=== PATIENT | female | born 1950 | race Caucasian/White ===

== ENCOUNTER 2023-01-03 10:05 | Emergency (ER) | payer OTHER ==
--- OUTSIDE RECORDS SUMMARY | 2023-01-03 10:10 | XMS REPORT | Continuity of Care Document ---
:1950 Author Organization [facility] t Address [address] [place] [address] Care Team Providers Name Role Phone SAHARA Attending Clinician Unavailable KAE Attending Clinician Unavailable Shane Dumont Attending Clinician [phone] Thompson Dozier Attending Clinician Yoan Gilliam Attending Clinician Davian Boyer Attending Clinician Jermaine Go Attending Clinician Venkata Lizarraga Attending Clinician SAHARA Admitting Clinician Unavailable KAE Admitting Clinician Unavailable Thompson Dozier Admitting Clinician Yoan Gilliam Admitting Clinician Venkata Lizarraga Admitting Clinician Payers Payer Name Policy Type Policy Number Effective Date Expiration Date S rodger [place]ICARE [place]: [id number] 2014 [employer] 00:00:00 [employer] [id number] 2018 [employer] 00:00:00 (MEDICARE SUPPLEMENT) CGS (MEDICARE DME [id number] 2014 [facility]) 00:00:00 [id number] 2018-07-24 INSURANCE COMPANY 00:00:00 (MEDICARE SUPPLEMENT) Problems Condition Condition Condition Status Onset Resolution Last Treating Co mments Source Name Details Category Date Date Treatment Clinician Date Chronic Chronic Problem Active Janny pain 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 00:00: dic 00 Sports Medicin e Lumbar Lumbar Problem Active Janny radiculopa Radiculopa 5-06 Or thope thy thy 00:00: dic 00 Sports Medicin e Pain of Pain of Problem Active Janny right knee Right Knee 5-06 Or thope joint Joint 00:00: dic 00 Sports Medicin e History of History of Problem Active A zalea revision Revision 03-28 Orthop e of right of Right 00:00: dic total knee Total Knee 00 Sp orts arthroplas Arthroplas Me dicin ty ty e Insertiona Insertiona Problem Active A zalea l Achilles l Achilles 08-16 Or thope tendinopat Tendinopat 00:00: di c hy hy 00 Sports Medicin e Contractur Contractur Problem Active A zalea e of right e of Right 08-16 Or thope Achilles Achilles 00:00: dic tendon Tendon 00 Sports Medicin e Pain in Pain in Problem Active Janny right knee Right Knee 05-24 Or thope 00:00: dic 00 Sports Medicin e NEW PT/ NEW PT/ Diagnosis Active 2016-112017-11-03 Memoria ABNORMAL ABNORMAL 2-11 15:20:00 l IMAGING OF IMAGING OF 00:00: He kareem HEART AND HEART AND 00 CO CO Active 11/02/2017 [facility] Z12.31 - Z12.31 - Diagnosis Active 2017-08-14 Memfanny ENCNTR ENCNTR 9-05 14:12:00 l SCREEN SCREEN 00:01: [place] MAMMOGRAM MAMMOGRAM 00 FOR MA FOR MA Active 07/28/2017 NIKHIL Vergara CP CP Active Diagnosis Active 2015-03-09 Memoria 03/07/2015-15 14:29:00 l NIKHIL Vergara 00:00: [facility] 00 Encounter Encounter Problem 2017-08-10 Memfanny for for 00:58:37 l screening screening Herm srinivasan mammogram mammogram for for malignant malignant neoplasm neoplasm of breast of breast 08/10/2017 NIKHIL Vergara Essential Essential Problem 2018-03-09 Memoria (primary) (primary) 19:31:08 l hypertensi hypertensi Galileo serna on on 03/09/2018 [facility] Hyperlipid Hyperlipi Problem 2018-03-09 Memoria artie poon, 19:31:08 l unspecifie unspecifie He rmann d d 03/09/2018 [facility] Mass of Mass of Problem Resolve 2018-03-09 M sarah beth colon colon d 19:31:08 l (finding) (finding) Herm srinivasan Resolved Problem 03/09/2018 [facility] Hypertensi Hypertens Problem Active 2018-03-09 Memoria ve nedra 19:31:08 l disorder, disorder, Herm srinivasan systemic systemic arterial arterial (disorder) (disorder) Active Problem 03/09/2018 [facility] Hyperchole Hyperchol Problem Active 2018-03-09 Memoria sterolemia esterolemi 19:31:08 l (disorder) a Josiah n (disorder) Active Problem 03/09/2018 [facility] ENCNTR FOR ENCNTR Diagnosis Active 2017-11-03 [place] GENERAL FOR 15:20:00 l ADULT GENERAL [facility] MEDICAL ADULT EXAM W/ MEDICAL EXAM W/ Active [facility] History of Past Illness Condition Condition Condition Status Onset Resolution Last Treating Co mments Source Name Details Category Date Date Treatment Clinician Date Other Other Problem 2017-2018-03-09 2018-03-09 Memoria chest pain chest pain 1-13 19:31:08 19:31:08 l 12/05/2017 05:19: Josiah n 03/09/2018 13 [facility] Allergies, Adverse Reactions, Alerts Allergy Allergy Status Severity Reaction(s) Onset Inactive Treating Comm ents Source Name Type Date Date Clinician Codeine Allergy Active Janny to Orthope substanc dic e Sports Medicin e Social History Social Habit Start Date Stop Date Quantity Comments Source Social History 2015-03-08 2015-03-08 [facility] 07:43:26 07:43:26 Medications Ordered Filled Start Stop Current Ordering Indication Dosage Frequency Signature Comments Components Source Medication Medication Date Date Medication? Clinician (SIG) Name Name Protonix 2018- No 20 mg, Memoria 1-10 Route: PO, l 22:30: Drug form: ECTAB, Before Dinner, Dosing Weight 86.364, kg, Start date: 12/02/17 16:30:00 [employer], Duration: 30 day, Stop date: 12/31/17 16:30:00 [employer] Miralax No Notes: Memoria 1-10 Dissolve l 15:00: in 8 oz of water or juice. (Same as: Miralax) Losartan No Notes: Memoria 1-10 (Same as: l 15:00: Cozaar) Hydrochloro No Notes: Mohsen kalin thiazide 25 1-10 (Same as: l MG Oral 15:00: Hydrodiuri Herm srinivasan Tablet 00 l) With food. rosuvastati No Notes: Mohsen kalin n 1-10 (Same As: l 03:00: Crestor) pantoprazol Yes 20 mg = 1 M emoria e 20 MG 1-10 tab, PO, l Enteric 00:12: Before Blair 00 Dinner, # Tablet 30 tab, 0 [Protonix] Refill(s) oxybutynin No Notes: Memor ia 12-01 Same as: l 23:00: Ditropan) Aspirin 325 Yes 325 mg = 1 Memoria MG Oral 09 tab, PO, l Tablet 21:52: Bedtime, # Madelyn nn 00 30 tab, 0 Refill(s) Vitamin E Yes 400 Memoria 09 IntlUnit, l 21:52: PO, BID, 0 Refill(s) rosuvastati No 20 mg = 1 M emoria n 20 mg -09 tab, PO, l oral tablet 21:52: Bedtime, 0 Refill(s) Nitroglycer No Notes: Mohsen kalin in 0.4 MG 12-01 (Same l Sublingual 20:05: as:Nitroqu H ermann Tablet 00 ick, Nitrostat) "Do Not Crush" Sublingual tablet Miralax Yes 17 gm, PO, Mohsen kalin - Daily l 17:36: oxybutynin Yes 5 mg = 1 Mem oria 5 mg oral 12-01 tab, PO, l tablet 17:35: BID BD Normal No Notes: Memori a Saline 12-01 (Same as: l Flush 13:00: BD Blair 00 Posiflush) Nitroglycer No Notes: (20 Memoria in 0.02 1-09 mg NTG per l MG/MG 12:42: gram) Blair Topical 00 (Same Ointment as:Nitro-B id) Saline No Notes: Memoria Flush 0.9% 12-01 (Same as: l 12:42: BD [place] 00 Posiflush) rosuvastati 2016-11 Yes 20 mg = 1 M emoria n 20 mg 2-12 tab, PO, l oral tablet 20:49: Bedtime, # Blair 00 90 tab, 3 Refill(s), Pharmacy: [facility] [id number] Vitamin E 2016-11 Yes PO, Daily, Me moria 2-12 0 l 17:31: Refill(s) [place] 00 Vitamin D3 2016-11 Yes 0 Memoria 2-12 Refill(s) l 17:31: Blair 00 oxybutynin 2016-11 Yes 10 mg = 1 Me moria 10 mg oral 2-12 tab, PO, l tablet, 17:31: Daily, 0 Josiah n extended 00 Refill(s) release Enoxaparin No Notes: Memor ia 4-16 (Same as: l 15:00: Lovenox) Blair 00 Potassium No Notes: Memori a Chloride 20 4-16 (Same as: l MEQ 14:18: K-Dur 20) Harrison Extended 00 "Do Not Release Crush" Tablet With food and full glass of water Saline No Notes: Memoria Flush 0.9% -16 (Same as: l 14:00: BD [place] Posiflush) Famotidine Yes 1 tab, PO, M emoria 26.6 MG / 4-16 TID, 0 l Ibuprofen 07:23: Refill(s) Her hopson 800 MG Oral 00 Tablet [Duexis] losartan Yes 100 mg = 1 Mem oria 100 mg oral 4-16 tab, PO, l tablet 07:23: Daily, 0 Blair 00 Refill(s) pravastatin Yes 40 mg = 1 M emoria 40 mg oral 4-16 tab, PO, l tablet 07:23: Bedtime, 0 Madelyn nn 00 Refill(s) Hydrochloro Yes 25 mg = 1 M emoria thiazide 25 03-08 tab, PO, l MG Oral 07:23: Daily, 0 Josiah n Tablet 00 Refill(s) Saline No Notes: Memoria Flush 0.9% 03-08 (Same as: l 07:02: BD [place] Posiflush) Acetaminoph No Notes: Do M emoria en 03-08 not exceed l 07:02: 4 gm/day. Blair (Same as: Tylenol) Morphine No Notes: Memoria 03-08 (Same l 07:02: as:MORPhin e Sulfate) Nitroglycer No Notes: Mohsen kalin in 03-08 (Same l 07:02: as:Nitroqu ick, Nitrostat) "Do Not Crush" Sublingual tablet Ondansetron No Notes: Mohsen kalin 03-08 (Same as: l 07:02: Zofran) Tramadol No 50 kg, Memori a 03-08 Priority: l 05:18: STAT, Blair 00 Start date: 03/08/15 0:18:00, Stop date: 03/08/15 0:18:00 Sodium No IV, 0 Memoria Chloride 4-16 ml/hr, l 0.9% IV 03:55: PRN, PRN Josiah n 00 Line Flush, Start date: 03/07/15 22:55:00, Duration: 30, 25 ml Saline No Notes: Memoria Flush 0.9% 03-08 (Same as: l 03:53: BD [place] Posiflush) Aspirin No Notes: Memoria -16 Take with l 03:53: food. Blair 00 influenza 2006- No Anais L 0.5 ml, M emoria virus -14 [place] Route: IM, l vaccine, 15:00: Drug Form: Her hopson inactivated 00 INJ, ONCE, Start date: 11/05/07 9:00:00, Stop date: 11/05/07 9:00:00LOT #: ___ Mfg: (Same as: Fluzone) acetaminoph acetaminoph No acetaminop Janny en 300 en 300 hen 300 Orthope mg-codeine mg-codeine mg-codeine dic 30 mg 30 mg 30 mg Sports tablet TK tablet TK tablet TK Medicin 1-2 TS PO Q 1-2 TS PO Q 1-2 TS PO e 6 HOURS PRN 6 HOURS PRN Q 6 HOURS PRN allopurinol allopurinol No allopurino Janny 100 mg 100 mg l 100 mg Orthope tablet tablet tablet dic Sports Medicin e atorvastati atorvastati No atorvastat Janny n 10 mg n 10 mg in 10 mg Ortho pe tablet tablet tablet dic Sports Medicin e atorvastati atorvastati No atorvastat Janny n 80 mg n 80 mg in 80 mg Ortho pe tablet tablet tablet dic Sports Medicin e cefuroxime cefuroxime No cefuroxime Janny axetil 250 axetil 250 axetil 250 Orthope mg tablet mg tablet mg tablet dic TAKE 1 TAKE 1 TAKE 1 Sports TABLET BY TABLET BY TABLET BY Medicin MOUTH TWICE MOUTH TWICE MOUTH e DAILY FOR 5 DAILY FOR 5 TWICE DAYS DAYS DAILY FOR 5 DAYS [facility] Janny Orthope dic Sports Medicin e doxycycline doxycycline No doxycyclin Janny monohydrate monohydrate e O rthope 100 mg 100 mg monohydrat dic capsule capsule e 100 mg Sport s TAKE 1 TAKE 1 capsule Medicin CAPSULE BY CAPSULE BY TAKE 1 e MOUTH TWICE MOUTH TWICE CAPSULE BY DAILY FOR 5 DAILY FOR 5 MOUTH DAYS DAYS TWICE DAILY FOR 5 DAYS duloxetine duloxetine No duloxetine Janny 30 mg 30 mg 30 mg Orthope capsule,del capsule,del capsule,de dic ayed ayed layed Sports release release release Medici n TAKE 1 TAKE 1 TAKE 1 e CAPSULE BY CAPSULE BY CAPSULE BY MOUTH EVERY MOUTH EVERY MOUTH DAY DAY EVERY DAY fluconazole fluconazole No fluconazol Janny 100 mg 100 mg e 100 mg Orthope tablet tablet tablet dic Sports Medicin e glucosamine glucosamine No glucosamin Janny 116 116 e 116 Orthope mg-chondroi mg-chondroi mg-chondro dic tin 100 tin 100 itin 100 Sport s mg-dietary mg-dietary mg-dietary Medicin supplement supplement supplement e #25 capsule #25 capsule #25 Take by Take by capsule oral route. oral route. Take by oral route. hydrochloro hydrochloro No hydrochlor Janny thiazide 25 thiazide 25 othiazide Orthope mg tabs mg tabs 25 mg tabs dic Sports Medicin e hydrochloro hydrochloro No hydrochlor Janny thiazide thiazide othiazide Or thope 12.5 mg 12.5 mg 12.5 mg dic tablet tablet tablet Sports Medicin e hydrochloro hydrochloro No hydrochlor Janny thiazide 25 thiazide 25 othiazide Orthope mg tablet mg tablet 25 mg dic tablet Sports Medicin e hydrocodone hydrocodone No hydrocodon Janny 5 5 e 5 Orthope mg-acetamin mg-acetamin mg-acetami dic ophen 325 ophen 325 nophen 325 Sports mg tablet mg tablet mg tablet Medicin TAKE 1 TO 2 TAKE 1 TO 2 TAKE 1 TO e TABLETS BY TABLETS BY 2 TABLETS MOUTH EVERY MOUTH EVERY BY MOUTH 4 TO 6 4 TO 6 EVERY 4 TO HOURS HOURS 6 HOURS NEEDED FOR NEEDED FOR NEEDED FOR PAIN PAIN PAIN losartan losartan No losartan Aza edwige 100 mg 100 mg 100 mg Orthope tablet tablet tablet dic Sports Medicin e losartan losartan No losartan Aza edwige potassium potassium potassium Orthope 100 mg tabs 100 mg tabs 100 mg dic tabs Sports Medicin e meloxicam meloxicam No meloxicam Janny 15 mg 15 mg 15 mg Orthope tablet TAKE tablet TAKE tablet dic 1 TABLET BY 1 TABLET BY TAKE 1 Sports MOUTH EVERY MOUTH EVERY TABLET BY Medicin DAY DAY MOUTH e EVERY DAY meloxicam meloxicam No meloxicam Janny 7.5 mg 7.5 mg 7.5 mg Orthope tablet tablet tablet dic Sports Medicin e methylpredn methylpredn No methylpred Janny isolone 4 isolone 4 nisolone 4 Orthope mg tablets mg tablets mg tablets dic in a dose in a dose in a dose Sports pack FOLLOW pack FOLLOW pack M edicin PACKAGE PACKAGE FOLLOW e DIRECTIONS DIRECTIONS PACKAGE DIRECTIONS metoprolol metoprolol No metoprolol Janny succinate succinate succinate Orthope ER 25 mg ER 25 mg ER 25 mg dic tablet,exte tablet,exte tablet,ext Sports nded nded ended Medicin release 24 release 24 release 24 e hr hr hr mupirocin 2 mupirocin 2 No mupirocin Janny % topical % topical 2 % Ortho pe ointment ointment topical dic APPLY SMALL APPLY SMALL ointment Sports AMOUNT AMOUNT APPLY Medicin TOPICALLY TOPICALLY SMALL e IN EACH IN EACH AMOUNT NOSTRIL NOSTRIL TOPICALLY TWICE DAILY TWICE DAILY IN EACH BEFORE BEFORE NOSTRIL SURGERY FOR SURGERY FOR TWICE 7 DAYS 7 DAYS DAILY BEFORE SURGERY FOR 7 DAYS nitroglycer nitroglycer No nitroglyce Janny in 0.4 mg in 0.4 mg rin 0.4 mg Orthope sublingual sublingual sublingual dic tablet tablet tablet Sports PLACE [address] 1 Medici n TABLET TABLET TABLET e UNDER THE UNDER THE UNDER THE TONGUE AT TONGUE AT TONGUE AT FIRST SIGN FIRST SIGN FIRST SIGN OF ATTACK OF ATTACK OF ATTACK MAY REPEAT MAY REPEAT MAY REPEAT DOSE EVERY DOSE EVERY DOSE EVERY 5 MINUTES 5 MINUTES 5 MINUTES UP TO 3 UP TO 3 UP TO 3 TABLETS IF TABLETS IF TABLETS IF NO RELIEF NO RELIEF NO RELIEF CALL 911 CALL 911 CALL 911 oxybutynin oxybutynin No oxybutynin Janny chloride 5 chloride 5 chloride 5 Orthope mg tablet mg tablet mg tablet dic Sports Medicin e oxybutynin oxybutynin No oxybutynin Janny chloride ER chloride ER chloride Orthope 10 mg 10 mg ER 10 mg dic tablet,exte tablet,exte tablet,ext Sports nded nded ended Medicin release 24 release 24 release 24 e hr hr hr oxybutynin oxybutynin No oxybutynin Janny chloride ER chloride ER chloride Orthope 5 mg 5 mg ER 5 mg dic tablet,exte tablet,exte tablet,ext Sports nded nded ended Medicin release 24 release 24 release 24 e hr hr hr oxycodone-a oxycodone-a No oxycodone- Janny cetaminophe cetaminophe acetaminop Orthope n 5 mg-325 n 5 mg-325 hen 5 di c mg tablet mg tablet mg-325 mg Sports TAKE 1 TO 2 TAKE 1 TO 2 tablet Medicin TABLETS BY TABLETS BY TAKE 1 TO e MOUTH THREE MOUTH THREE 2 TABLETS TIMES DAILY TIMES DAILY BY MOUTH NEEDED NEEDED THREE TIMES DAILY NEEDED pravastatin pravastatin No pravastati Janny sodium 40 sodium 40 n sodium O rthope mg tabs mg tabs 40 mg tabs dic Sports Medicin e resveratrol resveratrol No resveratro Janny l Orthope dic Sports Medicin e sulfamethox sulfamethox No sulfametho Janny azole 800 azole 800 xazole 800 Orthope mg-trimetho mg-trimetho mg-trimeth dic prim 160 mg prim 160 mg oprim 160 Sports tablet TAKE tablet TAKE mg tablet Medicin 1 TABLET BY 1 TABLET BY TAKE 1 e MOUTH EVERY MOUTH EVERY TABLET BY 12 HOURS 12 HOURS MOUTH EVERY 12 HOURS vitamin vitamin No vitamin Janny C-vitamin C-vitamin C-vitamin Orthope [id number] [id number] [id number] dic Sports Medicin e Vitamin D3 Vitamin D3 No Vitamin D3 Janny Orthope dic Sports Medicin e vitamin E vitamin E No vitamin E Janny Orthope dic Sports Medicin e Immunizations Ordered Immunization Filled Immunization Date Status Commen ts Source Name Name influenza virus 2007-11-06 Completed [facility] vaccine, inactivated 00:15:00 Herm srinivasan influenza virus 2007-11-06 Completed [facility] vaccine, inactivated 00:15:00 Herm srinivasan Vital Signs Vital Name Observation Time Observation Value Comments Source Systolic (mm Hg) 2017-12-02 02:27:00 Mohsen rial [place] Diastolic (mm Hg) 2017-12-02 02:27:00 Mem orial [place] Respitory Rate 2017-12-02 02:27:00 Memori al [facility] Heart Rate 2017-12-02 02:27:00 [facility] Temperature Oral (F) 2017-12-02 02:27:00 97.9 F [facility] Systolic (mm Hg) 2017-12-01 21:19:00 Mohsen rial [place] Diastolic (mm Hg) 2017-12-01 21:19:00 Mem orial [place] Respitory Rate 2017-12-01 21:19:00 Memori al [place] Temperature Oral (F) 2017-12-01 21:19:00 98.1 F [facility] [place] Heart Rate 2017-12-01 21:19:00 [facility] [place] Systolic (mm Hg) 2017-12-01 20:22:00 Mohsen rial [place] Diastolic (mm Hg) 2017-12-01 20:22:00 Mem orial [place] Temperature Oral (F) 2017-12-01 20:22:00 98.0 F [facility] [place] Respitory Rate 2017-12-01 20:22:00 Memori al [facility] Heart Rate 2017-12-01 16:19:00 [facility] Weight 2017-12-01 11:21:00 [facility] BMI Calculated 2017-12-01 11:21:00 Memori al [place] Height 2017-12-01 11:21:00 182.88 cm [facility] Height 2017-11-03 20:33:00 182.88 cm [facility] Weight 2017-11-03 20:33:00 [facility] BMI Calculated 2017-11-03 20:33:00 Memori al [place] Temperature Oral (F) 2017-11-03 20:33:00 98.6 F [facility] Respitory Rate 2017-11-03 20:33:00 Memori al [place] Systolic (mm Hg) 2017-11-03 20:33:00 Mohsen rial [place] Diastolic (mm Hg) 2017-11-03 20:33:00 Mem orial [place] Heart Rate 2017-11-03 20:33:00 [facility] Respitory Rate 2015-03-08 17:00:00 Memori al [place] Heart Rate 2015-03-08 17:00:00 [facility] [place] Diastolic (mm Hg) 2015-03-08 17:00:00 Mem orial [place] Systolic (mm Hg) 2015-03-08 17:00:00 Mohsen rial [place] Diastolic (mm Hg) 2015-03-08 13:11:00 Mem orial [place] Systolic (mm Hg) 2015-03-08 13:11:00 Mohsen rial [place] Respitory Rate 2015-03-08 13:11:00 Memori al [place] Heart Rate 2015-03-08 13:11:00 [facility] [place] Heart Rate 2015-03-08 09:37:00 [facility] Temperature Oral (F) 2015-03-08 09:37:00 97.4 F [facility] Systolic (mm Hg) 2015-03-08 09:37:00 Mohsen rial [place] Diastolic (mm Hg) 2015-03-08 09:37:00 Mem orial [place] Respitory Rate 2015-03-08 09:37:00 Memori al [place] Weight 2015-03-08 07:29:00 [facility] BMI Calculated 2015-03-08 07:29:00 Memori al [place] Height 2015-03-08 07:29:00 180.34 cm [facility] Temperature Oral (F) 2015-03-08 07:18:00 97.3 F [facility] Temperature Oral (F) 2015-03-08 06:15:00 98.3 F [facility] Weight 2015-03-08 03:34:00 [facility] BMI Calculated 2015-03-08 03:34:00 Esther Loving Height 2015-03-08 03:34:00 182.88 cm [facility] Procedures Procedure Date / Time Performing Clinician Source Performed Revision of Total Knee 2021-12-02 00:00:00 Saeid gan Orthopedic Arthroplasty, All Sports Medicin e Components Total Replacement of 2020-06-18 00:00:00 Janny Orthopedic Right Knee Joint Sports Medicine Repair of Meniscus 2019-04-21 00:00:00 Janny Or thopedic Sports Medicine Endoscopy 2018-03-24 00:00:00 Janny Ortho pedic Sports Medicine Biopsy of Tongue 2018-02-23 00:00:00 Janny Orth opedic Sports Medicine Foot repair 2014-12-01 06:00:00 Haydee emiliana Removal of Bone 2013-11-23 00:00:00 Janny Ortho pedic Fragments Sports Medicine Colostomy 1997-12-01 06:00:00 Haydee emiliana Revision of Colostomy 1997-11-23 00:00:00 Janny Orthopedic Sports Medicine Sigmoid Colectomy 1997-11-23 00:00:00 Janny Howard hopedic Sports Medicine Hysterectomy 1984-12-01 06:00:00 [facility] Her hopson Hysterectomy 1984-11-23 00:00:00 Janny Ortho pedic Sports Medicine Excision of Janny Orthopedi c Intra-abdominal Mass Sports Medi cine Encounters Start End Encounter Admission Attending Care Care Encounter Source Date/Time Date/Time Type Type Clinicians Facility Department ID 2022-06-03 2022-06-03 Outpatient ZAZ_GOODFRI AOSM AOSM [id number] Janny 10:25:00 10:25:00 ED_MILVIA [id number] Orth ope dic Sports Medicin e 2022-06-03 2022-06-03 Outpatient ZAZ_GOODFRI AOSM AOSM [id number] Janny 00:00:00 00:00:00 EDSUDHA [id number] Orth ope dic Sports Medicin e 2022-06-02 2022-06-02 Outpatient OLS_GOODFRI AOSM AOSM [id number] Janny 12:19:00 12:19:00 EDNGUYENJr [id number] Orthop e dic Sports Medicin e 2022-05-15 2022-05-15 Outpatient ZAZ_GOODFRI AOSM AOSM [id number] Ajnny 02:43:00 02:43:00 ED_MILVIA [id number] Orth ope dic Sports Medicin e 2022-05-15 2022-05-15 Outpatient OLS_GOODFRI AOSM AOSM [id number] Janny 02:43:00 02:43:00 ED_DENISSE [id number] Orthop e dic Sports Medicin e 2022-05-15 2022-05-15 Outpatient ZAZ_GOODFRI AOSM AOSM [id number] Janny 02:43:00 02:43:00 ED_MILVIA [id number] Orth ope dic Sports Medicin e 2022-05-09 2022-05-09 Outpatient OLS_GOODFRI AOSM AOSM [id number] Janny 09:31:00 09:31:00 ED_DENISSE [id number] Orthop e dic Sports Medicin e 2022-05-09 2022-05-09 Outpatient AMINAH Dumont AOSM [id number] 00:00:00 00:00:00 Shane Lugo [id number] 2022-05-09 2022-05-09 Shane Lugo AOSM [place] - Ortho [id number] Janny 00:00:00 00:00:00 Radha Dumont MD: 708 E OLS [place] [place] [facility] Sports , Clinic_[facility] e [id number] , Ph. 2022-04-04 2022-04-04 Outpatient ZAZ_GOODFRI AOSM AOSM [id number] Janny 11:26:00 11:26:00 ED_MILVIA [id number] Orth ope dic Sports Medicin e 2022-04-04 2022-04-04 Outpatient ZAZ_GOODFRI AOSM AOSM [id number] Janny 11:26:00 11:26:00 EDSUDHA [id number] Orth ope dic Sports Medicin e 2017-12-01 2017-12-02 Observatio nullFlavo [facility] [id number] Memoria 11:09:00 03:15:00 n r [place] 05 l [facility] 2017-12-01 2017-12-01 Outpatient Jacoby, NIKHIL9 [facility] [id number] 05:09:00 21:15:00 Fakhri H 05 2017-12-01 2017-12-01 Outpatient Jacoby, 9 [facility] [id number] 05:09:00 21:15:00 Fakhri H 05 2017-11-11 2017-11-12 Outpatient nullFlavo [facility] [id number] Memoria 12:58:00 05:59:00 r [place] 04 [facility] 2017-11-11 2017-11-11 Outpatient Yoan Gilliam9 9 [id number] 06:58:00 23:59:00 [facility] 2017-11-03 2017-11-04 Outpatient [facility] [id number] Memoria 20:17:00 05:59:00 r [facility] 01 l Cardiology [facility] 2017-11-03 2017-11-03 Outpatient Yoan Gilliam [facility] [id number] 14:17:00 23:59:00 Ahmed 2017-09-30 2017-10-01 Outpt Diag nullFlavo [facility] [id number] Memoria 15:46:00 05:59:00 Services r Outpatient 04 l [facility] 2017-09-30 2017-09-30 Outpatient JESÚS Boyer MH28 [id number] 09:46:00 23:59:00 Davian Hyman 2017-08-07 2017-08-08 Outpt Diag nullFlavo [facility] [id number] Memoria 20:10:00 04:59:00 Services r Outpatient 03 l Imaging [facility] [place] 2017-08-07 2017-08-07 Outpatient NIKHIL Go28 [id number] 15:10:00 23:59:00 Jermaine Erin 03 2015-03-08 2015-03-08 OBS nullFlavo [facility] [id number] Memoria 03:28:00 22:30:00 Observatio r [place] 00 l n Patient [facility] 2015-03-07 2015-03-08 Outpatient Venkata Lizarraga [id number] 22:28:00 17:30:00 Ali [id number] 2013-12-09 Outpatient [id number] [facility] 14:10:00 23:59:00 [id number] Outpati [id number] ent 01 Imaging Ursula Results Test Description Test Time Test Comments Results Result Comments Source CARDIAC ENZYMES 2017-12-02 02:04:00 Test Item Value Reference Range Interpretation Comme nts Troponin-I (test code = no gt See_Comment [Au tomated message] The system Troponin-I) which generated this result transmitted ref erence range: <=0.40. The ref erence range was not used to interpr et this result as normal/abnormal . [facility] [id number] 20:17:00 Test Item Value Reference Range Interpretation Comments Troponin-I (test code no gt See_Comment [Auto mated message] The = Troponin-I) system which g enerated this result transmit lolita reference range : <=0.40. The reference r sudhir was not used to interpr et this result as lauro l/abnormal. [id number] 14:09:00 Test Item Value Reference Range Interpretation Comments Lymphocytes (test code = Lymphocytes) 23.7 20.0-40.0 [id number] 14:09:00 Test Item Value Reference Range Interpretation Comments Monocytes (test code = Monocytes) 9.5 2.0-12.0 [facility]VfsflykSIMFTFQVWX5795-26-37 14:09:00 Test Item Value Reference Range Interpretation Comments Monocytes # (test code 0.5 See_Comment [Aut omated message] The = Monocytes #) system which generated this result tra nsmitted reference range : <=0.8. The reference r sudhir was not used to int erpret this result as normal/abnormal . [facility] HospitalIbpdfesIMGBIZZLHP5534-28-40 14:09:00 Test Item Value Reference Range Interpretation Comments Basophils # (test code 0.1 See_Comment [Aut omated message] The = Basophils #) system which generated this result tra nsmitted reference range : <=0.2. The reference r sudhir was not used to int erpret this result as normal/abnormal . [facility]icsYdccwwuEZBJPTYFSE8869-88-94 14:09:00 Test Item Value Reference Range Interpretation Comments Eosinophils # (test code 0.2 See_Comment [A utomated message] The = Eosinophils #) system whic h generated this result tra nsmitted reference range : <=0.5. The reference r sudhir was not used to int erpret this result as normal/abnormal . [facility]icsYuqiedjLOMKRMJTXJ4681-15-42 14:09:00 Test Item Value Reference Range Interpretation Comments Segs (test code = Segs) 62.1 45.0-75.0 [facility] 14:09:00 Test Item Value Reference Range Interpretation Comments Total CK (test code = Total CK) 141 12-191 [facility]Zen[facility] [id number] 14:09:00 Test Item Value Reference Range Interpretation Comments CK MB (test code = CK MB) 3.9 0.5-3.6 [facility] [id number] 14:09:00 Test Item Value Reference Range Interpretation Comments Troponin-I (test code no gt See_Comment [Auto mated message] The = Troponin-I) system which g enerated this result transmit lolita reference range : <=0.40. The reference r sudhir was not used to interpr et this result as lauro l/abnormal. [facility] 14:09:00 Test Item Value Reference Range Interpretation Comments CK MB Index (test 2.8 1 See_Comment [Automate d message] The code = CK MB Index) system w [facility] generated this result transmit lolita reference range : <=2.5. The reference range was not used to interpr et this result as lauro l/abnormal. [facility] [employer] [id number] 14:09:00 Test Item Value Reference Range Interpretation Comments eGFR (test code = eGFR) 88 [facility] [employer] [id number] 14:09:00 Test Item Value Reference Range Interpretation Comments A/G Ratio (test code = A/G Ratio) 1.2 1 0.7-1.6 [facility]2018-01-09 14:09:00 Test Item Value Reference Range Interpretation Comments Albumin Lvl (test code = Albumin Lvl) 3.9 3.5-5.0 [place] 599908-01-09 14:09:00 Test Item Value Reference Range Interpretation Comments CO2 (test code = CO2) 31 24-32 [facility]2018-01-09 14:09:00 Test Item Value Reference Range Interpretation Comments Calcium Lvl (test code = Calcium Lvl) 9.0 8.5-10.5 [facility]2018-01-09 14:09:00 Test Item Value Reference Range Interpretation Comments Potassium Lvl (test code = Potassium 3.5 3.5-5.1 Lvl) [facility]2018-01-09 14:09:00 Test Item Value Reference Range Interpretation Comments Chloride Lvl (test code = Chloride Lvl) 105 95-109 [place] 599908-01-09 14:09:00 Test Item Value Reference Range Interpretation Comments Sodium Lvl (test code = Sodium Lvl) 143 135-145 [facility]2018-01-09 14:09:00 Test Item Value Reference Range Interpretation Comments Creatinine Lvl (test code = Creatinine 0.71 0.50-1.40 Lvl) [facility]2018-01-09 14:09:00 Test Item Value Reference Range Interpretation Comments Total Protein (test code = Total 7.2 6.4-8.4 Protein) [facility]2018-01-09 14:09:00 Test Item Value Reference Range Interpretation Comments B/C Ratio (test code = B/C Ratio) 23 1 6-25 [place] 599908-01-09 14:09:00 Test Item Value Reference Range Interpretation Comments Globulin (test code = Globulin) 3.3 2.7-4.2 [place] 599908-01-09 14:09:00 Test Item Value Reference Range Interpretation Comments ALT (test code = ALT) 31 See_Comment [Auto mated message] The system which ge nerated this result transmit lolita reference range : <=65. The reference range was not used to interpr et this result as lauro l/abnormal. [facility]2018-01-09 14:09:00 Test Item Value Reference Range Interpretation Comments Bili Total (test code = Bili Total) 0.5 0.2-1.3 [place] 599908-01-09 14:09:00 Test Item Value Reference Range Interpretation Comments AGAP (test code = AGAP) 10.5 10.0-20.0 [facility]2018-01-09 14:09:00 Test Item Value Reference Range Interpretation Comments AST (test code = AST) 20 See_Comment [Auto mated message] The system which ge nerated this result transmit lolita reference range : <=37. The reference range was not used to interpr et this result as lauro l/abnormal. [facility]2018-01-09 14:09:00 Test Item Value Reference Range Interpretation Comments Alk Phos (test code = Alk Phos) 49 39-136 [facility]2018-01-09 14:09:00 Test Item Value Reference Range Interpretation Comments Glucose Lvl (test code = Glucose Lvl) 91 70-99 [facility]2018-01-09 14:09:00 Test Item Value Reference Range Interpretation Comments BUN (test code = BUN) 16 7-22 [facility]YejghkgULDBYDQKAE9463-70-31 14:09:00 Test Item Value Reference Range Interpretation Comments MCHC (test code = MCHC) 35.0 32.0-36.0 [facility] AustinZvlrsydLWAAQPIIBA0964-94-09 14:09:00 Test Item Value Reference Range Interpretation Comments RDW (test code = RDW) 13.0 11.5-14.5 [facility] AustinDxqtvkqMNGEQTUENI7328-52-30 14:09:00 Test Item Value Reference Range Interpretation Comments Platelet (test code = Platelet) 205 133-450 [facility] AustinOruxyexJDRFPOHZHY8513-22-28 14:09:00 Test Item Value Reference Range Interpretation Comments MPV (test code = MPV) 7.4 7.4-10.4 [facility] AustinKmnzsqrFXQOGXKBNK6423-89-67 14:09:00 Test Item Value Reference Range Interpretation Comments MCH (test code = MCH) 31.2 pg 27.0-31.0 [facility] AustinSnhgxsrMBNEFHXUSZ1450-40-46 14:09:00 Test Item Value Reference Range Interpretation Comments MCV (test code = MCV) 89.3 80.0-98.0 [facility] AustinKfarwgnJHYQMQBDGC8491-80-28 14:09:00 Test Item Value Reference Range Interpretation Comments WBC (test code = WBC) 5.3 3.7-10.4 [facility] AustinDwftwcoHQDCFAWZTW1242-92-87 14:09:00 Test Item Value Reference Range Interpretation Comments RBC (test code = RBC) 4.39 4.20-5.40 [facility] AustinRbkrrgeSLLLAXMVEA8598-35-83 14:09:00 Test Item Value Reference Range Interpretation Comments Hgb (test code = Hgb) 13.7 12.0-16.0 [facility] AustinNpsxoyxXOHSICQTHG2198-52-14 14:09:00 Test Item Value Reference Range Interpretation Comments Hct (test code = Hct) 39.2 36.0-48.0 [facility] AustinBfznaogPGJDPISCWX6273-70-36 14:09:00 Test Item Value Reference Range Interpretation Comments Eosinophils (test code = 3.5 See_Comment [A utomated message] The Eosinophils) system which ge nerated this result tra nsmitted reference range : <=4.0. The reference r sudhir was not used to int erpret this result as normal/abnormal . [facility] AustinDiohchwNVIQQKKVDH1543-56-14 14:09:00 Test Item Value Reference Range Interpretation Comments Segs-Bands # (test code = Segs-Bands #) 3.3 1.5-8.1 [facility] AustinAbqeuycTNUDHHWGBU8772-66-35 14:09:00 Test Item Value Reference Range Interpretation Comments Lymphocytes # (test code = Lymphocytes 1.3 1.0-5.5 #) [facility] AustinHyimhblNBWRUFDQLD6674-49-46 14:09:00 Test Item Value Reference Range Interpretation Comments Basophils (test code = 1.2 See_Comment [Aut omated message] The Basophils) system which ge nerated this result tra nsmitted reference range : <=1.0. The reference r sudhir was not used to int erpret this result as normal/abnormal . [facility]icsFind[facility] [id number] 12:58:00 Test Item Value Reference Range Interpretation Comments CK MB (test code = CK MB) 2.7 0.5-3.6 [facility] [id number] 12:58:00 Test Item Value Reference Range Interpretation Comments CK MB Index (test 1.6 See_Comment [Automate d message] The code = CK MB Index) system w [employer] generated this result transmit lolita reference range : <=2.5. The reference range was not used to interpr et this result as lauro l/abnormal. [facility] [employer]2015-04-16 12:58:00 Test Item Value Reference Range Interpretation Comments Total CK (test code = Total CK) 171 12-191 [facility] [employer]2015-04-16 12:58:00 Test Item Value Reference Range Interpretation Comments Troponin-I (test code no gt See_Comment [Auto mated message] The = Troponin-I) system which g enerated this result transmit lolita reference range : <=0.40. The reference r sudhir was not used to interpr et this result as lauro l/abnormal. [facility] [employer]2015-04-16 08:05:00 Test Item Value Reference Range Interpretation Comments Total CK (test code = Total CK) 195 12-191 [facility] [employer]2015-04-16 08:05:00 Test Item Value Reference Range Interpretation Comments Troponin-I (test code no gt See_Comment [Auto mated message] The = Troponin-I) system which g enerated this result transmit lolita reference range : <=0.40. The reference r sudhir was not used to interpr et this result as lauro l/abnormal. [facility] [employer]2015-04-16 08:05:00 Test Item Value Reference Range Interpretation Comments CK MB Index (test 1.5 See_Comment [Automate d message] The code = CK MB Index) system w [employer] generated this result transmit lolita reference range : <=2.5. The reference range was not used to interpr et this result as lauro l/abnormal. [employer]2015-04-16 08:05:00 Test Item Value Reference Range Interpretation Comments CK MB (test code = CK MB) 3.0 0.5-3.6 [facility] [employer] [id number] 08:05:00 Test Item Value Reference Range Interpretation Comments eGFR (test code = eGFR) 67 [facility] [employer] [id number] 08:05:00 Test Item Value Reference Range Interpretation Comments BUN (test code = BUN) 13 7-22 [facility]2015-04-16 08:05:00 Test Item Value Reference Range Interpretation Comments Glucose Lvl (test code = Glucose Lvl) 102 70-99 [facility]2015-04-16 08:05:00 Test Item Value Reference Range Interpretation Comments Sodium Lvl (test code = Sodium Lvl) 142 135-145 [facility]2015-04-16 08:05:00 Test Item Value Reference Range Interpretation Comments Creatinine Lvl (test code = Creatinine 0.9 0.5-1.4 Lvl) [facility]2015-04-16 08:05:00 Test Item Value Reference Range Interpretation Comments Calcium Lvl (test code = Calcium Lvl) 8.9 8.5-10.5 [facility]2015-04-16 08:05:00 Test Item Value Reference Range Interpretation Comments CO2 (test code = CO2) 31 24-32 [facility]2015-04-16 08:05:00 Test Item Value Reference Range Interpretation Comments Potassium Lvl (test code = Potassium 3.2 3.5-5.1 Lvl) [facility]2015-04-16 08:05:00 Test Item Value Reference Range Interpretation Comments Chloride Lvl (test code = Chloride Lvl) 103 95-109 [facility]2015-04-16 08:05:00 Test Item Value Reference Range Interpretation Comments AGAP (test code = AGAP) 11.2 10.0-20.0 [facility] AustinSibamviHFYKEAOZKX0628-60-06 08:05:00 Test Item Value Reference Range Interpretation Comments Lymphocytes # (test code = Lymphocytes 1.7 1.0-5.5 #) [facility] AustinVrplthiDHQZWLOJXX3181-46-43 08:05:00 Test Item Value Reference Range Interpretation Comments Monocytes # (test code 0.5 See_Comment [Aut omated message] The = Monocytes #) system which generated this result tra nsmitted reference range : <=0.8. The reference r sudhir was not used to int erpret this result as normal/abnormal . [facility] AustinPhdxddtVTJKCSLSAW6917-37-54 08:05:00 Test Item Value Reference Range Interpretation Comments Basophils (test code = 0.6 See_Comment [Aut omated message] The Basophils) system which ge nerated this result tra nsmitted reference range : <=1.0. The reference r sudhir was not used to int erpret this result as normal/abnormal . [facility] AustinOdilqjpJNMXFYNEVA9701-40-16 08:05:00 Test Item Value Reference Range Interpretation Comments Segs-Bands # (test code = Segs-Bands #) 3.0 1.5-8.1 [facility] AustinLrkwpjuZWKXBOSMRU9396-22-44 08:05:00 Test Item Value Reference Range Interpretation Comments Eosinophils (test code = 4.1 See_Comment [A utomated message] The Eosinophils) system which ge nerated this result tra nsmitted reference range : <=4.0. The reference r sudhir was not used to int erpret this result as normal/abnormal . [facility] AustinZysnxbiUAEOBULCVC9672-94-06 08:05:00 Test Item Value Reference Range Interpretation Comments Lymphocytes (test code = Lymphocytes) 31.7 20.0-40.0 [facility] AustinVynnahyZUAGOHKEYM1288-68-68 08:05:00 Test Item Value Reference Range Interpretation Comments Monocytes (test code = Monocytes) 9.8 2.0-12.0 [facility] AustinRvbcisoWMRHRWSUAV4903-20-48 08:05:00 Test Item Value Reference Range Interpretation Comments Segs (test code = Segs) 53.8 45.0-75.0 [facility] AustinNfkaxlwAPKMTPZKFD7092-02-35 08:05:00 Test Item Value Reference Range Interpretation Comments Eosinophils # (test code 0.2 See_Comment [A utomated message] The = Eosinophils #) system [facility] h generated this result tra nsmitted reference range : <=0.5. The reference r sudhir was not used to int erpret this result as normal/abnormal . [facility] AustinPmtbjfpMGJIUDWBQD2461-18-66 08:05:00 Test Item Value Reference Range Interpretation Comments Basophils # (test code 0.0 See_Comment [Aut omated message] The = Basophils #) system which generated this result tra nsmitted reference range : <=0.2. The reference r sudhir was not used to int erpret this result as normal/abnormal . [facility] AustinMmsldyeKKOBATQLTL6121-57-70 08:05:00 Test Item Value Reference Range Interpretation Comments PT (test code = PT) 12.5 s 12.0-14.7 [facility] HospitalTxiluxmSKBIWIMUQR2426-90-20 08:05:00 Test Item Value Reference Range Interpretation Comments PTT (test code = PTT) 28.7 s 22.9-35.8 [facility] AustinLgkkxywPODMVUGYWE2984-44-26 08:05:00 Test Item Value Reference Range Interpretation Comments INR (test code = INR) 0.94 0.85-1.17 [facility] AustinQkqnfubLIIUMUUFBJ9727-11-74 08:05:00 Test Item Value Reference Range Interpretation Comments Platelet (test code = Platelet) 233 133-450 [facility] AustinStqjjwnGRZGKKIOSN3045-41-54 08:05:00 Test Item Value Reference Range Interpretation Comments MPV (test code = MPV) 7.9 7.4-10.4 [facility] AustinCfyvordKQKXJCHLEL5209-33-07 08:05:00 Test Item Value Reference Range Interpretation Comments RDW (test code = RDW) 13.6 11.5-14.5 [facility] AustinXevkkgnMOTYUQNPNZ5979-28-31 08:05:00 Test Item Value Reference Range Interpretation Comments Hct (test code = Hct) 38.8 36.0-48.0 [facility] HospitalBrfwiruIMNQMLMZUC2257-50-85 08:05:00 Test Item Value Reference Range Interpretation Comments MCV (test code = MCV) 93.7 80.0-98.0 [facility] HospitalSogqhuhECSPQRFJXB3872-36-02 08:05:00 Test Item Value Reference Range Interpretation Comments MCH (test code = MCH) 32.4 pg 27.0-31.0 [facility] HospitalXcppbntEPQLOUELKO9309-10-36 08:05:00 Test Item Value Reference Range Interpretation Comments MCHC (test code = MCHC) 34.6 32.0-36.0 [facility] AustinYqtwepeEPMUCQIVUE6951-03-97 08:05:00 Test Item Value Reference Range Interpretation Comments Hgb (test code = Hgb) 13.4 12.0-16.0 [facility] HospitalGuncrksHYQTMJHGWA4449-80-39 08:05:00 Test Item Value Reference Range Interpretation Comments WBC (test code = WBC) 5.5 3.7-10.4 [facility] HospitalCknrcdqBLHYFRBJUX2723-95-42 08:05:00 Test Item Value Reference Range Interpretation Comments RBC (test code = RBC) 4.14 4.20-5.40 [facility] CampusMleibidVHHXIN4254-52-94 08:05:00 Test Item Value Reference Range Interpretation Comments VLDL (test code = VLDL) 36 [facility]icsCkucsxyIWGBMC4714-22-83 08:05:00 Test Item Value Reference Range Interpretation Comments LDL (Calculated) (test code = LDL 85 (Calculated)) [facility] CenterLaarxthJYRXTL7876-88-77 08:05:00 Test Item Value Reference Range Interpretation Comments Chol (test code = Chol) 174 [facility] ClinicsNpvzangKUYCYQ3407-32-04 08:05:00 Test Item Value Reference Range Interpretation Comments Trig (test code = Trig) 182 [facility] CenterZdyszezSLLRXK0747-68-39 08:05:00 Test Item Value Reference Range Interpretation Comments HDL (test code = HDL) 53 [facility] CenterNpalzutUNUKRQ0024-79-47 08:05:00 Test Item Value Reference Range Interpretation Comments CHD Risk (test code = CHD Risk) 3.28 3.90-5.80 [facility] AND [id number] 06:25:00 Test Item Value Reference Range Interpretation Comments UA Bacteria (test code = None Seen (03/08/15 UA Bacteria) 1:25 AM) [facility] AND [id number] 06:25:00 Test Item Value Reference Range Interpretation Comments UA RBC (test code = 0-2 /HPF See_Comment [Automa lolita message] The UA RBC) system which ge nerated this result tra nsmitted reference range : <=2. The reference range was not used to interpr et this result as lauro l/abnormal. [facility] AND [id number] 06:25:00 Test Item Value Reference Range Interpretation Comments UA WBC (test code = UA None Seen (03/08/15 1:25 WBC) AM) [facility] AND [id number] 06:25:00 Test Item Value Reference Range Interpretation Comments UA Leuk Est (test Negative (03/08/15 1:25 code = UA Leuk Est) AM) [facility] AND [id number] 06:25:00 Test Item Value Reference Range Interpretation Comments UA Sq Epi (test code = UA Sq Epi) Rare /LPF [facility] AND [id number] 06:25:00 Test Item Value Reference Range Interpretation Comments UA Protein (test code Negative (03/08/15 1:25 = [facility]A Protein) AM) [facility] [id number] 06:25:00 Test Item Value Reference Range Interpretation Comments UA Ketones (test code Negative *NA*(03/08/15 = UA Ketones) 1:25 AM) [facility] [id number] 06:25:00 Test Item Value Reference Range Interpretation Comments UA Spec Grav (test code *NA*(03/08/15 1:25 AM) = UA Spec Grav) [facility] [id number] 06:25:00 Test Item Value Reference Range Interpretation Comments UA pH (test code = UA pH) 7.0 1 5.0-8.0 [facility] [id number] 06:25:00 Test Item Value Reference Range Interpretation Comments UA Glucose (test code Negative (03/08/15 1:25 = UA Glucose) AM) [facility] [id number] 06:25:00 Test Item Value Reference Range Interpretation Comments UA Urobilinogen (test code = UA 0.2 0.1-1.0 Urobilinogen) [facility] [id number] 06:25:00 Test Item Value Reference Range Interpretation Comments UA Blood (test code = Small *ABN*(03/08/15 UA Blood) 1:25 AM) [facility] [id number] 06:25:00 Test Item Value Reference Range Interpretation Comments UA Nitrite (test code Negative (03/08/15 1:25 = UA Nitrite) AM) [facility] [id number] 06:25:00 Test Item Value Reference Range Interpretation Comments UA Bili (test code = Negative *NA*(03/08/15 UA Bili) 1:25 AM) [facility] [id number] 06:25:00 Test Item Value Reference Range Interpretation Comments UA Turbidity (test code = Clear (03/08/15 1:25 UA Turbidity) AM) [facility] [id number] 06:25:00 Test Item Value Reference Range Interpretation Comments UA Color (test code = Yellow *NA*(03/08/15 UA Color) 1:25 AM) [facility] [id number] 04:03:00 Test Item Value Reference Range Interpretation Comments Troponin-I (test code no gt See_Comment [Auto mated message] The = Troponin-I) system which g enerated this result transmit lolita reference range : <=0.40. The reference r sudhir was not used to interpr et this result as lauro l/abnormal. [facility] [employer] [id number] 04:03:00 Test Item Value Reference Range Interpretation Comments CK MB (test code = CK MB) 3.4 0.5-3.6 [facility] [employer] [id number] 04:03:00 Test Item Value Reference Range Interpretation Comments Total CK (test code = Total CK) 212 12-191 [facility] [employer] [id number] 04:03:00 Test Item Value Reference Range Interpretation Comments BNP (test code = BNP) 8 [facility] [employer] [id number] 04:03:00 Test Item Value Reference Range Interpretation Comments CK MB Index (test 1.6 See_Comment [Automate d message] The code = CK MB Index) system w [facility] generated this result transmit lolita reference range : <=2.5. The reference range was not used to interpr et this result as lauro l/abnormal. [employer] [id number] 04:03:00 Test Item Value Reference Range Interpretation Comments eGFR (test code = eGFR) 67 [facility] [employer] [id number] 04:03:00 Test Item Value Reference Range Interpretation Comments AGAP (test code = AGAP) 14.1 10.0-20.0 [employer]2015-04-16 04:03:00 Test Item Value Reference Range Interpretation Comments Albumin Lvl (test code = Albumin Lvl) 4.2 3.5-5.0 [facility] [employer] [id number] 04:03:00 Test Item Value Reference Range Interpretation Comments Calcium Lvl (test code = Calcium Lvl) 9.7 8.5-10.5 [facility] [employer] [id number] 04:03:00 Test Item Value Reference Range Interpretation Comments Creatinine Lvl (test code = Creatinine 0.9 0.5-1.4 Lvl) [facility] [employer] [id number] 04:03:00 Test Item Value Reference Range Interpretation Comments CO2 (test code = CO2) 29 24-32 [facility]2015-04-16 04:03:00 Test Item Value Reference Range Interpretation Comments Chloride Lvl (test code = Chloride Lvl) 103 95-109 [facility]2015-04-16 04:03:00 Test Item Value Reference Range Interpretation Comments Potassium Lvl (test code = Potassium 3.1 3.5-5.1 Lvl) [facility]2015-04-16 04:03:00 Test Item Value Reference Range Interpretation Comments Sodium Lvl (test code = Sodium Lvl) 143 135-145 [facility]2015-04-16 04:03:00 Test Item Value Reference Range Interpretation Comments B/C Ratio (test code = B/C Ratio) 16 6-25 [facility]2015-04-16 04:03:00 Test Item Value Reference Range Interpretation Comments BUN (test code = BUN) 14 7-22 [facility]2015-04-16 04:03:00 Test Item Value Reference Range Interpretation Comments Glucose Lvl (test code = Glucose Lvl) 125 70-99 [facility]2015-04-16 04:03:00 Test Item Value Reference Range Interpretation Comments Total Protein (test code = Total 7.7 6.4-8.4 Protein) [facility]2015-04-16 04:03:00 Test Item Value Reference Range Interpretation Comments ALT (test code = ALT) 30 See_Comment [Auto mated message] The system which ge nerated this result transmit lolita reference range : <=65. The reference range was not used to interpr et this result as lauro l/abnormal. [facility]2015-04-16 04:03:00 Test Item Value Reference Range Interpretation Comments A/G Ratio (test code = A/G Ratio) 1.2 0.7-1.6 [facility]2015-04-16 04:03:00 Test Item Value Reference Range Interpretation Comments Globulin (test code = Globulin) 3.5 2.0-4.0 [facility]2015-04-16 04:03:00 Test Item Value Reference Range Interpretation Comments Bili Total (test code = Bili Total) 0.3 0.2-1.3 [facility]2015-04-16 04:03:00 Test Item Value Reference Range Interpretation Comments Alk Phos (test code = Alk Phos) 65 39-136 [facility] [id number] 04:03:00 Test Item Value Reference Range Interpretation Comments AST (test code = AST) 23 See_Comment [Auto mated message] The system which ge nerated this result transmit lolita reference range : <=37. The reference range was not used to interpr et this result as lauro l/abnormal. [facility] [id number] 04:03:00 Test Item Value Reference Range Interpretation Comments Lipase Lvl (test code = Lipase Lvl) 313 73-393 [facility]xcFEUIKZJVYR8992-03-20 04:03:00 Test Item Value Reference Range Interpretation Comments RDW (test code = RDW) 13.5 11.5-14.5 [facility]TkilteqXKRWEXEVJU2487-67-92 04:03:00 Test Item Value Reference Range Interpretation Comments MPV (test code = MPV) 8.3 7.4-10.4 [facility] AustinXnrzameIVFZDUJREU3929-26-06 04:03:00 Test Item Value Reference Range Interpretation Comments MCHC (test code = MCHC) 34.2 32.0-36.0 [facility] AustinKgaoxqxUCWFVEFQYL3362-62-02 04:03:00 Test Item Value Reference Range Interpretation Comments Platelet (test code = Platelet) 242 133-450 [facility] AustinCrkpbfbCSXXSGNZLY8631-18-35 04:03:00 Test Item Value Reference Range Interpretation Comments MCH (test code = MCH) 32.1 pg 27.0-31.0 [facility] AustinBufpzzdVQBDTYHJAH5393-18-11 04:03:00 Test Item Value Reference Range Interpretation Comments WBC (test code = WBC) 6.4 3.7-10.4 [facility] AustinTfyvyjqJVJRQSKFQA6986-05-47 04:03:00 Test Item Value Reference Range Interpretation Comments Hgb (test code = Hgb) 13.6 12.0-16.0 [facility] AustinYurfeqdSRVGYFVKCI2936-63-01 04:03:00 Test Item Value Reference Range Interpretation Comments Hct (test code = Hct) 40.0 36.0-48.0 [facility] AustinGwjmgugXRKABYRGCF6183-74-28 04:03:00 Test Item Value Reference Range Interpretation Comments RBC (test code = RBC) 4.26 4.20-5.40 [facility] AustinBiurvxhPEFQXKHERQ0645-65-71 04:03:00 Test Item Value Reference Range Interpretation Comments MCV (test code = MCV) 93.9 80.0-98.0 [facility] AustinNpjcnmaDKOKKTHESY2869-83-80 04:03:00 Test Item Value Reference Range Interpretation Comments PTT (test code = PTT) 28.5 s 22.9-35.8 [facility] AustinFsgwglzCRNGSGRQRS3245-80-91 04:03:00 Test Item Value Reference Range Interpretation Comments PT (test code = PT) 12.0 s 12.0-14.7 [facility] AustinTcejzumWEGEGTBVDK1958-46-98 04:03:00 Test Item Value Reference Range Interpretation Comments INR (test code = INR) 0.89 0.85-1.17 [facility] AustinPatujkdOATJKDZIEV8837-34-69 04:03:00 Test Item Value Reference Range Interpretation Comments Eosinophils # (test code 0.3 See_Comment [A utomated message] The = Eosinophils #) system whic h generated this result tra nsmitted reference range : <=0.5. The reference r sudhir was not used to int erpret this result as normal/abnormal . [facility] AustinFujnievOXSGOQMUQS4092-83-42 04:03:00 Test Item Value Reference Range Interpretation Comments Lymphocytes # (test code = Lymphocytes 2.0 1.0-5.5 #) [facility] AustinSvfoyyfLRQHODTVFU8789-30-21 04:03:00 Test Item Value Reference Range Interpretation Comments Monocytes # (test code 0.5 See_Comment [Aut omated message] The = Monocytes #) system which generated this result tra nsmitted reference range : <=0.8. The reference r sudhir was not used to int erpret this result as normal/abnormal . [facility] AustinLagmkhzTHULPHKXLK2318-67-05 04:03:00 Test Item Value Reference Range Interpretation Comments Basophils # (test code 0.0 See_Comment [Aut omated message] The = Basophils #) system which generated this result tra nsmitted reference range : <=0.2. The reference r sudhir was not used to int erpret this result as normal/abnormal . [facility] AustinIovgxehEZYLOPEYPW0776-40-43 04:03:00 Test Item Value Reference Range Interpretation Comments Basophils (test code = 0.7 See_Comment [Aut omated message] The Basophils) system which ge nerated this result tra nsmitted reference range : <=1.0. The reference r sudhir was not used to int erpret this result as normal/abnormal . [facility] AustinOoucqsqBYFSHIBTLD2683-58-60 04:03:00 Test Item Value Reference Range Interpretation Comments Eosinophils (test code = 4.2 See_Comment [A utomated message] The Eosinophils) system which ge nerated this result tra nsmitted reference range : <=4.0. The reference r sudhir was not used to int erpret this result as normal/abnormal . [facility] AustinSaynwhxFJJOPAGJMY6150-80-06 04:03:00 Test Item Value Reference Range Interpretation Comments Segs-Bands # (test code = Segs-Bands #) 3.6 1.5-8.1 [facility] AustinZpjvmkfHRANUKKNAB7464-20-54 04:03:00 Test Item Value Reference Range Interpretation Comments Monocytes (test code = Monocytes) 7.6 2.0-12.0 [facility] AustinAioxtroVMMVYAZEPU0694-36-54 04:03:00 Test Item Value Reference Range Interpretation Comments Lymphocytes (test code = Lymphocytes) 30.8 20.0-40.0 [facility] AustinBmhsbcvKRLMCIWRNO5665-42-60 04:03:00 Test Item Value Reference Range Interpretation Comments Segs (test code = Segs) 56.7 45.0-75.0 [facility]
[2023-01-03] MEDS ORDERED: ONDANSETRON 4 MG/2 ML VIAL ONE (11:00)
[2023-01-03] MEDS ORDERED: Ringers Lactate 1,000 ML IV ONE (11:00)
[2023-01-03 11:12] LABS: Absolute Lymphocytes (CBC) 0.9 K/uL (0.7-4.9); Hematocrit 41.5 % (36.0-45.0); Lymphocytes % 9.4 % (15.3-44.8); MCV 90.1 fL (80-100); MPV 8.3 fL (7.6-11.3); RBC Red Blood Cell Count 4.61 M/uL (3.86-4.86)
[2023-01-03 11:14] LABS: Protime INR 1.2
[2023-01-03 11:34] LABS: Albumin 3.3 g/dL (3.4-5.0); Potassium 3.1 mmol/L (3.5-5.1); Protein, Total 8.2 g/dL (6.4-8.2)
--- NOTE | 2023-01-03 12:08 | RAD REPORT ---
EXAM DESCRIPTION: CTAbdomen Pelvis W Contrast - 01/03/2023 11:57 am CLINICAL HISTORY: abdominal pain, diarrhea COMPARISON: No comparisons TECHNIQUE: CT of the abdomen and pelvis was performed. All CT scans are performed using dose optimization technique as appropriate and may include automated exposure control or mA/KV adjustment according to patient size. FINDINGS: Lower chest: Mild circumferential thickened distal esophagus may reflect esophagitis. Liver: No acute abnormality or suspicious lesions. Biliary: No biliary ductal dilatation. Stomach: No significant focal abnormality. Duodenum: No significant focal abnormality. Pancreas: No significant abnormality. Spleen: No significant abnormality. Adrenal: No suspicious lesions. Kidney/ureter: Patchy enhancement the right kidney. Right ureteral enhancement. Stripe left nephrogra m though to a lesser extent. Retroperitoneum: No retroperitoneal adenopathy. Vascular: No aneurysm. Atherosclerosis . Bowel: No significant focal abnormality. Peritoneum: No ascites or free air. Bladder: CT head bladder . Reproductive: No adnexal masses. Bones: No acute fracture. Disc height loss L5-S1 . Other: n/a IMPRESSION: Bilateral pyelonephritis. No abscess at this time. No hydronephrosis.
[2023-01-03 12:47] LABS: Urine Blood 2+ (Negative); Urine Glucose Negative (Negative); Urine Protein 3+ (Negative)
[2023-01-03] MEDS ORDERED: CEFTRIAXONE 2000 MG/VIAL ONE (12:51)
[2023-01-03] MEDS ORDERED: NA CHLORIDE 0.9% 100 ML ONE (12:56)
[2023-01-03 12:57] LABS: Urine Bacteria >50 /HPF (<20); Urine Mucus Slight /HPF (None Seen); Urine WBC Clump Moderate /HPF (None Seen)
--- NOTE | 2023-01-03 13:09 | ER ---
Nurse's Notes [facility] Name: Carol Tilley Age: 72 yrs Sex: Female : 1950 Arrival Date: 01/03/2023 Time: 10:08 Bed 5 Private MD: Diagnosis: Pyelonephritis acute Presentation: 01/03 10:19 Chief complaint: Patient states: Fever and headache that began 4 days ago. C/o back ss pain after falling from standing this morning. Coronavirus screen: Client presents with at least one sign or symptom that may indicate coronavirus-19. Ebola Screen: Patient denies exposure to infectious person. Patient denies travel to an Ebola-affected area in the 21 days before illness onset. Initial Sepsis Screen: Does the patient meet any 2 criteria? No. Patient's initial sepsis screen is negative. Does the patient have a suspected source of infection? No. Patient's initial sepsis screen is negative. Risk Assessment: Do you want to hurt yourself or someone else? Patient reports no desire to harm self or others. Onset of symptoms was December 30, 2022. 10:19 Method Of Arrival: Wheelchair ss 10:19 Acuity: GAURANG 3 ss Historical: - Allergies: 10:22 Codeine; nausea; ss - PMHx: 10:22 Hypertensive disorder; ss - Immunization history:: Client reports having NOT received the Covid vaccine. - Social history:: Smoking status: Patient denies any tobacco usage or history of. Screenin:00 [facility] ED Fall Risk Assessment (Adult) History of falling in the last 3 months, ko1 including since admission Yes- single mechanical fall (1 pt) Confusion or Disorientation No (0 pts) Intoxicated or Sedated No (0 pts) Impaired Gait Yes (1 pt) Mobility Assist Device Used No (0 pt) Altered Elimination No (0 pt) Score/Fall Risk Level 0 - 2 = Low Risk Oriented to surroundings, Maintained a safe environment, Educated pt \T\ family on fall prevention, incl call for assistance when getting out of bed, Assessed \T\ reinforced patient's understanding of fall precautions, Provided non-skid footwear, Hourly rounding (assess needs \T\ fall precautionary measures) done, Used ambulatory aids as needed (educated on \T\ assisted with), Used gait belt as appropriate. Abuse screen: Denies threats or abuse. Denies injuries from another. Nutritional screening: No deficits noted. Tuberculosis screening: No symptoms or risk factors identified. Assessment: 11:00 General: Appears in no apparent distress. uncomfortable, Behavior is calm, cooperative, ko1 appropriate for age. Pain: Denies pain. Neuro: No deficits noted. Cardiovascular: No deficits noted. Respiratory: No deficits noted. GI: Abdomen is non-distended. : No deficits noted. EENT: No deficits noted. Derm: No deficits noted. Musculoskeletal: No deficits noted. Vital Signs: 10:19 BP 111 / 65; Pulse 83; Resp 16; Temp 99.0(O); Pulse Ox 96% ; Weight 103.87 kg; Height 6 ss ft. 0 in. (182.88 cm); Pain 0/10; 10:25 BP 120 / 59; Pulse 71; Resp 18; Pulse Ox 99% ; ko1 10:45 BP 108 / 74; Pulse 73; Pulse Ox 99% ; ko1 11:00 BP 126 / 58; Pulse 70; Pulse Ox 98% ; ko1 11:15 BP 121 / 72; Pulse 74; Pulse Ox 98% ; ko1 11:33 BP 121 / 72; Pulse 80; Resp 16; Pulse Ox 99% on R/A; hb 12:30 BP 128 / 64; Pulse 67; Resp 16; Pulse Ox 99% ; ko1 10:19 Body Mass Index 31.06 (103.87 kg, 182.88 cm) ED Course: 10:08 Patient arrived in ED. rg4 10:11 Rnoak Allen PA is PHCP. [facility] 10:11 Asim Webster MD is Attending Physician. [facility] 10:22 Triage completed. ss 10:22 Arm band placed on right wrist. ss 10:31 Patient has correct armband on for positive identification. Bed in low position. Call mm9 light in reach. Side rails up X 1. Adult w/ patient. Warm blanket given. Pulse ox on. NIBP on. 10:33 Ángela Momin, JO ANN is Primary Nurse. ko1 11:00 Initial lab(s) drawn, by me, sent to lab. First set of blood cultures drawn by me. bc6 Inserted saline lock: 20 gauge in right antecubital area, using aseptic technique. 11:14 Lactate w/ 2H reflex if indic. Sent. bc6 11:14 PT-INR Sent. bc6 11:14 CMP Sent. bc6 11:14 Lipase Sent. bc6 11:58 CT Abd/Pelvis - IV Contrast Only In Process Unspecified. EDMS 12:45 Blood Culture Adult (2) Sent. ko1 12:46 Urine Culture Sent. ko1 12:46 Urine Microscopic Only Sent. ko1 13:12 No provider procedures requiring assistance completed. ko1 14:11 IV discontinued, intact, bleeding controlled, No redness/swelling at site. Pressure ko1 dressing applied. Administered Medications: 11:03 Drug: Zofran (Ondansetron) 4 mg Route: IVP; Site: right antecubital; ko1 11:03 Drug: Lactated Ringers Solution 1000 ml Route: IV; Rate: 1000 bolus; Site: left ko1 antecubital; 12:49 Drug: Rocephin (cefTRIAXone) 2 grams Route: IV; Rate: calculated rate; Site: right ko1 antecubital; Medication: 11:00 VIS not applicable for this client. ko1 Outcome: 13:09 Discharge ordered by . precious 14:11 Discharged to home via wheelchair, with family. ko1 14:11 Condition: stable 14:11 Discharge instructions given to patient, Instructed on discharge instructions, follow up and referral plans. medication usage, Demonstrated understanding of instructions, follow-up care, medications, Prescriptions given X 2. 14:12 Patient left the ED. ko1 Signatures: Dispatcher [employer] EDMS Ronak Allen PA PA jmm Smirch, Shelby, RN RN ss Baxter, Heather, RN RN hb Garcia, Rubi 4 Ángela Momin RN RN ko1 Martinez, Maria mm9 Orly Wakefield bc6
--- NOTE | 2023-01-03 13:09 | EDPHYS ---
Physician Documentation [facility] Name: Carol Tilley Age: 72 yrs Sex: Female : 1950 Arrival Date: 01/03/2023 Time: 10:08 Bed 5 Private MD: BLAYNE Physician Asim Webster HPI: 01/03 10:37 This 72 yrs old Female presents to ER via Wheelchair with complaints of Fever, Vomiting.jmm 10:37 Onset: The symptoms/episode began/occurred gradually, 5 day(s) ago. Modifying factors: jmm there are no obvious modifying factors. Associated signs and symptoms: Pertinent positives: diarrhea, nausea. The patient has not experienced similar symptoms in the past. Is a 72-year-old female with history of hypertension the presents emerged part with complaints of body aches, headache, diarrhea beginning approximately 4 days ago. Denies any vomiting but states having some nausea. Denies abdominal pain.. Historical: - Allergies: 10:22 Codeine; nausea; ss - PMHx: 10:22 Hypertensive disorder; ss - Immunization history:: Client reports having NOT received the Covid vaccine. - Social history:: Smoking status: Patient denies any tobacco usage or history of. ROS: 10:37 Constitutional: Positive for body aches, fever. jmm 10:37 Respiratory: Negative for cough, shortness of breath. 10:37 Abdomen/GI: Positive for nausea, diarrhea. 10:37 Neuro: Positive for headache. 10:37 All other systems are negative. Exam: 10:37 Constitutional: This is a well developed, well nourished patient who is awake, alert, jmm and in no acute distress. Head/Face: atraumatic. Eyes: EOMI, no conjunctival erythema appreciated ENT: Moist Mucus Membranes Neck: Trachea midline, Supple Chest/axilla: Normal chest wall appearance and motion. Cardiovascular: Regular rate and rhythm. No edema appreciated Respiratory: Normal respirations, no respiratory distress appreciated Abdomen/GI: Non distended Back: Normal ROM Skin: General appearance color normal MS/ Extremity: Moves all extremities, no obvious deformities appreciated, no edema noted to the lower extremities Neuro: Awake and alert Psych: Behavior is normal, Mood is normal, Patient is cooperative and pleasant Vital Signs: 10:19 BP 111 / 65; Pulse 83; Resp 16; Temp 99.0(O); Pulse Ox 96% ; Weight 103.87 kg; Height 6 ss ft. 0 in. (182.88 cm); Pain 0/10; 10:25 BP 120 / 59; Pulse 71; Resp 18; Pulse Ox 99% ; ko1 10:45 BP 108 / 74; Pulse 73; Pulse Ox 99% ; ko1 11:00 BP 126 / 58; Pulse 70; Pulse Ox 98% ; ko1 11:15 BP 121 / 72; Pulse 74; Pulse Ox 98% ; ko1 11:33 BP 121 / 72; Pulse 80; Resp 16; Pulse Ox 99% on R/A; hb 12:30 BP 128 / 64; Pulse 67; Resp 16; Pulse Ox 99% ; ko1 10:19 Body Mass Index 31.06 (103.87 kg, 182.88 cm) ss MDM: 10:37 Patient medically screened. [facility] 13:08 Data reviewed: vital signs, nurses notes. Consideration of Admission/Observation. I precious considered the following discharge prescriptions or medication management in the emergency department Medications were administered in the Emergency Department. See MAR. Counseling: I had a detailed discussion with the patient and/or guardian regarding: the historical points, exam findings, and any diagnostic results supporting the discharge/admit diagnosis, lab results, radiology results, the need for outpatient follow up, to return to the emergency department if symptoms worsen or persist or if there are any questions or concerns that arise at home. ED course: Patient is alert nontoxic in appearance in the ED. Lactate normal. I do not currently suspect sepsis. Patient is able to tolerate p.o. Patient will be trialed on outpatient oral antibiotics. Patient otherwise given strict return precautions. Patient understood agrees plan of care.. 01/03 10:41 Order name: CBC with Diff; Complete Time: 11:13 [facility] 01/03 10:41 Order name: CMP; Complete Time: 11:38 [facility] 01/03 10:41 Order name: Lipase; Complete Time: 11:38 [facility] 01/03 10:42 Order name: Lactate w/ 2H reflex if indic.; Complete Time: 11:38 [facility] 01/03 10:42 Order name: Blood Culture Adult (2) [facility] 01/03 10:42 Order name: PT-INR; Complete Time: 11:17 [facility] 01/03 10:41 Order name: CT Abd/Pelvis - IV Contrast Only; Complete Time: 12:08 [facility] 01/03 10:41 Order name: IV Saline Lock; Complete Time: 11:02 [facility] 01/03 12:09 Order name: Urine Microscopic Only; Complete Time: 13:05 [facility] 01/03 12:09 Order name: Urine Culture [facility] 01/03 12:48 Order name: Urine Dipstick-Ancillary; Complete Time: 12:50 [facility] 01/03 10:41 Order name: Labs collected and sent; Complete Time: 11:03 [facility] 01/03 10:41 Order name: Urine Dipstick-Ancillary (obtain specimen); Complete Time: 12:46 [facility] Administered Medications: 11:03 Drug: Zofran (Ondansetron) 4 mg Route: IVP; Site: right antecubital; ko1 11:03 Drug: Lactated Ringers Solution 1000 ml Route: IV; Rate: 1000 bolus; Site: left ko1 antecubital; 12:49 Drug: Rocephin (cefTRIAXone) 2 grams Route: IV; Rate: calculated rate; Site: right ko1 antecubital; Disposition Summary: 01/03/23 13:09 Discharge Ordered Location: Home [facility] Condition: Stable [facility] Diagnosis - Pyelonephritis acute [facility] Followup: [facility] - With: Private Physician - When: 2 - 3 days - Reason: Recheck today's complaints, Continuance of care, Re-evaluation by your physician Discharge Instructions: - Discharge Summary Sheet [facility] - Pyelonephritis, Adult [facility] Forms: - Medication Reconciliation Form [facility] - Thank You Letter [facility] - Antibiotic Education [facility] - Prescription Opioid Use [facility] Prescriptions: - cefpodoxime 200 mg Oral Tablet - take 2 tablets by ORAL route every 12 hours for 10 days with food; 20 tablet; [facility] Refills: 0, Product Selection Permitted - ondansetron 4 mg Oral tablet,disintegrating - place 1 tablet by TRANSLINGUAL route every 4 hours As needed; 20 tablet; [facility] Refills: 0, Product Selection Permitted Signatures: Dispatcher [employer] EDRonak Diego PA PA jmm Smirch, Shelby, RN RN ss Ángela Momin RN RN ko1
[2023-01-03 14:19] VITALS: TEMP 99
[2023-01-03 14:24] VITALS: O2SAT 99
[2023-01-03 14:26] VITALS: BP 128/64
== END 2023-01-03 14:12 | disposition home or self-care (01) ==
LOC: ER 10:05
DX: N10 Acute pyelonephritis (principal); I10 Essential (primary) hypertension; Z88.5 Allergy status to narcotic agent
CPT/HCPCS: 87040 ×2; 87088; 85025; 87086; 36415; 87205 ×4; 85610; 83605; 87077; 87186; 83690; 80053; 74177; 96375; 96374; 99284; Q9967; J7120; J2405; J0696; 81003; 81015

== ENCOUNTER 2023-01-08 16:59 | Inpatient (IN) | payer OTHER ==
[2023-01-08 17:22] LABS: SARS-CoV-2 Antigen Rapid Res Negative (Negative)
--- OUTSIDE RECORDS SUMMARY | 2023-01-08 18:14 | XMS REPORT | Continuity of Care Document ---
:1950 Author Organization [facility] t Address [address] Wynn [address] [place] [id number] Care Team Providers Name Role Phone SAHARA Attending Clinician Unavailable KAE Attending Clinician Unavailable Shane Dumont Attending Clinician [phone] Thompson Dozier Attending Clinician Yoan Gilliam Attending Clinician Davian Boyer Attending Clinician Jermaine Go Attending Clinician Venkata Lizarraga Attending Clinician SAHARA Admitting Clinician Unavailable KAE Admitting Clinician Unavailable Thompson Dozier Admitting Clinician Yoan Gilliam Admitting Clinician Venkata Lizarraga Admitting Clinician Payers Payer Name Policy Type Policy Number Effective Date Expiration Date S ourmeg MEDICARE [place]: [id number] 2014 [employer] 00:00:00 [place] [id number] 2018 [employer] 00:00:00 (MEDICARE SUPPLEMENT) CGS (MEDICARE DME [id number] 2014 [place] C) 00:00:00 Tremor Video [id number] 2018 INSURANCE COMPANY 00:00:00 (MEDICARE SUPPLEMENT) Problems Condition [...] Problem Active Janny right knee Right Knee 5- Or thope joint Joint 00:00: dic 00 [...] NEW PT/ NEW PT/ Diagnosis Active 2016-112017-11-03 Memfanny ABNORMAL ABNORMAL 2- 15:20:00 l IMAGING OF IMAGING OF 00:00: He kareem HEART AND HEART AND 00 CO CO Active 11/02/2017 [facility] Z12.31 - Z12.31 - Diagnosis Active 2017-08-14 Memfanny ENCNTR ENCNTR 905 14:12:00 l SCREEN SCREEN 00:01: [place] MAMMOGRAM MAMMOGRAM 00 FOR MA FOR MA Active 07/28/2017 NIKHIL Vergara CP CP Active Diagnosis Active 2015-03-09 Memoria 03/07/2015 4-15 14:29:00 l NIKHIL Vergara 00:00: [facility] 00 Essential Problem 2018-03-09 Me moria (primary) Essential 19:31:08 l hypertensi (primary) Her hopson on hypertensi on 03/09/2018 [facility] Hyperlipid Hyperlipi Problem 2018-03-09 Memoria emtolbertia, 19:31:08 l unspecifie unspecifie He kareem d d 03/09/2018 [facility] Mass of Mass of Problem Resolve 2018-03-09 M emoria colon colon d 19:31:08 l (finding) (finding) Herm srinivasan Resolved Problem 03/09/2018 [facility], MK Vergara,[facility] Hypertensi Hypertens Problem Active 2018-03-09 Memoria ve nedra 19:31:08 l disorder, disorder, Herm srinivasan systemic systemic arterial arterial (disorder) (disorder) Active Problem 03/09/2018 [facility] Hyperchole Hyperchol Problem Active 2018-03-09 Memoria sterolemia esterolemi 19:31:08 l (disorder) a Josiah n (disorder) Active Problem 03/09/2018 [facility] ENCNTR FOR ENCNTR Diagnosis Active 2017-11-03 Memoria GENERAL FOR 15:20:00 l ADULT GENERAL [place] MEDICAL ADULT EXAM W/ MEDICAL EXAM W/ Active [facility] Encounter Encounter Problem 2017-08-10 Memoria for for 00:58:37 l screening screening [facility] mammogram mammogram for for malignant malignant neoplasm neoplasm of breast of breast 08/10/2017 MK Vergara History of Past Illness Condition Condition Condition Status Onset Resolution Last Treating Co mments Source Name Details Category Date Date Treatment Clinician Date Other Other Problem 2017-2018-03-09 2018-03-09 M emoria chest pain chest pain 1-13 19:31:08 19:31:08 l 12/05/2017 05:19: Josiah n 13 8 [facility] Allergies, Adverse Reactions, Alerts Allergy Allergy Status Severity Reaction(s) Onset Inactive Treating Comm ents Source Name Type Date Date Clinician Codeine Allergy Active Janny to Orthope substanc dic e Sports Medicin e Social History Social Habit Start Date Stop Date Quantity Comments Source Social History 2015-03-08 2015-03-08 [facility] neftali 07:43:26 07:43:26 Medications Ordered Filled Start Stop Current Ordering Indication Dosage Frequency Signature Comments Components Source Medication Medication Date Date Medication? Clinician (SIG) Name Name Protonix No 20 mg, Memoria 1-10 Route: PO, l 22:30: Drug form: [place] ECTAB, Before Dinner, Dosing Weight 86.364, kg, Start date: 12/02/17 16:30:00 HVAC SERVICE MANAGER, Duration: 30 day, Stop date: 12/31/17 16:30:00 HVAC SERVICE MANAGER Protonix 2017- No 20 mg, Memoria 1-10 Route: PO, l 22:30: Drug form: [place] 00 ECTAB, Before Dinner, Dosing Weight 86.364, kg, Start date: 12/02/17 16:30:00 HVAC SERVICE MANAGER, Duration: 30 day, Stop date: 12/31/17 16:30:00 HVAC SERVICE MANAGER Miralax 2017- No Notes: Memoria 1-10 Dissolve l 15:00: in 8 oz of [place] 00 water or juice. (Same as: Miralax) Losartan No Notes: Memoria 1-10 (Same as: l 15:00: Cozaar) Hydrochloro No Notes: Mohsen kalin thiazide 25 1-10 (Same as: l MG Oral 15:00: Hydrodiuri Herm srinivasan Tablet 00 l) With food. Miralax No Notes: Memoria 1-10 Dissolve l 15:00: in 8 oz of [place] 00 water or juice. (Same as: Miralax) Losartan No Notes: Memoria 1-10 (Same as: l 15:00: Cozaar) Hydrochloro No Notes: Mohsen kalin thiazide 25 1-10 (Same as: l MG Oral 15:00: Hydrodiuri Herm srinivasan Tablet 00 l) With food. rosuvastati No Notes: Mohsen kalin n 1-10 (Same As: l 03:00: Crestor) rosuvastati No Notes: Mohsen kalin n 1-10 (Same As: l 03:00: Crestor) pantoprazol Yes 20 mg = 1 M emoria e 20 MG 1-10 tab, PO, l Enteric 00:12: Before [place] Coated 00 Dinner, # Tablet 30 tab, 0 [Protonix] Refill(s) pantoprazol Yes 20 mg = 1 M emoria e 20 MG 1-10 tab, PO, l Enteric 00:12: Before [place] Coated 00 Dinner, # Tablet 30 tab, 0 [Protonix] Refill(s) oxybutynin No Notes: Memor ia 12-01 Same as: l 23:00: Ditropan) oxybutynin No Notes: Memor ia 12-01 Same as: l 23:00: Ditropan) Aspirin 325 Yes 325 mg = 1 Memoria MG Oral 12-01 tab, PO, l Tablet 21:52: Bedtime, # Madelyn nn 00 30 tab, 0 Refill(s) Vitamin E Yes 400 Memoria 12-01 IntlUnit, l 21:52: PO, BID, 0 [place] 00 Refill(s) rosuvastati No 20 mg = 1 M emoria n 20 mg 12-01 tab, PO, l oral tablet 21:52: Bedtime, 0 [place] 00 Refill(s) Aspirin 325 Yes 325 mg = 1 Memoria MG Oral 12-01 tab, PO, l Tablet 21:52: Bedtime, # Madelyn nn 00 30 tab, 0 Refill(s) Vitamin E Yes 400 Memoria 12-01 IntlUnit, l 21:52: PO, BID, 0 [place] 00 Refill(s) rosuvastati No 20 mg = 1 M emoria n 20 mg 12-01 tab, PO, l oral tablet 21:52: Bedtime, 0 [place] 00 Refill(s) Nitroglycer No Notes: Mohsen kalin in 0.4 MG 12-01 (Same l Sublingual 20:05: as:Nitroqu H ermann Tablet 00 ick, Nitrostat) "Do Not Crush" Sublingual tablet Nitroglycer No Notes: Mohsen kalin in 0.4 MG 12-01 (Same l Sublingual 20:05: as:Nitroqu H ermann Tablet 00 ick, Nitrostat) "Do Not Crush" Sublingual tablet Miralax Yes 17 gm, PO, Mohsen kalin 12-01 Daily l 17:36: Miralax Yes 17 gm, PO, Mohsen kalin 12-01 Daily l 17:36: oxybutynin Yes 5 mg = 1 Mem oria 5 mg oral 12-01 tab, PO, l tablet 17:35: BID oxybutynin Yes 5 mg = 1 Mem oria 5 mg oral 09 tab, PO, l tablet 17:35: BID [place] 00 BD Normal No Notes: Memori a Saline 12-01 (Same as: l Flush 13:00: BD [place] 00 Posiflush) BD Normal No Notes: Memori a Saline 12-01 (Same as: l Flush 13:00: BD [place] 00 Posiflush) Nitroglycer No Notes: (20 Memoria in 0.02 1-09 mg NTG per l MG/MG 12:42: gram) [place] Topical (Same Ointment as:Nitro-B id) Saline No Notes: Memoria Flush 0.9% 12-01 (Same as: l 12:42: BD [place] Posiflush) Nitroglycer No Notes: (20 Memoria in 0.02 1-09 mg NTG per l MG/MG 12:42: gram) [place] Topical (Same Ointment as:Nitro-B id) Saline No Notes: Memoria Flush 0.9% 12-01 (Same as: l 12:42: BD [place] Posiflush) rosuvastati 2016-11 Yes 20 mg = 1 M emoria n 20 mg 2-12 tab, PO, l oral tablet 20:49: Bedtime, # [place] 00 90 tab, 3 Refill(s), Pharmacy: [facility] [id number] rosuvastati 2016-11 Yes 20 mg = 1 M emoria n 20 mg 2-12 tab, PO, l oral tablet 20:49: Bedtime, # [place] 00 90 tab, 3 Refill(s), Pharmacy: [facility] [id number] Vitamin E 2016-11 Yes PO, Daily, Me moria 2-12 0 l 17:31: Refill(s) [place] 00 Vitamin D3 2016-11 Yes 0 Memoria 2-12 Refill(s) l 17:31: [place] 00 oxybutynin 2016-11 Yes 10 mg = 1 Me moria 10 mg oral 2-12 tab, PO, l tablet, 17:31: Daily, 0 Josiah n extended 00 Refill(s) release Vitamin E 2016-11 Yes PO, Daily, Me moria 2-12 0 l 17:31: Refill(s) [place] Vitamin D3 2016-11 Yes 0 Memoria 2-12 Refill(s) l 17:31: [place] 00 oxybutynin 2016-11 Yes 10 mg = 1 Me moria 10 mg oral 2-12 tab, PO, l tablet, 17:31: Daily, 0 Josiah n extended 00 Refill(s) release Enoxaparin No Notes: Memor ia 4-16 (Same as: l 15:00: Lovenox) Enoxaparin No Notes: Memor ia 4-16 (Same as: l 15:00: Lovenox) Potassium No Notes: Memori a Chloride 20 4-16 (Same as: l MEQ 14:18: K-Dur 20) [place] Extended "Do Not Release Crush" Tablet With food and full glass of water Potassium No Notes: Memori a Chloride 20 4-16 (Same as: l MEQ 14:18: K-Dur 20) [place] Extended "Do Not Release Crush" Tablet With food and full glass of water Saline No Notes: Memoria Flush 0.9% 4-16 (Same as: l 14:00: BD Posiflush) Saline No Notes: Memoria Flush 0.9% 4-16 (Same as: l 14:00: BD [place] 00 Posiflush) Famotidine Yes 1 tab, PO, M emoria 26.6 MG / 4-16 TID, 0 l Ibuprofen 07:23: Refill(s) Her hopson 800 MG Oral 00 Tablet [Duexis] losartan Yes 100 mg = 1 Mem oria 100 mg oral 4-16 tab, PO, l tablet 07:23: Daily, 0 [place] 00 Refill(s) pravastatin Yes 40 mg = 1 M emoria 40 mg oral 4-16 tab, PO, l tablet 07:23: Bedtime, 0 Madelyn nn 00 Refill(s) Hydrochloro Yes 25 mg = 1 M emoria thiazide 25 4-16 tab, PO, l MG Oral 07:23: Daily, 0 Josiah n Tablet 00 Refill(s) Famotidine Yes 1 tab, PO, M emoria [...] mg = 1 M emoria thiazide 25 4-16 tab, PO, l MG Oral 07:23: Daily, 0 Josiah n Tablet 00 Refill(s) Saline No Notes: Memoria Flush 0.9% 03-08 (Same as: l 07:02: BD [place] 00 Posiflush) Acetaminoph No Notes: Do M emoria en 03-08 not exceed l 07:02: 4 gm/day. [place] 00 (Same as: Tylenol) Morphine No Notes: Memoria -16 (Same l 07:02: as:MORPhin [place] 00 e Sulfate) Nitroglycer No Notes: Mohsen kalin in 03-08 (Same l 07:02: as:Nitroqu [place] 00 ick, Nitrostat) "Do Not Crush" Sublingual tablet Ondansetron No Notes: Mohsen kalin 16 (Same as: l 07:02: Zofran) [place] 00 Saline No Notes: Memoria Flush 0.9% 03-08 (Same as: l 07:02: BD [place] 00 Posiflush) Acetaminoph No Notes: Do M emoria en 16 not exceed l 07:02: 4 gm/day. [place] 00 (Same as: Tylenol) Morphine No Notes: Memoria 4-16 (Same l 07:02: as:MORPhin [place] 00 e Sulfate) Nitroglycer No Notes: Mohsen kalin in 16 (Same l 07:02: as:Nitroqu [place] 00 ick, Nitrostat) "Do Not Crush" Sublingual tablet Ondansetron No Notes: Mohsen kalin 4-16 (Same as: l 07:02: Zofran) Tramadol No 50 kg, Memori a 4-16 Priority: l 05:18: STAT, Start date: 03/08/15 0:18:00, Stop date: 03/08/15 0:18:00 Tramadol No 50 kg, Memori a 4-16 Priority: l 05:18: STAT, Start date: 03/08/15 0:18:00, Stop date: 03/08/15 0:18:00 Sodium No IV, 0 Memoria Chloride 4-16 ml/hr, l 0.9% IV 03:55: PRN, PRN Josiah n 00 Line Flush, Start date: 03/07/15 22:55:00, Duration: 30, 25 ml Sodium No IV, 0 Memoria Chloride 4-16 ml/hr, l 0.9% IV 03:55: PRN, PRN Josiah n 00 Line Flush, Start date: 03/07/15 22:55:00, Duration: 30, 25 ml Saline No Notes: Memoria Flush 0.9% 4-16 (Same as: l 03:53: BD [place] 00 Posiflush) Aspirin No Notes: Memoria 4-16 Take with l 03:53: food. Saline No Notes: Memoria Flush 0.9% 4-16 (Same as: l 03:53: BD Posiflush) Aspirin No Notes: Memoria 4-16 Take with l 03:53: food. influenza 2006-11 No Anais L 0.5 ml, M emoria virus 2-14 [place] Route: IM, l vaccine, 15:00: Drug Form: Her hopson inactivated 00 INJ, ONCE, Start date: 11/05/07 9:00:00, Stop date: 11/05/07 9:00:00LOT #: ___ Mfg: (Same as: Fluzone) influenza 2006-11 No Anais L 0.5 ml, M emoria virus 2-14 [place] Route: IM, l vaccine, 15:00: Drug Form: Her hopson inactivated 00 INJ, ONCE, Start date: 11/05/07 9:00:00, Stop date: 11/05/07 9:00:00LOT #: ___ Mfg: (Same as: Fluzone) vitamin vitamin No vitamin Janny C-vitamin C-vitamin C-vitamin Orthope T95-lypk N90-edtc I65-wtze dic Sports Medicin e Vitamin D3 Vitamin D3 No Vitamin D3 Janny Orthope dic Sports Medicin e vitamin E vitamin E No vitamin E Janny Orthope dic Sports Medicin e acetaminoph acetaminoph No acetaminop Janny en 300 [...] HOURS 12 HOURS MOUTH EVERY 12 HOURS Immunizations Ordered Immunization Filled Immunization Date Status [...] Systolic (mm Hg) 2017-12-02 02:27:00 Mohsen rial [place] Diastolic (mm Hg) 2017-12-02 02:27:00 Mem orial [place] Respitory Rate 2017-12-02 02:27:00 Memori al [place] Heart Rate 2017-12-02 02:27:00 [facility] [place] Temperature Oral (F) 2017-12-02 02:27:00 97.9 F [facility] [place] Systolic (mm Hg) 2017-12-01 21:19:00 Mohsen rial [place] Diastolic (mm Hg) 2017-12-01 21:19:00 Mem orial [place] Respitory Rate 2017-12-01 21:19:00 Memori al [place] Temperature Oral (F) 2017-12-01 21:19:00 98.1 F [facility] [place] Heart Rate 2017-12-01 21:19:00 [facility] [place] Systolic (mm Hg) 2017-12-01 20:22:00 Mohsen rial [place] Diastolic (mm Hg) 2017-12-01 20:22:00 Mem orial [place] Temperature Oral (F) 2017-12-01 20:22:00 98.0 F [facility] [place] Respitory Rate 2017-12-01 20:22:00 Memori al [place] Heart Rate 2017-12-01 16:19:00 [facility] [place] Weight 2017-12-01 11:21:00 [facility] [place] BMI Calculated 2017-12-01 11:21:00 Memori al [place] Height 2017-12-01 11:21:00 182.88 cm [facility] [place] Height 2017-11-03 20:33:00 182.88 cm [facility] [place] Weight 2017-11-03 20:33:00 [facility] [place] BMI Calculated 2017-11-03 20:33:00 Memori al [place] Temperature Oral (F) 2017-11-03 20:33:00 98.6 F [facility] [place] Respitory Rate 2017-11-03 20:33:00 Memori al [place] Systolic (mm Hg) 2017-11-03 20:33:00 Mohsen rial [place] Diastolic (mm Hg) 2017-11-03 20:33:00 Mem orial [place] Heart Rate 2017-11-03 20:33:00 [facility] [place] Respitory Rate 2015-03-08 17:00:00 Memori al [place] Heart Rate 2015-03-08 17:00:00 [facility] [place] Diastolic (mm Hg) 2015-03-08 17:00:00 Mem orial [place] Systolic (mm Hg) 2015-03-08 17:00:00 Mohsen rial [place] Diastolic (mm Hg) 2015-03-08 13:11:00 Mem orial [place] Systolic (mm Hg) 2015-03-08 13:11:00 Mohsen rial [place] Respitory Rate 2015-03-08 13:11:00 Memori al [place] Heart Rate 2015-03-08 13:11:00 [facility] [place] Heart Rate 2015-03-08 09:37:00 [facility] [place] Temperature Oral (F) 2015-03-08 09:37:00 97.4 F [facility] [place] Systolic (mm Hg) 2015-03-08 09:37:00 Mohsen de jesus [place] Diastolic (mm Hg) 2015-03-08 09:37:00 Mem orial [place] Respitory Rate 2015-03-08 09:37:00 Esther bermudez [place] Weight 2015-03-08 07:29:00 [facility] [place] BMI Calculated 2015-03-08 07:29:00 Esther al [place] Height 2015-03-08 07:29:00 180.34 cm [facility] [place] Temperature Oral (F) 2015-03-08 07:18:00 97.3 F [facility] [place] Temperature Oral (F) 2015-03-08 06:15:00 98.3 F [facility] [place] Weight 2015-03-08 03:34:00 [facility] [place] BMI Calculated 2015-03-08 03:34:00 Esther al [place] Height 2015-03-08 03:34:00 182.88 cm [facility] Procedures Procedure Date / Time Performing Clinician [...] opedic Sports Medicine Foot repair 2014-12-01 06:00:[address] [facility] hopson Removal of Bone 2013-11-23 00:00:00 Janny Ortho pedic Fragments Sports Medicine Colostomy 1997-12-01 06:00:[address] [facility] hopson Revision of Colostomy 1997-11-23 00:00:00 Janny Orthopedic Sports Medicine Sigmoid Colectomy 1997-11-23 00:00:00 Janny Howard hopedic Sports Medicine Hysterectomy 1984-12-01 06:00:00 [facility] Hysterectomy 1984-11-23 00:00:00 Janny Ortho pedic Sports Medicine Excision of Janny Orthopedi c Intra-abdominal Mass Sports Medi cine Encounters Start End Encounter Admission Attending Care Care Encounter Source Date/Time Date/Time Type Type Clinicians Facility Department ID 2022-06-03 2022-06-03 Outpatient ZAZ_GOODFRI AOSM AOSM [id number] Janny 10:25:00 10:25:00 ED_MILVIA [id number] Orth ope dic Sports Medicin e 2022-06-03 2022-06-03 Outpatient ZAZ_GOODFRI AOSM AOSM [id number] Janny 00:00:00 00:00:00 ED_MILVIA [id number] Orth ope dic Sports Medicin e 2022-06-02 2022-06-02 Outpatient OLS_GOODFRI AOSM AOSM [id number] Janny 12:19:00 12:19:00 ED_DENISSE [id number] Orthop e dic Sports Medicin e 2022-05-15 2022-05-15 Outpatient ZAZ_GOODFRI AOSM AOSM [id number] Janny 02:43:00 02:43:00 ED_MILVIA [id number] Orth ope dic Sports Medicin e 2022-05-15 2022-05-15 Outpatient OLS_GOODFRI AOSM AOSM [id number] Janny 02:43:00 02:43:00 ED_DENISSE [id number] Orthop e dic Sports Medicin e 2022-05-15 2022-05-15 Outpatient ZAZ_GOODFRI AOSM AOSM [id number] Janny 02:43:00 02:43:00 EDSUDHA [id number] Orth ope dic Sports Medicin e 2022-05-09 2022-05-09 Outpatient OLS_GOODFRI AOSM AOSM [id number] Janny 09:31:00 09:31:00 EDMARKO [id number] Orthop e dic Sports Medicin e 2022-05-09 2022-05-09 Outpatient AMINAH Dumont AOSM [id number] 00:00:00 00:00:00 Shane Lugo [id number] 2022-05-09 2022-05-09 Shane Lugo AOSM [place] - Ortho [id number] Janny 00:00:00 00:00:00 Radha Dumont MD: 708 E OLS [place]_Of[facility] dic [place] [facility] e [id number] , Ph. 2022-04-04 2022-04-04 Outpatient ZAZ_SCARLETI AOSM AOSM [id number] Janny 11:26:00 11:26:00 ED_MILVIA [id number] Orth ope dic Sports Medicin e 2022-04-04 2022-04-04 Outpatient ZAZ_GOODFRI AOSM AOSM [id number] Janny 11:26:00 11:26:00 ED_MILVIA [id number] Orth ope dic Sports Medicin e 2017-12-01 2017-12-02 Observatio nullFlavo [facility] [id number] Memoria 11:09:00 03:15:00 n samuel Pinto 05 [facility] 2017-12-01 2017-12-02 Observatio nullFlavo [facility] [id number] Memoria 11:09:00 03:15:00 kelly Pinto 05 [facility] 2017-12-01 2017-12-01 Outpatient Jacoby, 9 MH9 [id number] 05:09:00 21:15:00 Fakhri H 05 2017-12-01 2017-12-01 Outpatient Jacoby, 9 9 [id number] 05:09:00 21:15:00 Fakhri H 05 2017-11-11 2017-11-12 Outpatient nullFlavo [facility] [id number] Memoria 12:58:00 05:59:00 samuel Pinto [address] [place] [address] 2017-11-11 2017-11-12 Outpatient nullFlavo [facility] [id number] Memoria 12:58:00 05:59:00 samuel Pinto [address] [place] [address] 2017-11-11 2017-11-11 Outpatient Yoan Gilliam 9 MH9 [id number] 06:58:00 23:59:00 Amrita 2017-11-03 2017-11-04 Outpatient nullFlavo [id number] Memoria 20:17:00 05:59:[address] 2017-11-03 2017-11-04 Outpatient nullFlavo [id number] Memoria 20:17:00 05:59:00 r Community 01 l Cardiology Madelyn Vergara 2017-11-03 2017-11-03 Outpatient Yoan Gilliam [facility] [id number] 14:17:00 23:59:00 Ahmed 01 2017-09-30 2017-10-01 Outpt Diag nullFlavo [facility] [id number] Memoria 15:46:00 05:59:00 Services r Outpatient 04 l Imaging [place] Vergara 2017-09-30 2017-10-01 Outpt Diag nullFlavo [facility] [id number] Memoria 15:46:00 05:59:00 Services r Outpatient 04 l Imaging [place] Vergara 2017-09-30 2017-09-30 Outpatient Merlin [id number] 09:46:00 23:59:00 Daviannedra Hyman 04 2017-08-07 2017-08-08 Outpt Diag nullFlavo [facility] [id number] Memoria 20:10:00 04:59:00 Services r Outpatient 03 l Imaging [place] Vergara 2017-08-07 2017-08-08 Outpt Diag nullFlavo [facility] [id number] Memoria 20:10:00 04:59:00 Services r Outpatient 03 l Imaging [place] Vergara 2017-08-07 2017-08-07 Outpatient Donavan [id number] 15:10:00 23:59:00 Jermaine H 03 2015-03-08 2015-03-08 OBS nullFlavo [facility] [id number] Memoria 03:28:00 22:30:00 Observatio r [place] 00 l n Patient Ursula Rahman [facility] 2015-03-08 2015-03-08 OBS nullFlavo [facility] [id number] Memoria 03:28:00 22:30:00 Observatio r [place] 00 l n Patient Ursula Rahman [facility] 2015-03-07 2015-03-08 Outpatient Elham Venkata [id number]. [id number] 22:28:00 17:30:00 Ali [id number] [id number] 2013-12-09 Outpatient [id number]. [id number] [facility] 14:10:00 23:59:00 [id number] Outpati [id number] 5.0.101 ent 01 Imaging [...] interpr et this result as normal/abnormal . [facility] [id number] 02:04:00 Test Item Value Reference Range Interpretation Comments Troponin-I (test code no gt See_Comment [Auto mated message] The = Troponin-I) system which g enerated this result transmit lolita reference range : <=0.40. The reference r sudhir was not used to interpr et this result as lauro l/abnormal. [facility] [id number] 20:17:00 Test Item Value Reference Range Interpretation Comments Troponin-I (test code no gt See_Comment [Auto mated message] The = Troponin-I) system which g enerated this result transmit lolita reference range : <=0.40. The reference r sudhir was not used to interpr et this result as lauro l/abnormal. [facility] [id number] 20:17:00 Test Item Value Reference Range Interpretation Comments Troponin-I (test code no gt See_Comment [Auto mated message] The = Troponin-I) system which g enerated this result transmit lolita reference range : <=0.40. The reference r sudhir was not used to interpr et this result as lauro l/abnormal. [id number] 14:09:00 Test Item Value Reference Range Interpretation Comments MPV (test code = MPV) 7.4 7.4-10.4 [id number] 14:09:00 Test Item Value Reference Range Interpretation Comments MCH (test code = MCH) 31.2 pg 27.0-31.0 [facility] [id number] 14:09:00 Test Item Value Reference Range Interpretation Comments MCV (test code = MCV) 89.3 80.0-98.0 [facility] [id number] 14:09:00 Test Item Value Reference Range Interpretation Comments WBC (test code = WBC) 5.3 3.7-10.4 [facility] [id number] 14:09:00 Test Item Value Reference Range Interpretation Comments RBC (test code = RBC) 4.39 4.20-5.40 [facility] [id number] 14:09:00 Test Item Value Reference Range Interpretation Comments Hgb (test code = Hgb) 13.7 12.0-16.0 [facility] [id number] 14:09:00 Test Item Value Reference Range Interpretation Comments Hct (test code = Hct) 39.2 36.0-48.0 [facility] [id number] 14:09:00 Test Item Value Reference Range Interpretation Comments Eosinophils (test code = 3.5 See_Comment [A utomated message] The Eosinophils) system which ge nerated this result tra nsmitted reference range : <=4.0. The reference r sudhir was not used to int erpret this result as normal/abnormal . [facility] [id number] 14:09:00 Test Item Value Reference Range Interpretation Comments Segs-Bands # (test code = Segs-Bands #) 3.3 1.5-8.1 [facility] [id number] 14:09:00 Test Item Value Reference Range Interpretation Comments Lymphocytes # (test code = Lymphocytes 1.3 1.0-5.5 #) [facility] [id number] 14:09:00 Test Item Value Reference Range Interpretation Comments Basophils (test code = 1.2 See_Comment [Aut omated message] The Basophils) system which ge nerated this result tra nsmitted reference range : <=1.0. The reference r sudhir was not used to int erpret this result as normal/abnormal . [facility] [id number] 14:09:00 Test Item Value Reference Range Interpretation Comments Lymphocytes (test code = Lymphocytes) 23.7 20.0-40.0 [place] [id number] 14:09:00 Test Item Value Reference Range Interpretation Comments Monocytes (test code = Monocytes) 9.5 2.0-12.0 [facility] [place]HekjrktSQLTKJASPS8118-56-97 14:09:00 Test Item Value Reference Range Interpretation Comments Monocytes # (test code 0.5 See_Comment [Aut omated message] The = Monocytes #) system which generated this result tra nsmitted reference range : <=0.8. The reference r sudhir was not used to int erpret this result as normal/abnormal . [facility] HoustonJslsupaHDKGRZLERH5837-47-53 14:09:00 Test Item Value Reference Range Interpretation Comments Lymphocytes (test code = Lymphocytes) 23.7 20.0-40.0 [facility] HoustonSnjviflKBXBJUANSP0619-99-49 14:09:00 Test Item Value Reference Range Interpretation Comments Monocytes (test code = Monocytes) 9.5 2.0-12.0 [facility] HoustonMtriqtjKBBNMZTKBE0734-54-75 14:09:00 Test Item Value Reference Range Interpretation Comments Monocytes # (test code 0.5 See_Comment [Aut omated message] The = Monocytes #) system which generated this result tra nsmitted reference range : <=0.8. The reference r sudhir was not used to int erpret this result as normal/abnormal . [facility] HoustonLiglwtvDGSQDMJKDY6000-38-53 14:09:00 Test Item Value Reference Range Interpretation Comments Basophils # (test code 0.1 See_Comment [Aut omated message] The = Basophils #) system which generated this result tra nsmitted reference range : <=0.2. The reference r sudhir was not used to int erpret this result as normal/abnormal . [facility] HoustonMzwcqndLDRPJGGWQU0262-40-11 14:09:00 Test Item Value Reference Range Interpretation Comments Eosinophils # (test code 0.2 See_Comment [A utomated message] The = Eosinophils #) system whic h generated this result tra nsmitted reference range : <=0.5. The reference r sudhir was not used to int erpret this result as normal/abnormal . [facility] HoustonDfchqnvFYLFBPDNXU3111-83-59 14:09:00 Test Item Value Reference Range Interpretation Comments Segs (test code = Segs) 62.1 45.0-75.0 [facility]2018-01-09 14:09:00 Test Item Value Reference Range Interpretation Comments Total CK (test code = Total CK) 141 12-191 [facility] [id number] 14:09:00 Test Item Value Reference Range Interpretation Comments CK MB (test code = CK MB) 3.9 0.5-3.6 [facility]CAR[facility]phasonicsAC [id number] 14:09:00 Test Item Value Reference Range Interpretation Comments Troponin-I (test code no gt See_Comment [Auto mated message] The = Troponin-I) system which g enerated this result transmit lolita reference range : <=0.40. The reference r sudhir was not used to interpr et this result as lauro l/abnormal. [facility] [id number] 14:09:00 Test Item Value Reference Range Interpretation Comments CK MB Index (test 2.8 1 See_Comment [Automate d message] The code = CK MB Index) system w [facility] generated this result transmit lolita reference range : <=2.5. The reference range was not used to interpr et this result as lauro l/abnormal. [facility] [id number] 14:09:00 Test Item Value Reference Range Interpretation Comments eGFR (test code = eGFR) 88 [facility] [employer]2018-01-09 14:09:00 Test Item Value Reference Range Interpretation Comments A/G Ratio (test code = A/G Ratio) 1.2 1 0.7-1.6 [facility] [id number] 14:09:00 Test Item Value Reference Range Interpretation Comments Albumin Lvl (test code = Albumin Lvl) 3.9 3.5-5.0 [facility] [id number] 14:09:00 Test Item Value Reference Range Interpretation Comments CO2 (test code = CO2) 31 24-32 [facility] [employer]2018-01-09 14:09:00 Test Item Value Reference Range Interpretation Comments Calcium Lvl (test code = Calcium Lvl) 9.0 8.5-10.5 [facility] [id number] 14:09:00 Test Item Value Reference Range Interpretation Comments Potassium Lvl (test code = Potassium 3.5 3.5-5.1 Lvl) [facility] [id number] 14:09:00 Test Item Value Reference Range Interpretation Comments Chloride Lvl (test code = Chloride Lvl) 105 95-109 [facility]2018-01-09 14:09:00 Test Item Value Reference Range Interpretation Comments Sodium Lvl (test code = Sodium Lvl) 143 135-145 [facility]2018-01-09 14:09:00 Test Item Value Reference Range Interpretation Comments Creatinine Lvl (test code = Creatinine 0.71 0.50-1.40 Lvl) [facility]2018-01-09 14:09:00 Test Item Value Reference Range Interpretation Comments Total Protein (test code = Total 7.2 6.4-8.4 Protein) [facility]2018-01-09 14:09:00 Test Item Value Reference Range Interpretation Comments B/C Ratio (test code = B/C Ratio) 23 1 6-25 [facility]2018-01-09 14:09:00 Test Item Value Reference Range Interpretation Comments Globulin (test code = Globulin) 3.3 2.7-4.2 [facility]2018-01-09 14:09:00 Test Item Value Reference Range Interpretation Comments ALT (test code = ALT) 31 See_Comment [Auto mated message] The system which ge nerated this result transmit lolita reference range : <=65. The reference range was not used to interpr et this result as lauro l/abnormal. [facility]2018-01-09 14:09:00 Test Item Value Reference Range Interpretation Comments Bili Total (test code = Bili Total) 0.5 0.2-1.3 [facility]2018-01-09 14:09:00 Test Item Value Reference Range Interpretation Comments AGAP (test code = AGAP) 10.5 10.0-20.0 [facility]2018-01-09 14:09:00 Test Item Value Reference Range Interpretation Comments AST (test code = AST) 20 See_Comment [Auto mated message] The system which ge nerated this result transmit lolita reference range : <=37. The reference range was not used to interpr et this result as lauro l/abnormal. [facility]2018-01-09 14:09:00 Test Item Value Reference Range Interpretation Comments Alk Phos (test code = Alk Phos) 49 39-136 [facility]2018-01-09 14:09:00 Test Item Value Reference Range Interpretation Comments Glucose Lvl (test code = Glucose Lvl) 91 70-99 [facility]2018-01-09 14:09:00 Test Item Value Reference Range Interpretation Comments BUN (test code = BUN) 16 7-22 [facility] HoustonNeghnskMRBHMPOZQN2282-27-93 14:09:00 Test Item Value Reference Range Interpretation Comments MCHC (test code = MCHC) 35.0 32.0-36.0 [facility] HoustonGfnovggJJTDRSSUDB1615-86-65 14:09:00 Test Item Value Reference Range Interpretation Comments RDW (test code = RDW) 13.0 11.5-14.5 [facility] HoustonYptexetBTRTHLCDRY6008-63-03 14:09:00 Test Item Value Reference Range Interpretation Comments Platelet (test code = Platelet) 205 133-450 [facility] HoustonYnpphamYMPLULIJIX9199-97-05 14:09:00 Test Item Value Reference Range Interpretation Comments MPV (test code = MPV) 7.4 7.4-10.4 [facility] HoustonHbnazagVJCEQWCOTN8090-10-82 14:09:00 Test Item Value Reference Range Interpretation Comments MCH (test code = MCH) 31.2 pg 27.0-31.0 [facility] HoustonHqlzbimPCPVIUFHVT0697-71-22 14:09:00 Test Item Value Reference Range Interpretation Comments MCV (test code = MCV) 89.3 80.0-98.0 [facility] HoustonOrwjpxpKYRQQDFHSK8118-36-82 14:09:00 Test Item Value Reference Range Interpretation Comments WBC (test code = WBC) 5.3 3.7-10.4 [facility] HoustonKelqkogGJVSIMKAMT2442-61-37 14:09:00 Test Item Value Reference Range Interpretation Comments RBC (test code = RBC) 4.39 4.20-5.40 [facility] HoustonBcjwoyjAGWUQWZPNX5459-10-32 14:09:00 Test Item Value Reference Range Interpretation Comments Hgb (test code = Hgb) 13.7 12.0-16.0 [facility] HoustonUcuiysrYTHHWCQOWF4580-30-27 14:09:00 Test Item Value Reference Range Interpretation Comments Hct (test code = Hct) 39.2 36.0-48.0 [facility] HoustonMrwzwbzEFOJUYWSKK2107-77-10 14:09:00 Test Item Value Reference Range Interpretation Comments Eosinophils (test code = 3.5 See_Comment [A utomated message] The Eosinophils) system which ge nerated this result tra nsmitted reference range : <=4.0. The reference r sudhir was not used to int erpret this result as normal/abnormal . [facility] HoustonVklzzcxIXLYDOWXSP0120-19-70 14:09:00 Test Item Value Reference Range Interpretation Comments Segs-Bands # (test code = Segs-Bands #) 3.3 1.5-8.1 [facility]AxsophdBFSLDYKZJD2595-08-97 14:09:00 Test Item Value Reference Range Interpretation Comments Lymphocytes # (test code = Lymphocytes 1.3 1.0-5.5 #) [facility] RegionRaxrzteDALLPIOVUO7669-39-51 14:09:00 Test Item Value Reference Range Interpretation Comments Basophils (test code = 1.2 See_Comment [Aut omated message] The Basophils) system which ge nerated this result tra nsmitted reference range : <=1.0. The reference r sudhir was not used to int erpret this result as normal/abnormal . [facility] RegionFhlygkuDKTRYVYOCD0077-69-56 14:09:00 Test Item Value Reference Range Interpretation Comments Basophils # (test code 0.1 See_Comment [Aut omated message] The = Basophils #) system which generated this result tra nsmitted reference range : <=0.2. The reference r sudhir was not used to int erpret this result as normal/abnormal . [facility] HoustonChbvbmlGXFDJSQGJS6718-42-85 14:09:00 Test Item Value Reference Range Interpretation Comments Eosinophils # (test code 0.2 See_Comment [A utomated message] The = Eosinophils #) system whic h generated this result tra nsmitted reference range : <=0.5. The reference r sudhir was not used to int erpret this result as normal/abnormal . [facility] RegionCnudldgLQWEFBVOZW8915-02-75 14:09:00 Test Item Value Reference Range Interpretation Comments Segs (test code = Segs) 62.1 45.0-75.0 [facility] DAEKBEG1335-00-30 14:09:00 Test Item Value Reference Range Interpretation Comments Total CK (test code = Total CK) 141 12-191 [facility] EFWPGYQ9405-59-94 14:09:00 Test Item Value Reference Range Interpretation Comments CK MB (test code = CK MB) 3.9 0.5-3.6 [facility]landTUTORizeCARCephasonicsAC [id number] 14:09:00 Test Item Value Reference Range Interpretation Comments Troponin-I (test code no gt See_Comment [Auto mated message] The = Troponin-I) system which g enerated this result transmit lolita reference range : <=0.40. The reference r sudhir was not used to interpr et this result as lauro l/abnormal. [facility] [id number] 14:09:00 Test Item Value Reference Range Interpretation Comments CK MB Index (test 2.8 1 See_Comment [Automate d message] The code = CK MB Index) system w [facility] generated this result transmit lolita reference range : <=2.5. The reference range was not used to interpr et this result as lauro l/abnormal. [facility] [id number] 14:09:00 Test Item Value Reference Range Interpretation Comments eGFR (test code = eGFR) 88 [facility] [id number] 14:09:00 Test Item Value Reference Range Interpretation Comments A/G Ratio (test code = A/G Ratio) 1.2 1 0.7-1.6 [facility] [id number] 14:09:00 Test Item Value Reference Range Interpretation Comments Albumin Lvl (test code = Albumin Lvl) 3.9 3.5-5.0 [facility] [id number] 14:09:00 Test Item Value Reference Range Interpretation Comments CO2 (test code = CO2) 31 24-32 [facility] [id number] 14:09:00 Test Item Value Reference Range Interpretation Comments Calcium Lvl (test code = Calcium Lvl) 9.0 8.5-10.5 [facility] [id number] 14:09:00 Test Item Value Reference Range Interpretation Comments Potassium Lvl (test code = Potassium 3.5 3.5-5.1 Lvl) [facility] [id number] 14:09:00 Test Item Value Reference Range Interpretation Comments Chloride Lvl (test code = Chloride Lvl) 105 95-109 [facility] [id number] 14:09:00 Test Item Value Reference Range Interpretation Comments Sodium Lvl (test code = Sodium Lvl) 143 135-145 [facility]2018-01-09 14:09:00 Test Item Value Reference Range Interpretation Comments Creatinine Lvl (test code = Creatinine 0.71 0.50-1.40 Lvl) [facility]2018-01-09 14:09:00 Test Item Value Reference Range Interpretation Comments Total Protein (test code = Total 7.2 6.4-8.4 Protein) [facility]2018-01-09 14:09:00 Test Item Value Reference Range Interpretation Comments B/C Ratio (test code = B/C Ratio) 23 1 6-25 [facility]2018-01-09 14:09:00 Test Item Value Reference Range Interpretation Comments Globulin (test code = Globulin) 3.3 2.7-4.2 [facility]2018-01-09 14:09:00 Test Item Value Reference Range Interpretation Comments ALT (test code = ALT) 31 See_Comment [Auto mated message] The system which ge nerated this result transmit lolita reference range : <=65. The reference range was not used to interpr et this result as lauro l/abnormal. [facility]2018-01-09 14:09:00 Test Item Value Reference Range Interpretation Comments Bili Total (test code = Bili Total) 0.5 0.2-1.3 [facility]2018-01-09 14:09:00 Test Item Value Reference Range Interpretation Comments AGAP (test code = AGAP) 10.5 10.0-20.0 [facility]2018-01-09 14:09:00 Test Item Value Reference Range Interpretation Comments AST (test code = AST) 20 See_Comment [Auto mated message] The system which ge nerated this result transmit lolita reference range : <=37. The reference range was not used to interpr et this result as lauro l/abnormal. [facility]2018-01-09 14:09:00 Test Item Value Reference Range Interpretation Comments Alk Phos (test code = Alk Phos) 49 39-136 [facility]2018-01-09 14:09:00 Test Item Value Reference Range Interpretation Comments Glucose Lvl (test code = Glucose Lvl) 91 70-99 [id number] 14:09:00 Test Item Value Reference Range Interpretation Comments BUN (test code = BUN) 16 7-22 [facility] SculqrgSHFMMRZLIO3286-18-41 14:09:00 Test Item Value Reference Range Interpretation Comments MCHC (test code = MCHC) 35.0 32.0-36.0 [facility] BbemmmlGUZMXHGBML7285-49-27 14:09:00 Test Item Value Reference Range Interpretation Comments RDW (test code = RDW) 13.0 11.5-14.5 [facility] IlsmcxmTPVODBQUAT7582-95-83 14:09:00 Test Item Value Reference Range Interpretation Comments Platelet (test code = Platelet) 205 133-450 [facility] CWEFSRZ1575-97-06 12:58:00 Test Item Value Reference Range Interpretation Comments CK MB (test code = CK MB) 2.7 0.5-3.6 [facility] [id number] 12:58:00 Test Item Value Reference Range Interpretation Comments CK MB Index (test 1.6 See_Comment [Automate d message] The code = CK MB Index) system w [employer] generated this result transmit lolita reference range : <=2.5. The reference range was not used to interpr et this result as lauro l/abnormal. [facility] CWDEUUI2674-59-43 12:58:00 Test Item Value Reference Range Interpretation Comments Total CK (test code = Total CK) 171 12-191 [facility] RareCyteannCARDIAC MWAQLYH6315-11-03 12:58:00 Test Item Value Reference Range Interpretation Comments Troponin-I (test code no gt See_Comment [Auto mated message] The = Troponin-I) system which g enerated this result transmit lolita reference range : <=0.40. The reference r sudhir was not used to interpr et this result as lauro l/abnormal. [facility] [id number] 12:58:00 Test Item Value Reference Range Interpretation Comments CK MB (test code = CK MB) 2.7 0.5-3.6 [facility] [id number] 12:58:00 Test Item Value Reference Range Interpretation Comments CK MB Index (test 1.6 See_Comment [Automate d message] The code = CK MB Index) system w [employer] generated this result transmit lolita reference range : <=2.5. The reference range was not used to interpr et this result as lauro l/abnormal. [facility] [employer]2015-04-16 12:58:00 Test Item Value Reference Range Interpretation Comments Total CK (test code = Total CK) 171 191 [facility] [employer]2015-04-16 12:58:00 Test Item Value Reference Range Interpretation Comments Troponin-I (test code no gt See_Comment [Auto mated message] The = Troponin-I) system which g enerated this result transmit lolita reference range : <=0.40. The reference r sudhir was not used to interpr et this result as lauro l/abnormal. [facility] [employer]2015-04-16 08:05:00 Test Item Value Reference Range Interpretation Comments Total CK (test code = Total CK) 195 191 [facility] [employer]2015-04-16 08:05:00 Test Item Value Reference Range Interpretation Comments Troponin-I (test code no gt See_Comment [Auto mated message] The = Troponin-I) system which g enerated this result transmit lolita reference range : <=0.40. The reference r sudhir was not used to interpr et this result as lauro l/abnormal. [facility] [employer]2015-04-16 08:05:00 Test Item Value Reference Range Interpretation Comments CK MB Index (test 1.5 See_Comment [Automate d message] The code = CK MB Index) system w [facility] generated this result transmit lolita reference range : <=2.5. The reference range was not used to interpr et this result as lauro l/abnormal. [facility] [employer]2015-04-16 08:05:00 Test Item Value Reference Range Interpretation Comments CK MB (test code = CK MB) 3.0 0.5-3.6 [facility] [employer]2015-04-16 08:05:00 Test Item Value Reference Range Interpretation Comments eGFR (test code = eGFR) 67 [facility] [employer]2015-04-16 08:05:00 Test Item Value Reference Range Interpretation Comments BUN (test code = BUN) 13 7- [facility] [employer]2015-04-16 08:05:00 Test Item Value Reference Range Interpretation Comments Glucose Lvl (test code = Glucose Lvl) 102 70-99 [facility]2015-04-16 08:05:00 Test Item Value Reference Range Interpretation Comments Sodium Lvl (test code = Sodium Lvl) 142 135-145 [facility]2015-04-16 08:05:00 Test Item Value Reference Range Interpretation Comments Creatinine Lvl (test code = Creatinine 0.9 0.5-1.4 Lvl) [facility]2015-04-16 08:05:00 Test Item Value Reference Range Interpretation Comments Calcium Lvl (test code = Calcium Lvl) 8.9 8.5-10.5 [facility]2015-04-16 08:05:00 Test Item Value Reference Range Interpretation Comments CO2 (test code = CO2) 31 24-32 [facility]2015-04-16 08:05:00 Test Item Value Reference Range Interpretation Comments Potassium Lvl (test code = Potassium 3.2 3.5-5.1 Lvl) [facility]2015-04-16 08:05:00 Test Item Value Reference Range Interpretation Comments Chloride Lvl (test code = Chloride Lvl) 103 95-109 [facility]2015-04-16 08:05:00 Test Item Value Reference Range Interpretation Comments AGAP (test code = AGAP) 11.2 10.0-20.0 [facility] HoustonOnknugwRHNZFNYJGK7262-99-08 08:05:00 Test Item Value Reference Range Interpretation Comments Lymphocytes # (test code = Lymphocytes 1.7 1.0-5.5 #) [facility] HoustonRfkckagUKPPJXHIHL1926-91-73 08:05:00 Test Item Value Reference Range Interpretation Comments Monocytes # (test code 0.5 See_Comment [Aut omated message] The = Monocytes #) system which generated this result tra nsmitted reference range : <=0.8. The reference r sudhir was not used to int erpret this result as normal/abnormal . [facility] HoustonNximkoiXFZHCDFGML5841-54-57 08:05:00 Test Item Value Reference Range Interpretation Comments Basophils (test code = 0.6 See_Comment [Aut omated message] The Basophils) system which ge nerated this result tra nsmitted reference range : <=1.0. The reference r sudhir was not used to int erpret this result as normal/abnormal . [place] 655865-04-16 08:05:00 Test Item Value Reference Range Interpretation Comments Segs-Bands # (test code = Segs-Bands #) 3.0 1.5-8.1 [facility] HoustonAipfhhhHFDSGRPXMO7621-53-15 08:05:00 Test Item Value Reference Range Interpretation Comments Eosinophils (test code = 4.1 See_Comment [A utomated message] The Eosinophils) system which ge nerated this result tra nsmitted reference range : <=4.0. The reference r sudhir was not used to int erpret this result as normal/abnormal . [facility] HoustonRoqmckaXVNAKHABML1894-89-55 08:05:00 Test Item Value Reference Range Interpretation Comments Lymphocytes (test code = Lymphocytes) 31.7 20.0-40.0 [facility] HoustonZnhrqzrYODLVLPDCQ0473-34-61 08:05:00 Test Item Value Reference Range Interpretation Comments Monocytes (test code = Monocytes) 9.8 2.0-12.0 [facility] HoustonIhtblkkVXMRJTUIZV5472-53-93 08:05:00 Test Item Value Reference Range Interpretation Comments Segs (test code = Segs) 53.8 45.0-75.0 [facility] HoustonJqcsmvsXBOTYLRXAK9092-04-37 08:05:00 Test Item Value Reference Range Interpretation Comments Eosinophils # (test code 0.2 See_Comment [A utomated message] The = Eosinophils #) system whic h generated this result tra nsmitted reference range : <=0.5. The reference r sudhir was not used to int erpret this result as normal/abnormal . [facility] HoustonIdnpjpkAWWIKDHQBO5386-76-64 08:05:00 Test Item Value Reference Range Interpretation Comments Basophils # (test code 0.0 See_Comment [Aut omated message] The = Basophils #) system which generated this result tra nsmitted reference range : <=0.2. The reference r sudhir was not used to int erpret this result as normal/abnormal . [facility] HoustonBbumbsjJXESMZBOHO1064-41-01 08:05:00 Test Item Value Reference Range Interpretation Comments PT (test code = PT) 12.5 s 12.0-14.7 [facility] HoustonRbcxvgsYCMVWWAGRB4648-07-35 08:05:00 Test Item Value Reference Range Interpretation Comments PTT (test code = PTT) 28.7 s 22.9-35.8 [facility] HoustonZzlntokQUCPZGHWHI9904-17-17 08:05:00 Test Item Value Reference Range Interpretation Comments INR (test code = INR) 0.94 0.85-1.17 [facility] HoustonRcpfpmdCNLJMYKZXE2562-12-42 08:05:00 Test Item Value Reference Range Interpretation Comments Platelet (test code = Platelet) 233 133-450 [facility] HoustonKgrdscxOCVBJDLYHO6302-61-53 08:05:00 Test Item Value Reference Range Interpretation Comments MPV (test code = MPV) 7.9 7.4-10.4 [facility] HoustonKmzmuovRAPXYRJCVG6590-15-31 08:05:00 Test Item Value Reference Range Interpretation Comments RDW (test code = RDW) 13.6 11.5-14.5 [facility] HoustonYlsyrqpQFUJIVEYGT1661-39-56 08:05:00 Test Item Value Reference Range Interpretation Comments Hct (test code = Hct) 38.8 36.0-48.0 [facility] HoustonTmokvrvWYKVEFHYUU9970-58-30 08:05:00 Test Item Value Reference Range Interpretation Comments MCV (test code = MCV) 93.7 80.0-98.0 [facility] HoustonBmtkyliMKYLNOOLHF5747-08-21 08:05:00 Test Item Value Reference Range Interpretation Comments MCH (test code = MCH) 32.4 pg 27.0-31.0 [facility] HoustonSihqqemKYNILTHASZ6348-30-28 08:05:00 Test Item Value Reference Range Interpretation Comments MCHC (test code = MCHC) 34.6 32.0-36.0 [facility] HoustonJsepuppTDFZBYZORI5416-35-60 08:05:00 Test Item Value Reference Range Interpretation Comments Hgb (test code = Hgb) 13.4 12.0-16.0 [facility] HoustonGwwupctTUHGLQHEUX7067-08-32 08:05:00 Test Item Value Reference Range Interpretation Comments WBC (test code = WBC) 5.5 3.7-10.4 [facility] HoustonTnckmctXEZJHOVMLQ7818-01-81 08:05:00 Test Item Value Reference Range Interpretation Comments RBC (test code = RBC) 4.14 4.20-5.40 [facility]SfhbsiyUEFOYF0862-42-51 08:05:00 Test Item Value Reference Range Interpretation Comments VLDL (test code = VLDL) 36 [facility]wnWNLLJB7681-90-81 08:05:00 Test Item Value Reference Range Interpretation Comments LDL (Calculated) (test code = LDL 85 (Calculated)) [facility] FnlmcrjXOMPMW1193-37-22 08:05:00 Test Item Value Reference Range Interpretation Comments Chol (test code = Chol) 174 [facility] YokaiffBJTUJH5781-88-38 08:05:00 Test Item Value Reference Range Interpretation Comments Trig (test code = Trig) 182 [facility] CngdofyAXWIJP8543-17-22 08:05:00 Test Item Value Reference Range Interpretation Comments HDL (test code = HDL) 53 [facility] KtsmwokTYNGNO0831-08-15 08:05:00 Test Item Value Reference Range Interpretation Comments CHD Risk (test code = CHD Risk) 3.28 3.90-5.80 [facility] RareCyteannCARCephasonicsAC ZSWAQTG6994-30-60 08:05:00 Test Item Value Reference Range Interpretation Comments Total CK (test code = Total CK) 195 12-191 [facility] i[employer] MobileAC WDQDVRW9899-08-45 08:05:00 Test Item Value Reference Range Interpretation Comments Troponin-I (test code no gt See_Comment [Auto mated message] The = Troponin-I) system which g enerated this result transmit lolita reference range : <=0.40. The reference r sudhir was not used to interpr et this result as lauro l/abnormal. Aubrey2015-04-16 08:05:00 Test Item Value Reference Range Interpretation Comments CK MB Index (test 1.5 See_Comment [Automate d message] The code = CK MB Index) system w [facility] generated this result transmit lolita reference range : <=2.5. The reference range was not used to interpr et this result as lauro l/abnormal. [employer] [id number] 08:05:00 Test Item Value Reference Range Interpretation Comments CK MB (test code = CK MB) 3.0 0.5-3.6 [facility] [id number] 08:05:00 Test Item Value Reference Range Interpretation Comments eGFR (test code = eGFR) 67 [facility] [id number] 08:05:00 Test Item Value Reference Range Interpretation Comments BUN (test code = BUN) 13 7-22 [facility] [id number] 08:05:00 Test Item Value Reference Range Interpretation Comments Glucose Lvl (test code = Glucose Lvl) 102 70-99 [facility]2015-04-16 08:05:00 Test Item Value Reference Range Interpretation Comments Sodium Lvl (test code = Sodium Lvl) 142 135-145 [facility]2015-04-16 08:05:00 Test Item Value Reference Range Interpretation Comments Creatinine Lvl (test code = Creatinine 0.9 0.5-1.4 Lvl) [facility]2015-04-16 08:05:00 Test Item Value Reference Range Interpretation Comments Calcium Lvl (test code = Calcium Lvl) 8.9 8.5-10.5 [facility]2015-04-16 08:05:00 Test Item Value Reference Range Interpretation Comments CO2 (test code = CO2) 31 24-32 [facility]2015-04-16 08:05:00 Test Item Value Reference Range Interpretation Comments Potassium Lvl (test code = Potassium 3.2 3.5-5.1 Lvl) [facility]2015-04-16 08:05:00 Test Item Value Reference Range Interpretation Comments Chloride Lvl (test code = Chloride Lvl) 103 95-109 [facility]2015-04-16 08:05:00 Test Item Value Reference Range Interpretation Comments AGAP (test code = AGAP) 11.2 10.0-20.0 [facility] HoustonUihpjzaKNWNKHGOKB5510-88-62 08:05:00 Test Item Value Reference Range Interpretation Comments Lymphocytes # (test code = Lymphocytes 1.7 1.0-5.5 #) [facility] HoustonGxsrxasESVMXPWZRW9292-41-03 08:05:00 Test Item Value Reference Range Interpretation Comments Monocytes # (test code 0.5 See_Comment [Aut omated message] The = Monocytes #) system which generated this result tra nsmitted reference range : <=0.8. The reference r sudhir was not used to int erpret this result as normal/abnormal . [facility] HoustonDxemrtcBSHVOULJPG8048-23-61 08:05:00 Test Item Value Reference Range Interpretation Comments Basophils (test code = 0.6 See_Comment [Aut omated message] The Basophils) system which ge nerated this result tra nsmitted reference range : <=1.0. The reference r sudhir was not used to int erpret this result as normal/abnormal . [facility] HoustonCosnnrxANVAUCKQVE4809-01-89 08:05:00 Test Item Value Reference Range Interpretation Comments Segs-Bands # (test code = Segs-Bands #) 3.0 1.5-8.1 [facility] HoustonQsdnnjnTUSNPTYXIC9671-96-74 08:05:00 Test Item Value Reference Range Interpretation Comments Eosinophils (test code = 4.1 See_Comment [A utomated message] The Eosinophils) system which ge nerated this result tra nsmitted reference range : <=4.0. The reference r sudhir was not used to int erpret this result as normal/abnormal . [facility] HoustonHvdtnozZMIXBJUJAK7676-07-27 08:05:00 Test Item Value Reference Range Interpretation Comments Lymphocytes (test code = Lymphocytes) 31.7 20.0-40.0 [facility] HoustonVomxhcwORRDZRDXNL9191-65-73 08:05:00 Test Item Value Reference Range Interpretation Comments Monocytes (test code = Monocytes) 9.8 2.0-12.0 [facility] HoustonAkuypqrRPZWXWIBPT3536-67-19 08:05:00 Test Item Value Reference Range Interpretation Comments Segs (test code = Segs) 53.8 45.0-75.0 [facility] HoustonXldjtpwEWAQXKSDWZ8111-26-40 08:05:00 Test Item Value Reference Range Interpretation Comments Eosinophils # (test code 0.2 See_Comment [A utomated message] The = Eosinophils #) system whic h generated this result tra nsmitted reference range : <=0.5. The reference r sudhir was not used to int erpret this result as normal/abnormal . [facility] HoustonLsvlsehCGNWDBYAVM4518-76-41 08:05:00 Test Item Value Reference Range Interpretation Comments Basophils # (test code 0.0 See_Comment [Aut omated message] The = Basophils #) system which generated this result tra nsmitted reference range : <=0.2. The reference r sudhir was not used to int erpret this result as normal/abnormal . [facility] HoustonXswbwhwTYDHZZSHKG5185-48-18 08:05:00 Test Item Value Reference Range Interpretation Comments PT (test code = PT) 12.5 s 12.0-14.7 [facility] HoustonWqryuovAFMLPNAURY0103-77-72 08:05:00 Test Item Value Reference Range Interpretation Comments PTT (test code = PTT) 28.7 s 22.9-35.8 [facility] HoustonYodozlxOTLNRVQAXP2692-22-88 08:05:00 Test Item Value Reference Range Interpretation Comments INR (test code = INR) 0.94 0.85-1.17 [facility] HoustonLzycikyBQSTVXXBHV1091-72-72 08:05:00 Test Item Value Reference Range Interpretation Comments Platelet (test code = Platelet) 233 133-450 [facility] HoustonAdmcctoGYKYKXYCHJ1443-51-79 08:05:00 Test Item Value Reference Range Interpretation Comments MPV (test code = MPV) 7.9 7.4-10.4 [facility] HoustonIwsxdhvFWMVAHWRDK5093-47-69 08:05:00 Test Item Value Reference Range Interpretation Comments RDW (test code = RDW) 13.6 11.5-14.5 [facility] HoustonVtqjxbwXNNHXZPVPA6912-96-37 08:05:00 Test Item Value Reference Range Interpretation Comments Hct (test code = Hct) 38.8 36.0-48.0 [facility] HoustonAjksvttJGJLZBAHXA2584-60-70 08:05:00 Test Item Value Reference Range Interpretation Comments MCV (test code = MCV) 93.7 80.0-98.0 [facility] HoustonIrerpjbJNLZVLVNTI3024-17-73 08:05:00 Test Item Value Reference Range Interpretation Comments MCH (test code = MCH) 32.4 pg 27.0-31.0 [facility] HoustonYrertwxOBEENYQMJV4503-32-83 08:05:00 Test Item Value Reference Range Interpretation Comments MCHC (test code = MCHC) 34.6 32.0-36.0 [facility] HoustonJfvukwxPTOXRBZNLV9757-00-79 08:05:00 Test Item Value Reference Range Interpretation Comments Hgb (test code = Hgb) 13.4 12.0-16.0 [facility] HoustonZigsrpnDFCAEHEUUS2340-35-03 08:05:00 Test Item Value Reference Range Interpretation Comments WBC (test code = WBC) 5.5 3.7-10.4 [facility] HoustonNlsinplCILFMOWOFB6347-80-13 08:05:00 Test Item Value Reference Range Interpretation Comments RBC (test code = RBC) 4.14 4.20-5.40 [facility]SjzvvdqYARAZG6400-20-09 08:05:00 Test Item Value Reference Range Interpretation Comments VLDL (test code = VLDL) 36 [facility] McKinneyUizldjwAQRCWQ4469-29-22 08:05:00 Test Item Value Reference Range Interpretation Comments LDL (Calculated) (test code = LDL 85 (Calculated)) [place] 402145-04-16 08:05:00 Test Item Value Reference Range Interpretation Comments Chol (test code = Chol) 174 [facility]neyQedlhdsMURFMI2793-91-74 08:05:00 Test Item Value Reference Range Interpretation Comments Trig (test code = Trig) 182 [facility] McKinneyYkmgvdpGUNTLH6958-21-26 08:05:00 Test Item Value Reference Range Interpretation Comments HDL (test code = HDL) 53 [facility] McKinneyDhzilbnFGKZNZ1131-21-04 08:05:00 Test Item Value Reference Range Interpretation Comments CHD Risk (test code = CHD Risk) 3.28 3.90-5.80 [facility] AND [id number] 06:25:00 Test Item Value Reference Range Interpretation Comments UA Bacteria (test code = None Seen (03/08/15 UA Bacteria) 1:25 AM) [facility] AND [id number] 06:25:00 Test Item Value Reference Range Interpretation Comments UA RBC (test code = 0-2 /HPF See_Comment [Automa lolita message] The UA RBC) system which ge nerated this result tra nsmitted reference range : <=2. The reference range was not used to interpr et this result as lauro l/abnormal. [facility] AND [id number] 06:25:00 Test Item Value Reference Range Interpretation Comments UA WBC (test code = UA None Seen (03/08/15 1:25 WBC) AM) [facility] AND [id number] 06:25:00 Test Item Value Reference Range Interpretation Comments UA Leuk Est (test Negative (03/08/15 1:25 code = UA Leuk Est) AM) [facility] AND [id number] 06:25:00 Test Item Value Reference Range Interpretation Comments UA Sq Epi (test code = UA Sq Epi) Rare /LPF [facility] AND [id number] 06:25:00 Test Item Value Reference Range Interpretation Comments UA Protein (test code Negative (03/08/15 1:25 = UA Protein) AM) [facility] AND [id number] 06:25:00 Test Item Value Reference Range Interpretation Comments UA Ketones (test code Negative *NA*(03/08/15 = UA Ketones) 1:25 AM) [facility] AND [id number] 06:25:00 Test Item Value Reference Range Interpretation Comments UA Spec Grav (test code *NA*(03/08/15 1:25 AM) = UA Spec Grav) [facility] AND [id number] 06:25:00 Test Item Value Reference Range Interpretation Comments UA pH (test code = UA pH) 7.0 1 5.0-8.0 [facility] AND [id number] 06:25:00 Test Item Value Reference Range Interpretation Comments UA Glucose (test code Negative (03/08/15 1:25 = UA Glucose) AM) [facility] AND [id number] 06:25:00 Test Item Value Reference Range Interpretation Comments UA Urobilinogen (test code = UA 0.2 0.1-1.0 Urobilinogen) [facility] AND [id number] 06:25:00 Test Item Value Reference Range Interpretation Comments UA Blood (test code = Small *ABN*(03/08/15 UA Blood) 1:25 AM) [facility] AND [id number] 06:25:00 Test Item Value Reference Range Interpretation Comments UA Nitrite (test code Negative (03/08/15 1:25 = UA Nitrite) AM) [facility] AND [id number] 06:25:00 Test Item Value Reference Range Interpretation Comments UA Bili (test code = Negative *NA*(03/08/15 UA Bili) 1:25 AM) [facility] AND [id number] 06:25:00 Test Item Value Reference Range Interpretation Comments UA Turbidity (test code = Clear (03/08/15 1:25 UA Turbidity) AM) [facility] AND [id number] 06:25:00 Test Item Value Reference Range Interpretation Comments UA Color (test code = Yellow *NA*(03/08/15 UA Color) 1:25 AM) [facility] AND [id number] 06:25:00 Test Item Value Reference Range Interpretation Comments UA Bacteria (test code = None Seen (03/08/15 UA Bacteria) 1:25 AM) [facility] AND [id number] 06:25:00 Test Item Value Reference Range Interpretation Comments UA RBC (test code = 0-2 /HPF See_Comment [Automa lolita message] The UA RBC) system which ge nerated this result tra nsmitted reference range : <=2. The reference range was not used to interpr et this result as lauro l/abnormal. [facility] AND [id number] 06:25:00 Test Item Value Reference Range Interpretation Comments UA WBC (test code = UA None Seen (03/08/15 1:25 WBC) AM) [facility] AND [id number] 06:25:00 Test Item Value Reference Range Interpretation Comments UA Leuk Est (test Negative (03/08/15 1:25 code = UA Leuk Est) AM) [facility] AND [id number] 06:25:00 Test Item Value Reference Range Interpretation Comments UA Sq Epi (test code = UA Sq Epi) Rare /LPF [facility] AND [id number] 06:25:00 Test Item Value Reference Range Interpretation Comments UA Protein (test code Negative (03/08/15 1:25 = UA Protein) AM) [facility] AND [id number] 06:25:00 Test Item Value Reference Range Interpretation Comments UA Ketones (test code Negative *NA*(03/08/15 = UA Ketones) 1:25 AM) [facility] AND [id number] 06:25:00 Test Item Value Reference Range Interpretation Comments UA Spec Grav (test code *NA*(03/08/15 1:25 AM) = UA Spec Grav) [facility] AND [id number] 06:25:00 Test Item Value Reference Range Interpretation Comments UA pH (test code = UA pH) 7.0 1 5.0-8.0 [facility] AND [id number] 06:25:00 Test Item Value Reference Range Interpretation Comments UA Glucose (test code Negative (03/08/15 1:25 = UA Glucose) AM) [facility] AND [id number] 06:25:00 Test Item Value Reference Range Interpretation Comments UA Urobilinogen (test code = UA 0.2 0.1-1.0 Urobilinogen) [facility] AND [id number] 06:25:00 Test Item Value Reference Range Interpretation Comments UA Blood (test code = Small *ABN*(03/08/15 UA Blood) 1:25 AM) [facility] [id number] 06:25:00 Test Item Value Reference Range Interpretation Comments UA Nitrite (test code Negative (03/08/15 1:25 = UA Nitrite) AM) [facility] [id number] 06:25:00 Test Item Value Reference Range Interpretation Comments UA Bili (test code = Negative *NA*(03/08/15 UA Bili) 1:25 AM) [facility] [id number] 06:25:00 Test Item Value Reference Range Interpretation Comments UA Turbidity (test code = Clear (03/08/15 1:25 UA Turbidity) AM) [facility] [id number] 06:25:00 Test Item Value Reference Range Interpretation Comments UA Color (test code = Yellow *NA*(03/08/15 UA Color) 1:25 AM) [facility] [id number] 04:03:00 Test Item Value Reference Range Interpretation Comments Troponin-I (test code no gt See_Comment [Auto mated message] The = Troponin-I) system which g enerated this result transmit lolita reference range : <=0.40. The reference r sudhir was not used to interpr et this result as lauro l/abnormal. [facility] [id number] 04:03:00 Test Item Value Reference Range Interpretation Comments CK MB (test code = CK MB) 3.4 0.5-3.6 [facility] [id number] 04:03:00 Test Item Value Reference Range Interpretation Comments Total CK (test code = Total CK) 212 12-191 [facility] HermannCARDIAC [id number] 04:03:00 Test Item Value Reference Range Interpretation Comments BNP (test code = BNP) 8 [facility] [id number] 04:03:00 Test Item Value Reference Range Interpretation Comments CK MB Index (test 1.6 See_Comment [Automate d message] The code = CK MB Index) system w [facility] generated this result transmit lolita reference range : <=2.5. The reference range was not used to interpr et this result as lauro l/abnormal. [facility]annCHE[facility] [id number] 04:03:00 Test Item Value Reference Range Interpretation Comments eGFR (test code = eGFR) 67 [facility]2015-04-16 04:03:00 Test Item Value Reference Range Interpretation Comments AGAP (test code = AGAP) 14.1 10.0-20.0 [facility]2015-04-16 04:03:00 Test Item Value Reference Range Interpretation Comments Albumin Lvl (test code = Albumin Lvl) 4.2 3.5-5.0 [facility]2015-04-16 04:03:00 Test Item Value Reference Range Interpretation Comments Calcium Lvl (test code = Calcium Lvl) 9.7 8.5-10.5 [facility]2015-04-16 04:03:00 Test Item Value Reference Range Interpretation Comments Creatinine Lvl (test code = Creatinine 0.9 0.5-1.4 Lvl) [facility]2015-04-16 04:03:00 Test Item Value Reference Range Interpretation Comments CO2 (test code = CO2) 29 24-32 [facility]2015-04-16 04:03:00 Test Item Value Reference Range Interpretation Comments Chloride Lvl (test code = Chloride Lvl) 103 95-109 [facility]2015-04-16 04:03:00 Test Item Value Reference Range Interpretation Comments Potassium Lvl (test code = Potassium 3.1 3.5-5.1 Lvl) [facility]2015-04-16 04:03:00 Test Item Value Reference Range Interpretation Comments Sodium Lvl (test code = Sodium Lvl) 143 135-145 [facility]2015-04-16 04:03:00 Test Item Value Reference Range Interpretation Comments B/C Ratio (test code = B/C Ratio) 16 6-25 [facility]2015-04-16 04:03:00 Test Item Value Reference Range Interpretation Comments BUN (test code = BUN) 14 7-22 [facility]2015-04-16 04:03:00 Test Item Value Reference Range Interpretation Comments Glucose Lvl (test code = Glucose Lvl) 125 70-99 [facility]2015-04-16 04:03:00 Test Item Value Reference Range Interpretation Comments Total Protein (test code = Total 7.7 6.4-8.4 Protein) [facility]2015-04-16 04:03:00 Test Item Value Reference Range Interpretation Comments ALT (test code = ALT) 30 See_Comment [Auto mated message] The system which ge nerated this result transmit lolita reference range : <=65. The reference range was not used to interpr et this result as lauro l/abnormal. [place] [id number] 04:03:00 Test Item Value Reference Range Interpretation Comments A/G Ratio (test code = A/G Ratio) 1.2 0.7-1.6 [facility]2015-04-16 04:03:00 Test Item Value Reference Range Interpretation Comments Globulin (test code = Globulin) 3.5 2.0-4.0 [facility]2015-04-16 04:03:00 Test Item Value Reference Range Interpretation Comments Bili Total (test code = Bili Total) 0.3 0.2-1.3 [facility]2015-04-16 04:03:00 Test Item Value Reference Range Interpretation Comments Alk Phos (test code = Alk Phos) 65 39-136 [facility]2015-04-16 04:03:00 Test Item Value Reference Range Interpretation Comments AST (test code = AST) 23 See_Comment [Auto mated message] The system which ge nerated this result transmit lolita reference range : <=37. The reference range was not used to interpr et this result as lauro l/abnormal. [facility]2015-04-16 04:03:00 Test Item Value Reference Range Interpretation Comments Lipase Lvl (test code = Lipase Lvl) 313 73-393 [facility] HoustonOoluwjzQQICGZVXVF0149-99-78 04:03:00 Test Item Value Reference Range Interpretation Comments RDW (test code = RDW) 13.5 11.5-14.5 [facility] HoustonJybcsgtKJVMWTFBNJ8300-15-16 04:03:00 Test Item Value Reference Range Interpretation Comments MPV (test code = MPV) 8.3 7.4-10.4 [facility] HoustonKxvyxujRNTCUILARQ7647-11-52 04:03:00 Test Item Value Reference Range Interpretation Comments MCHC (test code = MCHC) 34.2 32.0-36.0 [facility] HoustonUlbesvhOLSJWULLOD8096-18-86 04:03:00 Test Item Value Reference Range Interpretation Comments Platelet (test code = Platelet) 242 133-450 [facility] HoustonPybwfrsJKFWDQXLLY2757-99-23 04:03:00 Test Item Value Reference Range Interpretation Comments MCH (test code = MCH) 32.1 pg 27.0-31.0 [facility] HoustonWhoelozIZGYXPWCXA6405-51-55 04:03:00 Test Item Value Reference Range Interpretation Comments WBC (test code = WBC) 6.4 3.7-10.4 [facility] HoustonDkuamaoOWDCLDCFOR0798-61-88 04:03:00 Test Item Value Reference Range Interpretation Comments Hgb (test code = Hgb) 13.6 12.0-16.0 [facility] HoustonJvfmnykKILNSIXPTD4512-06-89 04:03:00 Test Item Value Reference Range Interpretation Comments Hct (test code = Hct) 40.0 36.0-48.0 [facility] HoustonEuevvizUFJRWSQWCR3977-44-07 04:03:00 Test Item Value Reference Range Interpretation Comments RBC (test code = RBC) 4.26 4.20-5.40 [facility] HoustonPbuawcgVCQNREAJFJ3915-58-87 04:03:00 Test Item Value Reference Range Interpretation Comments MCV (test code = MCV) 93.9 80.0-98.0 [facility] HoustonKlnyimoRZTKQOWZHK1501-26-53 04:03:00 Test Item Value Reference Range Interpretation Comments PTT (test code = PTT) 28.5 s 22.9-35.8 [facility] HoustonNxpntaoMOUYOGLYCF4176-95-06 04:03:00 Test Item Value Reference Range Interpretation Comments PT (test code = PT) 12.0 s 12.0-14.7 [facility] HoustonYrxkchkIHHHTVYLCP4355-01-44 04:03:00 Test Item Value Reference Range Interpretation Comments INR (test code = INR) 0.89 0.85-1.17 [facility] HoustonOnbueoxBSONDBJEAX3251-19-47 04:03:00 Test Item Value Reference Range Interpretation Comments Eosinophils # (test code 0.3 See_Comment [A utomated message] The = Eosinophils #) system whic h generated this result tra nsmitted reference range : <=0.5. The reference r sudhir was not used to int erpret this result as normal/abnormal . [facility] HoustonFzlblatOJVUSBGCHJ0168-99-08 04:03:00 Test Item Value Reference Range Interpretation Comments Lymphocytes # (test code = Lymphocytes 2.0 1.0-5.5 #) [facility] HoustonSveeylrARMUCYFMLY4370-72-12 04:03:00 Test Item Value Reference Range Interpretation Comments Monocytes # (test code 0.5 See_Comment [Aut omated message] The = Monocytes #) system which generated this result tra nsmitted reference range : <=0.8. The reference r sudhir was not used to int erpret this result as normal/abnormal . [facility] HoustonZliqwfwRZAOKSRPPT3909-12-16 04:03:00 Test Item Value Reference Range Interpretation Comments Basophils # (test code 0.0 See_Comment [Aut omated message] The = Basophils #) system which generated this result tra nsmitted reference range : <=0.2. The reference r sudhir was not used to int erpret this result as normal/abnormal . [facility] HoustonFnwywxaJGHJKJIVUK7837-37-28 04:03:00 Test Item Value Reference Range Interpretation Comments Basophils (test code = 0.7 See_Comment [Aut omated message] The Basophils) system which ge nerated this result tra nsmitted reference range : <=1.0. The reference r sudhir was not used to int erpret this result as normal/abnormal . [id number] 04:03:00 Test Item Value Reference Range Interpretation Comments Eosinophils (test code = 4.2 See_Comment [A utomated message] The Eosinophils) system which ge nerated this result tra nsmitted reference range : <=4.0. The reference r sudhir was not used to int erpret this result as normal/abnormal . [facility] Houst[id number] 04:03:00 Test Item Value Reference Range Interpretation Comments Segs-Bands # (test code = Segs-Bands #) 3.6 1.5-8.1 [facility] HoustonUyfaxqhURRPRTWKTK0307-28-04 04:03:00 Test Item Value Reference Range Interpretation Comments Monocytes (test code = Monocytes) 7.6 2.0-12.0 [facility] HoustonHlvgszrQEUGZRPREX6742-95-43 04:03:00 Test Item Value Reference Range Interpretation Comments Lymphocytes (test code = Lymphocytes) 30.8 20.0-40.0 [facility] HoustonUemeghpHJMOBKBOBJ6953-73-91 04:03:00 Test Item Value Reference Range Interpretation Comments Segs (test code = Segs) 56.7 45.0-75.0 [facility] [id number] 04:03:00 Test Item Value Reference Range Interpretation Comments Troponin-I (test code no gt See_Comment [Auto mated message] The = Troponin-I) system which g enerated this result transmit lolita reference range : <=0.40. The reference r sudhir was not used to interpr et this result as lauro l/abnormal. [facility] RareCyteannCARDIAC [id number] 04:03:00 Test Item Value Reference Range Interpretation Comments CK MB (test code = CK MB) 3.4 0.5-3.6 [facility] HermannCARDIAC [id number] 04:03:00 Test Item Value Reference Range Interpretation Comments Total CK (test code = Total CK) 212 12-191 [facility] RareCyteannCARCephasonicsAC [id number] 04:03:00 Test Item Value Reference Range Interpretation Comments BNP (test code = BNP) 8 [facility] RareCyteannCARCephasonicsAC [id number] 04:03:00 Test Item Value Reference Range Interpretation Comments CK MB Index (test 1.6 See_Comment [Automate d message] The code = CK MB Index) system w [facility] generated this result transmit lolita reference range : <=2.5. The reference range was not used to interpr et this result as lauro l/abnormal. [facility] [id number] 04:03:00 Test Item Value Reference Range Interpretation Comments eGFR (test code = eGFR) 67 [facility] [id number] 04:03:00 Test Item Value Reference Range Interpretation Comments AGAP (test code = AGAP) 14.1 10.0-20.0 [facility] [id number] 04:03:00 Test Item Value Reference Range Interpretation Comments Albumin Lvl (test code = Albumin Lvl) 4.2 3.5-5.0 [facility] [id number] 04:03:00 Test Item Value Reference Range Interpretation Comments Calcium Lvl (test code = Calcium Lvl) 9.7 8.5-10.5 [facility] [id number] 04:03:00 Test Item Value Reference Range Interpretation Comments Creatinine Lvl (test code = Creatinine 0.9 0.5-1.4 Lvl) [facility] [id number] 04:03:00 Test Item Value Reference Range Interpretation Comments CO2 (test code = CO2) 29 24-32 [facility]2015-04-16 04:03:00 Test Item Value Reference Range Interpretation Comments Chloride Lvl (test code = Chloride Lvl) 103 95-109 [facility]2015-04-16 04:03:00 Test Item Value Reference Range Interpretation Comments Potassium Lvl (test code = Potassium 3.1 3.5-5.1 Lvl) [facility]2015-04-16 04:03:00 Test Item Value Reference Range Interpretation Comments Sodium Lvl (test code = Sodium Lvl) 143 135-145 [facility]2015-04-16 04:03:00 Test Item Value Reference Range Interpretation Comments B/C Ratio (test code = B/C Ratio) 16 6-25 [facility]2015-04-16 04:03:00 Test Item Value Reference Range Interpretation Comments BUN (test code = BUN) 14 7-22 [facility]2015-04-16 04:03:00 Test Item Value Reference Range Interpretation Comments Glucose Lvl (test code = Glucose Lvl) 125 70-99 [facility]2015-04-16 04:03:00 Test Item Value Reference Range Interpretation Comments Total Protein (test code = Total 7.7 6.4-8.4 Protein) [facility]2015-04-16 04:03:00 Test Item Value Reference Range Interpretation Comments ALT (test code = ALT) 30 See_Comment [Auto mated message] The system which ge nerated this result transmit lolita reference range : <=65. The reference range was not used to interpr et this result as lauro l/abnormal. [facility]2015-04-16 04:03:00 Test Item Value Reference Range Interpretation Comments A/G Ratio (test code = A/G Ratio) 1.2 0.7-1.6 [facility]2015-04-16 04:03:00 Test Item Value Reference Range Interpretation Comments Globulin (test code = Globulin) 3.5 2.0-4.0 [facility]2015-04-16 04:03:00 Test Item Value Reference Range Interpretation Comments Bili Total (test code = Bili Total) 0.3 0.2-1.3 [facility]2015-04-16 04:03:00 Test Item Value Reference Range Interpretation Comments Alk Phos (test code = Alk Phos) 65 39-136 [facility]2015-04-16 04:03:00 Test Item Value Reference Range Interpretation Comments AST (test code = AST) 23 See_Comment [Auto mated message] The system which ge nerated this result transmit lolita reference range : <=37. The reference range was not used to interpr et this result as lauro l/abnormal. [facility]2015-04-16 04:03:00 Test Item Value Reference Range Interpretation Comments Lipase Lvl (test code = Lipase Lvl) 313 73-393 [facility] HoustonOtuhtozGPEUJANZFR0522-41-33 04:03:00 Test Item Value Reference Range Interpretation Comments RDW (test code = RDW) 13.5 11.5-14.5 [facility] HoustonUbqtbndVVSZVXVWFZ1274-77-91 04:03:00 Test Item Value Reference Range Interpretation Comments MPV (test code = MPV) 8.3 7.4-10.4 [facility] HoustonFxboqzuUQFPEWFWPU9441-91-20 04:03:00 Test Item Value Reference Range Interpretation Comments MCHC (test code = MCHC) 34.2 32.0-36.0 [facility] HoustonTahgjuaWBEEZPSUXM9405-55-53 04:03:00 Test Item Value Reference Range Interpretation Comments Platelet (test code = Platelet) 242 133-450 [facility] HoustonGstxxvlZVGQRQREHU3426-84-09 04:03:00 Test Item Value Reference Range Interpretation Comments MCH (test code = MCH) 32.1 pg 27.0-31.0 [facility] HoustonVptlfchPPDHWATIZV1952-74-45 04:03:00 Test Item Value Reference Range Interpretation Comments WBC (test code = WBC) 6.4 3.7-10.4 [facility] HoustonWzmthdfKHYAWPLSDO2575-14-28 04:03:00 Test Item Value Reference Range Interpretation Comments Hgb (test code = Hgb) 13.6 12.0-16.0 [facility] HoustonCwxjeioBECQBUYBDI5486-83-42 04:03:00 Test Item Value Reference Range Interpretation Comments Hct (test code = Hct) 40.0 36.0-48.0 [facility] HoustonEfjmsfdYGEHJCDGJE5882-94-34 04:03:00 Test Item Value Reference Range Interpretation Comments RBC (test code = RBC) 4.26 4.20-5.40 [facility] HoustonYzbxovqMPXGWESGLO5062-63-83 04:03:00 Test Item Value Reference Range Interpretation Comments MCV (test code = MCV) 93.9 80.0-98.0 [facility] HoustonT[id number] 04:03:00 Test Item Value Reference Range Interpretation Comments PTT (test code = PTT) 28.5 s 22.9-35.8 [facility] HoustonVjwtbbiKWESUVXDOV8887-34-82 04:03:00 Test Item Value Reference Range Interpretation Comments PT (test code = PT) 12.0 s 12.0-14.7 [facility] HoustonTsaiqqrZGOESQQKWL2397-04-93 04:03:00 Test Item Value Reference Range Interpretation Comments INR (test code = INR) 0.89 0.85-1.17 [facility] HoustonOodoyroAKKYYFZFGJ4908-60-98 04:03:00 Test Item Value Reference Range Interpretation Comments Eosinophils # (test code 0.3 See_Comment [A utomated message] The = Eosinophils #) system whic h generated this result tra nsmitted reference range : <=0.5. The reference r sudhir was not used to int erpret this result as normal/abnormal . [facility] [id number] 04:03:00 Test Item Value Reference Range Interpretation Comments Lymphocytes # (test code = Lymphocytes 2.0 1.0-5.5 #) [facility] Houst[id number] 04:03:00 Test Item Value Reference Range Interpretation Comments Monocytes # (test code 0.5 See_Comment [Aut omated message] The = Monocytes #) system which generated this result tra nsmitted reference range : <=0.8. The reference r sudhir was not used to int erpret this result as normal/abnormal . [facility] HoustonSnmhrpmXVGUYEAAZX1389-29-31 04:03:00 Test Item Value Reference Range Interpretation Comments Basophils # (test code 0.0 See_Comment [Aut omated message] The = Basophils #) system which generated this result tra nsmitted reference range : <=0.2. The reference r sudhir was not used to int erpret this result as normal/abnormal . [facility] HoustonZfijxpvAVAEFJUVJG2811-69-19 04:03:00 Test Item Value Reference Range Interpretation Comments Basophils (test code = 0.7 See_Comment [Aut omated message] The Basophils) system which ge nerated this result tra nsmitted reference range : <=1.0. The reference r sudhir was not used to int erpret this result as normal/abnormal . [facility] HoustonPevafzbTDCBRCMGJT9017-80-54 04:03:00 Test Item Value Reference Range Interpretation Comments Eosinophils (test code = 4.2 See_Comment [A utomated message] The Eosinophils) system which ge nerated this result tra nsmitted reference range : <=4.0. The reference r sduhir was not used to int erpret this result as normal/abnormal . [facility] HoustonQuravdgGWZKSEKVAK4651-84-44 04:03:00 Test Item Value Reference Range Interpretation Comments Segs-Bands # (test code = Segs-Bands #) 3.6 1.5-8.1 [facility] HoustonTbkiorpSMCUBQSOIZ1796-83-88 04:03:00 Test Item Value Reference Range Interpretation Comments Monocytes (test code = Monocytes) 7.6 2.0-12.0 [facility] HoustonNobycvyIGSOFBFVYG0961-00-77 04:03:00 Test Item Value Reference Range Interpretation Comments Lymphocytes (test code = Lymphocytes) 30.8 20.0-40.0 [facility] HoustonPmjhkxwPWLDJRBFEP0103-16-08 04:03:00 Test Item Value Reference Range Interpretation Comments Segs (test code = Segs) 56.7 45.0-75.0 [facility]
[2023-01-08 18:49] LABS: Absolute Lymphocytes (CBC) 1.9 K/uL (0.7-4.9); Hematocrit 36.9 % (36.0-45.0); Lymphocytes % 22.1 % (15.3-44.8); MCV 88.2 fL (80-100); MPV 7.6 fL (7.6-11.3); RBC Red Blood Cell Count 4.18 M/uL (3.86-4.86)
[2023-01-08 19:06] LABS: Albumin 3.6 g/dL (3.4-5.0); Bilirubin Total 0.4 mg/dL (0.2-1.0); Magnesium 2.1 mg/dL (1.6-2.4)
[2023-01-08 19:08] LABS: Potassium 2.9 mmol/L (3.5-5.1)
[2023-01-08 19:35] LABS: Blood Morphology Comment NOT SEEN (NOT SEEN); Platelet Estimate ADEQ
[2023-01-08] MEDS ORDERED: NA CHLORIDE 0.9% 100 ML ONE (20:19)
[2023-01-08] MEDS ORDERED: Meropenem 1000 MG/VIAL IV ONE (20:22)
[2023-01-08] MEDS: Meropenem 1,000 MG in NA CHLORIDE 0.9% 100 ML IV SCH (20:28)
[2023-01-08] MEDS: NA CHLORIDE 0.9% 1,000 ML IV SCH (20:29)
[2023-01-08] MEDS: ENOXAPARIN 40 MG/0.4 ML SQ SCH (20:29)
[2023-01-08] MEDS: KCL 20 MEQ/100 mL IVPB 20 MEQ/100 ML BAG IV SCH (20:30)
[2023-01-08] MEDS ORDERED: Meropenem 1,000 MG in NA CHLORIDE 0.9% 100 ML IV SCH (21:00)
[2023-01-08] MEDS ORDERED: ACETAMINOPHEN 325 MG TABLET PO ONE (21:22)
[2023-01-08] MEDS ORDERED: COLCHICINE 0.6 MG TAB PO PRN (21:23)
[2023-01-08] MEDS ORDERED: MELOXICAM 7.5 MG TAB PO PRN (21:23)
[2023-01-09 00:03] LABS: Urine Bacteria <20 /HPF (<20); Urine Bilirubin NEGATIVE (Negative); Urine Blood Negative (Negative); Urine Clarity Clear (Clear); Urine Color Yellow (Yellow); Urine Glucose NEGATIVE (Negative); Urine Mucus Slight /HPF (None Seen); Urine Protein TRACE (Negative); Urine RBC <5 /HPF (None Seen); Urine Urobilinogen Normal (Normal); Urine pH 5.5 (5.0-7.0)
[2023-01-09] MEDS: KCL 20 MEQ/100 mL IVPB 20 MEQ/100 ML BAG IV SCH ×2 (00:47→03:08)
--- NOTE | 2023-01-09 04:37 | HP ---
Date of Admission: 01/08/2023 HAI/MODL Voice ID: [id number] MTDD
--- NOTE | 2023-01-09 05:12 | HP ---
Date of Admission: 01/08/2023 Chief Complaint: Feeling weak. History Of Present Illness: This is a 72-year-old very pleasant female patient, who came into office today, complaining of feeling really weak and tired. Does not have quite as good appetite lately and reported that on January 03, which is 5 days ago, she had acute onset of fever and nausea. She came into our local emergency room, where she was evaluated, diagnosed as having pyelonephritis, and she was given 1 dose of IV antibiotic in the emergency room, and she was discharged to go home with oral cephalosporin group of antibiotics. The patient came in to see me today for followup at office and she has not had any more fever, but she does not feel like she is back to her normal self. I reviewed hospital record, found out the patient had blood work done, urinalysis, urine culture, and CAT scan, and CAT scan showed evidence of bilateral pyelonephritis. Urinalysis was abnormal consistent with urinary tract infection. Urine culture and blood culture grew E coli and it was ESBL. So, I have reviewed all these test results with the patient and recommended for her to be admitted to the hospital for IV antibiotic therapy and once arrangements made, the patient was admitted to the hospital. Allergies: TO CODEINE, CAUSING NAUSEA. Review of Systems: Constitutional: As mentioned above. Genitourinary: As mentioned above. All other systems reviewed and negative. Medications: Aspirin 81 mg daily, allopurinol 300 mg daily, atorvastatin 40 mg daily in the evening, colchicine 0.6 mg 2 times a day as needed for gout, Farxiga 5 mg daily, hydrochlorothiazide 25 mg p.o. daily, levothyroxine 25 mcg p.o. daily, losartan 100 mg p.o. daily, meloxicam 15 mg p.o. daily as needed for arthritis, metoprolol succinate 25 mg p.o. daily, oxybutynin 5 mg p.o. two times a day. Past Medical History: Significant for hypothyroidism, hypertension, hyperlipidemia, coronary artery disease, type 2 diabetes mellitus, lumbar spondylosis, and gout. Past Surgical History: Hysterectomy and right knee surgery. Family History: Father , had heart disease. Mother , also had heart disease; and brother of myocardial infarction at age 58. Social History: Negative for smoking and alcohol use. Physical Examination: Vital Signs: Blood pressure 110/71, pulse 65, temperature 97.9, respiratory rate 16, weight 221.4 pounds, height 72 inches. General: Awake, alert, oriented, not in distress. HEENT: Head atraumatic, normocephalic. Conjunctivae nonerythematous. Sclerae white. Mouth, no thrush or edema noted. Ears/Nose, no mass, lesion, discharge noted. Neck: Supple. No JVD, lymph nodes, bruit, thyromegaly noted. Lungs: Bilateral good equal air entry. Clear to auscultation. No rhonchi. No rales. Heart: Normal heart sounds, no murmur or gallop. Abdomen: Soft, bowel sounds normal. No guarding, rigidity, tenderness, mass, hepatosplenomegaly, distention, or bruit noted. Extremities: No leg edema. No calf tenderness. Skin: No rash, ulcer, cellulitis. Lymphatics: No lymph node enlargement in neck, supraclavicular, infraclavicular region. Neuro: No focal neurological deficit. Chest: Unremarkable. External Genitalia: Deferred. Rectal: Deferred. Laboratory Data: On January 03, 2023 her white count was 9.5, hemoglobin 14.2, platelets 191. Sodium 133, potassium 3.1, chloride 97, bicarb 27, BUN 25, creatinine 1.23, glucose 117. Liver function tests unremarkable. Urine culture and blood culture grew E coli, which was ESBL and today's blood work result is pending. CAT scan of the abdomen and pelvis shows changes of pyelonephritis in both kidneys. Impression: 1. Sepsis, organism Escherichia coli, extended spectrum beta-lactamase. 2. Acute pyelonephritis, bilateral, organism Escherichia coli, extended spectrum beta-lactamase. 3. Coronary artery disease. 4. Hypertension. 5. Hyperlipidemia. 6. Type 2 diabetes mellitus. 7. Hypothyroidism. 8. Lumbar spondylosis. 9. Gout. 10. Volume depletion. Plan: We will go ahead and admit the patient to hospital for further evaluation and management of this problem. The patient is appropriate for inpatient and is expected to spend 2 midnights in hospital. We will start her on DVT prophylaxis using Lovenox per order. For diabetes, we will manage it with sliding scale insulin while in the hospital. For her hypertension, we will continue hypertensive medication per order. Monitor blood pressure and make adjustment on blood pressure medication as it becomes necessary. Volume depletion problem will be addressed with help of IV fluid hydration. We will monitor her electrolytes and renal function. For her coronary artery disease, we will continue her aspirin therapy. Continue her metoprolol and for hyperlipidemia, continue her statin therapy per order. We will start her on meropenem and plan is to give her total 2 weeks of IV meropenem and order for PICC line placement. All these details discussed with the patient today and also informed her that I will be out of town until Thursday and hospitalist will look after her in my absence and I have called the hospitalist and discussed details with the hospitalist as well, Dr. Guy, who will take over this patient's care starting tomorrow. I have informed the patient that she should come, see me next week for followup visit at office. HAI/TELLO Voice ID: [id number] MTDD
[2023-01-09] MEDS: LEVOTHYROXINE SOD 0.025 MG TAB PO SCH (06:31)
[2023-01-09] MEDS: LOSARTAN POTASSIUM 50 MG TABLET PO SCH (08:21)
[2023-01-09] MEDS: ASPIRIN 81 MG CHEWABLE TABLET PO SCH (08:21)
[2023-01-09] MEDS: TRAMADOL 37.5mg/APAP 325mg PER TAB PO PRN ×2 (08:21→20:28)
[2023-01-09] MEDS: METOPROLOL XL 25 MG TAB PO SCH (08:23)
[2023-01-09] MEDS: oxyBUTYnin chloride 5 MG TAB PO SCH ×2 (08:23→20:28)
[2023-01-09] MEDS: Meropenem 1,000 MG in NA CHLORIDE 0.9% 100 ML IV SCH ×2 (08:24→20:25)
[2023-01-09] MEDS: NA CHLORIDE 0.9% 1,000 ML IV SCH ×2 (08:25→20:26)
[2023-01-09] MEDS: ENOXAPARIN 40 MG/0.4 ML SQ SCH (08:34)
[2023-01-09] MEDS ORDERED: LOSARTAN POTASSIUM 50 MG TABLET PO SCH (09:00)
[2023-01-09] MEDS ORDERED: METOPROLOL XL 25 MG TAB PO SCH (09:00)
[2023-01-09] MEDS ORDERED: hydroCHLOROthiazide 25 MG TAB PO SCH ×2 (09:00)
--- NOTE | 2023-01-09 10:56 | RAD REPORT ---
EXAM DESCRIPTION: RAD - Chest Single View - 01/09/2023 10:30 am CLINICAL HISTORY: picc placement COMPARISON: No comparisons FINDINGS: Lines: PICC tip overlies the proximal to mid SVC. Lungs: No evidence of edema or pneumonia. Pleural: No significant pleural effusions or pneumothorax. Cardiac: The heart size is within normal limits. Mediastinum: Within normal limits. Bones: No acute fractures. Other: None IMPRESSION: No acute cardiopulmonary disease. PICC tip in satisfactory position overlying the proxim al to mid SVC.
--- NOTE | 2023-01-09 12:42 | P.PN ---
Subjective Date of Service: 01/09/23 Chief Complaint: ESBL sepsis Subjective: Improving (Patient is improving doing well denies any fever or chills she had fallen recently planing of back pain) Review of Systems 10-point ROS is otherwise unremarkable General: Weakness Musculoskeletal: Back Pain Physical Examination - Vital Signs Temperature: 98.3 F Blood Pressure: 134/85 Pulse: 63 Respirations: 16 Pulse Ox (%): 98 - Physical Exam General: Alert, Oriented x3 Neck: Supple Respiratory: Clear to auscultation bilaterally Cardiovascular: No edema, Normal S1 S2 - Studies Laboratory Data (last 24 hrs) 01/09/23 11:00: Potassium 3.6 D 01/08/23 18:35: Sodium 137, Potassium 2.9 L*, BUN 21 H, Creatinine 1.12 H, Glucose 106, Magnesium 2.1, Total Bilirubin 0.4, AST 64 H, ALT 115 H, Alkaline Phosphatase 66 01/08/23 18:35: WBC 8.50, Hgb 12.7, Hct 36.9, Plt Count 402 Assessment And Plan - Current Problems (Diagnosis) (1) ESBL (extended spectrum beta-lactamase) producing bacteria infection Current Visit: Yes Status: Acute Plan: Patient is 72 years of age admitted with ESBL bacteremia and cystitis is currently has a PICC line and will be dual for 2 weeks of IV meropenem therapy at home also had a recent fall complaining of back pain will start on some Ultracet patient's vital signs are stable hemodynamically stable get physical therapy ambulate (2) Hypokalemia Current Visit: Yes Status: Acute Plan: I suspect is secondary to hydrochlorothiazide with Will hold replace potassium check Chem-7
[2023-01-09] MEDS ORDERED: POTASSIUM CL SA 10 MEQ TAB PO ONE (15:24)
[2023-01-09] MEDS: POTASSIUM 25 MEQ EFFERV TAB PO SCH ×2 (15:26→20:27)
[2023-01-09] MEDS: ATORVASTATIN 40 MG TAB PO SCH (20:28)
[2023-01-10] MEDS: LEVOTHYROXINE SOD 0.025 MG TAB PO SCH (06:18)
[2023-01-10 06:53] LABS: Potassium 3.8 mmol/L (3.5-5.1)
[2023-01-10 07:24] VITALS: BMI 29.0
[2023-01-10] MEDS: Meropenem 1,000 MG in NA CHLORIDE 0.9% 100 ML IV SCH ×2 (09:00→21:09)
[2023-01-10] MEDS: NA CHLORIDE 0.9% 1,000 ML IV SCH (09:33)
[2023-01-10] MEDS: LOSARTAN POTASSIUM 50 MG TABLET PO SCH (09:34)
[2023-01-10] MEDS: METOPROLOL XL 25 MG TAB PO SCH (09:34)
[2023-01-10] MEDS: TRAMADOL 37.5mg/APAP 325mg PER TAB PO PRN (09:34)
[2023-01-10] MEDS: oxyBUTYnin chloride 5 MG TAB PO SCH ×2 (09:35→21:08)
[2023-01-10] MEDS: ASPIRIN 81 MG CHEWABLE TABLET PO SCH (09:35)
[2023-01-10] MEDS: POTASSIUM 25 MEQ EFFERV TAB PO SCH ×2 (09:36→21:08)
[2023-01-10] MEDS: ENOXAPARIN 40 MG/0.4 ML SQ SCH (09:36)
--- NOTE | 2023-01-10 09:45 | P.PN ---
Subjective Date of Service: 01/10/23 Chief Complaint: ESBL sepsis lower back pain Patient mainly complains of her lower back pain particularly on turning to the left side worse since her recent fall she has had a history of disc problems otherwise no fever chills recent blood cultures negative Review of Systems Unremarkable Musculoskeletal: As per HPI Physical Examination - Vital Signs Temperature: 98.3 F Blood Pressure: 132/65 Pulse: 65 Respirations: 16 Pulse Ox (%): 99 - Physical Exam General: Alert, In no apparent distress, Oriented x3 HEENT: Atraumatic Neck: Supple Respiratory: Clear to auscultation bilaterally Cardiovascular: No edema, Regular rate/rhythm, Normal S1 S2 - Studies Laboratory Data (last 24 hrs) 01/10/23 06:26: Sodium 141, Potassium 3.8, BUN 14, Creatinine 0.79, Glucose 94 01/09/23 11:00: Potassium 3.6 D Microbiology Data (last 24 hrs): 01/08/23 19:50 Clean Catch Urine [place] Count - Final 01/08/23 19:50 Clean Catch Urine - Final MIXED EDD. Assessment And Plan - Current Problems (Diagnosis) (1) ESBL (extended spectrum beta-lactamase) producing bacteria infection Current Visit: Yes Status: Acute Plan: Doing well repeat blood cultures negative continue with meropenem she has a PICC line and cannot afford the co-pay [facility] (2) Hypokalemia Current Visit: Yes Status: Acute Plan: Resolved continue with potassium replacement (3) Low back pain Current Visit: Yes Status: Acute Plan: Patient is complaining of low back pain worse when turning to the left side worse since the recent fall he had a problem with disc degenerative disc before we will plan to do CT scan of this of the thoracic and lumbar spine [facility] patient does ambulate with difficult Qualifiers: Chronicity: acute Back pain laterality: midline
--- NOTE | 2023-01-10 11:27 | RAD REPORT ---
EXAM DESCRIPTION: CT - Spine Lumbar Wo Con - 01/10/2023 11:14 am CLINICAL HISTORY: Severe lower back pain COMPARISON: No comparisons TECHNIQUE: Axial noncontrast CT imaging of the lumbar spine was performed with coronal and sagittal re-formatted images. All CT scans are performed using dose optimization technique as appropriate and may include automated exposure control or mA/KV adjustment according to patient size. FINDINGS: No acute lumbar spine fracture seen. No aggressive marrow pattern or malalignment. Paraspinal tissues are normal in thickness. No paraspinal abscess or hematoma seen. Moderate disc height loss at L5-S1. Moderate right neural foraminal narrowing is noted. The left neur al foramen is adequate. No central spinal stenosis. Intervertebral disc disease assessment is inherently limited by CT. Within these limitations, no high -grade canal stenosis suspected. Atherosclerosis. IMPRESSION: No acute fracture lumbar spine. Moderate degenerate disc disease at L5-S1. Consider MRI follow-up for assessment of disc disease if clinically desired.
--- NOTE | 2023-01-10 11:31 | RAD REPORT ---
EXAM DESCRIPTION: CT - Thoracic Spine W/o Cont - 01/10/2023 11:15 am CLINICAL HISTORY: back pain recent fall COMPARISON: No comparisons TECHNIQUE: Axial CT imaging through the thoracic spine was performed with coronal and sagittal re-fo rmatted images. All CT scans are performed using dose optimization technique as appropriate and may include automated exposure control or mA/KV adjustment according to patient size. FINDINGS: Vertebral body heights and disc spaces are maintained. A compression fracture is not prese nt. No significant disc space narrowing. Thoracic spine alignment is within normal limits. No paraspinal masses or hematoma. Disc height loss is present at multiple levels which is at most mild to moderate. This is in the midt horacic levels. Intervertebral disc detail is inherently limited on CT without gross findings of canal compromise. Left subclavian approach PICC. Coronary artery calcifications. IMPRESSION: No acute fracture of the thoracic spine. Degenerative disc disease that is overall mild. No central spinal stenosis appreciated. MRI is more sensitive.
[2023-01-10] MEDS: HYDROCODONE/APAP 7.5/325 MG TAB PO PRN ×2 (14:40→21:12)
[2023-01-10] MEDS: ATORVASTATIN 40 MG TAB PO SCH (21:08)
[2023-01-11] MEDS: LEVOTHYROXINE SOD 0.025 MG TAB PO SCH (05:48)
[2023-01-11 06:46] LABS: Potassium 4.2 mmol/L (3.5-5.1)
[2023-01-11] MEDS: oxyBUTYnin chloride 5 MG TAB PO SCH (08:42)
[2023-01-11] MEDS: LOSARTAN POTASSIUM 50 MG TABLET PO SCH (08:42)
[2023-01-11] MEDS: ENOXAPARIN 40 MG/0.4 ML SQ SCH (08:43)
[2023-01-11] MEDS: METOPROLOL XL 25 MG TAB PO SCH (08:43)
[2023-01-11] MEDS: ASPIRIN 81 MG CHEWABLE TABLET PO SCH (08:43)
[2023-01-11] MEDS: POTASSIUM 25 MEQ EFFERV TAB PO SCH (08:44)
[2023-01-11] MEDS: Meropenem 1,000 MG in NA CHLORIDE 0.9% 100 ML IV SCH (08:44)
[2023-01-11] MEDS: HYDROCODONE/APAP 7.5/325 MG TAB PO PRN ×2 (08:50→16:33)
--- NOTE | 2023-01-11 10:07 | P.PN ---
Subjective Date of Service: 01/11/23 Chief Complaint: ESBL sepsis lower back pain Patient denies any fever changes feel well apart from the lower back pain problems with disc before still has pain on turning Review of Systems General: Weakness Musculoskeletal: Back Pain Physical Examination - Vital Signs Temperature: 97.5 F Blood Pressure: 145/63 Pulse: 62 Respirations: 16 Pulse Ox (%): 98 - Physical Exam General: Alert, In no apparent distress, Oriented x3 Respiratory: Clear to auscultation bilaterally Cardiovascular: No edema, Regular rate/rhythm, Normal S1 S2 - Studies Laboratory Data (last 24 hrs) 01/11/23 : Sodium Cancelled, Potassium Cancelled, BUN Cancelled, Creatinine Cancelled, Glucose Cancelled 01/11/23 05:42: Sodium 142, Potassium 4.2, BUN 13, Creatinine 0.78, Glucose 93 Microbiology Data (last 24 hrs): 01/08/23 19:50 Clean Catch Urine [place] Count - Final 01/08/23 19:50 Clean Catch Urine - Final MIXED EDD. Assessment And Plan - Current Problems (Diagnosis) (1) ESBL (extended spectrum beta-lactamase) producing bacteria infection Current Visit: Yes Status: Acute Plan: Doing much better blood cultures are negative continue with meropenem for a total of 2 weeks patient to be discharged to the detention has been accepted (2) Hypokalemia Current Visit: Yes Status: Acute Plan: Resolved avoid Dyazide diuretic (3) Low back pain Current Visit: Yes Status: Acute Plan: Still complaining of lower back axial pain CT scan of the lumbar and the thoracic spine is all negative may have an element of disc herniation stable MRI in 3 to 4 weeks there is no evidence of lower extremity weakness will add scheduled diclofenac and use Ultracet or record on as needed basis supplied a lidocaine patch Qualifiers: Chronicity: acute Back pain laterality: midline
[2023-01-11] MEDS ORDERED: LIDOCAINE 4% PATCH TOP SCH (10:30)
[2023-01-11] MEDS ORDERED: DICLOFENAC SOD D.R. 75 MG TAB PO SCH (10:30)
[2023-01-11 15:58] VITALS: BP 104/62; TEMP 98.4
[2023-01-11 17:49] VITALS: O2SAT 95
--- NOTE | 2023-01-12 08:35 | P.DS ---
Admission Date: 01/08/23 Discharge Date: 01/12/23 Disposition: ROUTINE DISCHARGE Discharge Condition: FAIR Reason for Admission: ESBL sepsis lower back pain - Problems (1) ESBL (extended spectrum beta-lactamase) producing bacteria infection Status: Acute (2) Hypokalemia Status: Acute (3) Low back pain Status: Acute Qualifiers: Chronicity: acute Back pain laterality: midline Brief History of Present Illness: Age 72 AW ESBL bactermeria. Tx with IV merem. Repeat blood cultures neg. C/o back pain due to recetn fall. CT of spine DJD, Uncomplicated hosp stay. DC to NH for IV antibiotics for 2 wks Hospital Course: Uncomplicated course. Pt has a PIC line. Labs unremarkable. DC to NH for IV AB. Pain meds for low back pain. At the timeof DC alert resp. Chest clear. vitals stable Vital Signs/Physical Exam: Temp Pulse Resp BP Pulse Ox 98.4 F 61 16 104/62 95 01/11/23 15:57 01/11/23 15:57 01/11/23 16:33 01/11/23 15:57 01/11/23 16:33 Laboratory Data at Discharge: WBC 8.50 K/uL (4.3-10.9) 01/08/23 18:35 Hgb 12.7 g/dL (12.0-15.0) 01/08/23 18:35 Hct 36.9 % (36.0-45.0) 01/08/23 18:35 Plt Count 402 K/uL (152-406) 01/08/23 18:35 Sodium Cancelled 01/11/23 Unknown Potassium Cancelled 01/11/23 Unknown BUN Cancelled 01/11/23 Unknown Creatinine Cancelled 01/11/23 Unknown Glucose Cancelled 01/11/23 Unknown Magnesium 2.1 mg/dL (1.6-2.4) 01/08/23 18:35 Total Bilirubin 0.4 mg/dL (0.2-1.0) 01/08/23 18:35 AST 64 U/L (15-37) H 01/08/23 18:35 ALT 115 U/L (13-56) H 01/08/23 18:35 Alkaline Phosphatase 66 U/L (45-117) 01/08/23 18:35 Home Medications: Aspirin Chewable [Aspirin Chewable*] 81 mg PO DAILY 01/08/23 Atorvastatin Calcium [Lipitor] 40 mg PO BEDTIME 01/08/23 Cholecalciferol (Vitamin D3) [Vitamin D3] 2,000 unit PO DAILY 01/08/23 Colchicine [Colcrys *] 0.6 mg PO DAILY PRN 01/08/23 Levothyroxine Sodium 25 mcg PO [id number] 01/08/23 Losartan Potassium 100 mg PO DAILY 01/08/23 Meloxicam 15 mg PO DAILYPRN PRN 01/08/23 Metoprolol Succinate 25 mg PO DAILY 01/08/23 Ubidecarenone/Vit E Acet [Co Q-10 100 mg Softgel] 1 each PO DAILY 01/08/23 Vitamin B Complex [B Complex] 1 each PO DAILY 01/08/23 oxyBUTYnin chloride [Ditropan*] 10 mg PO BID 01/08/23 Dapagliflozin Propanediol [Farxiga] 5 mg PO DAILY 01/09/23 oxyBUTYnin chloride [Ditropan*] 10 mg PO BID tab 01/11/23
== END 2023-01-11 17:35 | disposition home or self-care (01) | DRG 872 ==
LOC: 2ND 18:09
PROVIDERS: ADMIT Internal Medicine; ATTEND Internal Medicine Sleep Medicine
PROC: 02HV33Z Insertion of Infusion Device into Superior Vena Cava, Percutaneous Approach (ICD-10-PCS; principal; 2023-01-09)
DX: A41.51 Sepsis due to Escherichia coli [E. coli] (principal); Z16.12 Extended spectrum beta lactamase (ESBL) resistance; N10 Acute pyelonephritis; E03.9 Hypothyroidism, unspecified; E78.5 Hyperlipidemia, unspecified; E86.9 Volume depletion, unspecified; M10.9 Gout, unspecified; E87.6 Hypokalemia; I10 Essential (primary) hypertension; M47.896 Other spondylosis, lumbar region; I25.10 Atherosclerotic heart disease of native coronary artery without angina pectoris; Z88.5 Allergy status to narcotic agent; Z79.82 Long term (current) use of aspirin; Z79.890 Hormone replacement therapy; Z79.899 Other long term (current) drug therapy; Z90.710 Acquired absence of both cervix and uterus; Z20.822 Contact with and (suspected) exposure to COVID-19
CPT/HCPCS: 36415; 36569; 71045; 72128; 72131; 80048; 80053; 81001; 83605; 83735; 84132; 85025; 87040; 87086; 87088; 87811; J1650; J2001; J2185; J3480; J7030

== ENCOUNTER 2023-11-04 00:33 | Emergency (ER) | payer OTHER ==
[2023-11-04] MEDS ORDERED: NA CHLORIDE 0.9% 1,000 ML ONE (01:31)
[2023-11-04] MEDS ORDERED: ONDANSETRON 4 MG/2 ML VIAL ONE (01:31)
[2023-11-04] MEDS ORDERED: MORPHINE 4 MG/ML SYR ONE (01:31)
[2023-11-04 02:03] LABS: Protime INR 1.11
[2023-11-04 02:04] LABS: Hematocrit 40.5 % (36.0-45.0); MCV 88.5 fL (80-100); RBC Red Blood Cell Count 4.58 M/uL (3.86-4.86)
[2023-11-04 02:05] LABS: Absolute Lymphocytes (CBC) 1.6 K/uL (0.7-4.9); Lymphocytes % 25.3 % (15.3-44.8); MPV 8.1 fL (7.6-11.3); Platelets 201 thou/uL (152-406)
[2023-11-04 02:12] LABS: Renal Epithelial <5 /HPF (None Seen); Specific Gravity < 1.005 (1.005-1.030); Transitional Epithelial <5 /HPF (None Seen); Urine Bacteria <20 /HPF (<20); Urine Bilirubin NEGATIVE (Negative); Urine Blood 3+ (OVER) (Negative); Urine Clarity Extremely Turbid (Clear); Urine Color Light-Red (Yellow); Urine Glucose NEGATIVE (Negative); Urine Mucus Slight /HPF (None Seen); Urine Protein 2+ (Negative); Urine Urobilinogen Normal (Normal); Urine WBC Clump Rare /HPF (None Seen); Urine pH 6.5 (5.0-7.0)
[2023-11-04 02:15] LABS: Albumin 3.9 g/dL (3.4-5.0); Bilirubin Total 0.7 mg/dL (0.2-1.0); Potassium 3.6 mEq/L (3.5-5.1); Protein, Total 7.7 g/dL (6.4-8.2)
--- NOTE | 2023-11-04 03:41 | ER ---
Nurse's Notes [facility] Name: Carol Tilley Age: 73 yrs Sex: Female : 1950 Arrival Date: 11/04/2023 Time: 00:33 Bed 8 Private MD: Diagnosis: Acute cystitis with hematuria Presentation: 11/04 00:49 Chief complaint: Patient states: I went to see my DR today for UTI. I was put on jb4 Levofloxacin for UTI and started noticing blood in my urine at 1730 with increased pain with urination. It has gotten worse and now I am passing clots and feeling dizzy when walking. Coronavirus screen: At this time, the client does not indicate any symptoms associated with coronavirus-19. Ebola Screen: No symptoms or risks identified at this time. Initial Sepsis Screen: Does the patient meet any 2 criteria? No. Patient's initial sepsis screen is negative. Does the patient have a suspected source of infection? Yes: Dysuria/Frequency/Urgency/UTI. Risk Assessment: Do you want to hurt yourself or someone else? Patient reports no desire to harm self or others. Onset of symptoms was November 04, 2023. Transition of care: patient was not received from another setting of care. 00:49 Method Of Arrival: Wheelchair jb4 00:49 Acuity: GAURANG 3 jb4 Historical: - Allergies: 00:52 Codeine; nausea; jb4 00:52 Latex; jb4 - PMHx: 00:52 Hypertensive disorder; Chronic UTI (Hypertensive disorder); jb4 - PSHx: 00:52 Knee (Hypertensive disorder); Hesterectomy (Hypertensive disorder); jb4 - Immunization history:: Adult Immunizations up to date. - Social history:: Smoking status: Patient/guardian denies using tobacco. Screenin:55 [facility] ED Fall Risk Assessment (Adult) History of falling in the last 3 months, jj7 including since admission No falls in past 3 months (0 pts) Confusion or Disorientation No (0 pts) Intoxicated or Sedated No (0 pts) Impaired Gait No (0 pts) Mobility Assist Device Used No (0 pt) Altered Elimination No (0 pt) Score/Fall Risk Level 0 - 2 = Low Risk Oriented to surroundings, Maintained a safe environment, Educated pt \T\ family on fall prevention, incl call for assistance when getting out of bed. Abuse screen: Denies threats or abuse. Nutritional screening: No deficits noted. Tuberculosis screening: No symptoms or risk factors identified. Assessment: 00:55 General: Appears in no apparent distress. uncomfortable, Behavior is calm, cooperative, jj7 appropriate for age. Pain: Complains of pain in abdomen Pain currently is 5 out of 10 on a pain scale. 00:55 : Reports burning with urination, pain in bilateral with urination, HEMATURIA. jj7 02:00 Reassessment: Patient appears in no apparent distress at this time. Patient and/or jw7 family updated on plan of care and expected duration. Pain level reassessed. Patient is alert, oriented x 3, equal unlabored respirations, skin warm/dry/pink. 03:15 Reassessment: Patient appears in no apparent distress at this time. Patient and/or jw7 family updated on plan of care and expected duration. Pain level reassessed. Patient is alert, oriented x 3, equal unlabored respirations, skin warm/dry/pink. Vital Signs: 00:49 BP 176 / 95; Pulse 72; Resp 16; Temp 97.8(O); Pulse Ox 99% on R/A; Weight 100.24 kg jb4 (R); Height 6 ft. 0 in. ; 02:00 BP 148 / 75; Pulse 62; Resp 17; Pulse Ox 98% ; jj7 03:03 BP 149 / 87; Pulse 58; Resp 20; Pulse Ox 100% ; jj7 03:58 BP 165 / 80; Pulse 66; Resp 15; Pulse Ox 98% ; jj7 00:49 Body Mass Index 29.97 (100.24 kg, 182.88 cm) 4 ED Course: 00:36 Patient arrived in ED. gm2 00:49 Karis Gee FNP-C is PHCP. kb 00:49 Bubba Flores MD is Attending Physician. kb 00:52 Triage completed. jb4 00:52 Arm band placed on right wrist. jb4 00:55 Bed in low position. Call light in reach. Side rails up X 1. Adult w/ patient. jj7 01:30 Inserted saline lock: 20 gauge in right antecubital area, using aseptic technique. jj7 Blood collected. 01:45 PT-INR Sent. jj7 01:45 Type And Screen Sent. jj7 01:45 CBC with Diff Sent. jj7 01:45 CMP Sent. jj7 01:45 Urinalysis w/ reflexes Sent. jj7 03:04 CT Abd/Pelvis - IV Contrast Only In Process Unspecified. EDMS 03:41 Erin Sy MD is Referral Physician. sp4 03:57 No provider procedures requiring assistance completed. IV discontinued, intact, jj7 bleeding controlled, No redness/swelling at site. Pressure dressing applied. Administered Medications: 01:45 Drug: morphine IVP or IV 4 mg IVP once over 4 mins Route: IVP; Infused Over: 4 mins; jj7 Site: right antecubital; 03:44 Follow up: Response: Marked relief of symptoms jj7 01:45 Drug: Ondansetron IVP 4 mg IVP once; over 2 minutes Route: IVP; Site: right antecubital;jj7 03:44 Follow up: Response: No adverse reaction jj7 01:45 Drug: NS 0.9% IV 500 ml IV at bolus once Route: IV; Rate: bolus; Site: right j7 antecubital; 02:15 Follow up: IV Status: Completed infusion jj7 02:58 Drug: NS 0.9% IV 1000 ml IV at 125 ml/hr continuous Route: IV; Rate: 125 ml/hr; Site: [facility] right antecubital; 03:50 Follow up: IV Status: Completed infusion jj7 03:57 Drug: Phenazopyridine PO 200 mg PO once Route: PO; jj7 03:59 Follow up: Response: No adverse reaction jj7 03:57 Drug: traMADol PO 100 mg PO once Route: PO; jj7 03:59 Follow up: Response: No adverse reaction jj7 03:57 Drug: Ondansetron PO 4 mg PO once Route: PO; jj7 03:59 Follow up: Response: No adverse reaction jj7 Medication: 00:55 VIS not applicable for this client. jj7 Outcome: 03:41 Discharge ordered by . sp4 03:57 Discharged to home ambulatory, jj7 03:57 Condition: improved 03:57 Discharge instructions given to patient, Instructed on discharge instructions, medication usage, Demonstrated understanding of instructions, medications, Prescriptions given X 2, 03:59 Patient left the ED. jj7 Signatures: Dispatcher [employer] EDMS Karis Gee, BILL SUBSTANCE ABUSE SPECIALIST-Fabiano Bañuelos RN RN jb4 Nelia Armstrong RN RN jw7 Rick Torres RN RN jj7 Bubba Flores MD MD sp4 Janeen Montes 2
--- NOTE | 2023-11-04 03:42 | EDPHYS ---
Physician Documentation [facility] Name: Carol Tilley Age: 73 yrs Sex: Female : 1950 Arrival Date: 11/04/2023 Time: 00:33 Bed 8 Private MD: ED Physician Bubba Flores HPI: 11/04 00:50 This 73 yrs old Female presents to ER via Unassigned with complaints of Pain sp4 With Urination, passing clots. 00:55 Patient is a 73-year-old female who presents for hematuria that started at 5:30 PM kb today. States she has had a UTI since the end of August, has had 2 rounds of antibiotics and started of third today which was Levaquin. States she has not had any bleeding until today. Denies fever. Reports abdominal pain.. Historical: - Allergies: 00:52 Codeine; nausea; jb4 00:52 Latex; jb4 - PMHx: 00:52 Hypertensive disorder; Chronic UTI (Hypertensive disorder); jb4 - PSHx: 00:52 Knee (Hypertensive disorder); Hesterectomy (Hypertensive disorder); jb4 - Immunization history:: Adult Immunizations up to date. - Social history:: Smoking status: Patient/guardian denies using tobacco. ROS: 00:55 Constitutional: Negative for fever, chills, and weight loss, kb 00:55 Abdomen/GI: Positive for abdominal pain, 00:55 : Positive for urinary symptoms, urinary frequency, small amounts, hematuria, burning with urination, difficulty urinating, 00:55 All other systems are negative, Exam: 00:55 Constitutional: This is a well developed, well nourished patient who is awake, alert, kb and in no acute distress. Head/Face: Normocephalic, atraumatic. ENT: Moist Mucous membranes Cardiovascular: Regular rate Respiratory: Respirations even and unlabored. No increased work of breathing. Talking in full sentences Skin: Warm, dry with normal turgor. Normal color. MS/ Extremity: Pulses equal, no cyanosis. Neurovascular intact. Full, normal range of motion. Neuro: Awake and alert, GCS 15, oriented to person, place, time, and situation. Moves all extremities. Normal gait. 00:55 Abdomen/GI: Inspection: abdomen appears normal, Bowel sounds: normal, Palpation: soft, in all quadrants, moderate abdominal tenderness, in the right lower quadrant, Vital Signs: 00:49 BP 176 / 95; Pulse 72; Resp 16; Temp 97.8(O); Pulse Ox 99% on R/A; Weight 100.24 kg jb4 (R); Height 6 ft. 0 in. ; 02:00 BP 148 / 75; Pulse 62; Resp 17; Pulse Ox 98% ; jj7 03:03 BP 149 / 87; Pulse 58; Resp 20; Pulse Ox 100% ; jj7 03:58 BP 165 / 80; Pulse 66; Resp 15; Pulse Ox 98% ; jj7 00:49 Body Mass Index 29.97 (100.24 kg, 182.88 cm) jb4 MDM: 00:49 Patient medically screened. kb 00:55 Differential diagnosis: UTI, pyelonephritis. Data reviewed: vital signs, nurses notes. kb Transition of care: After a detail discussion of the patient's case, care is transferred to Bubba Flores MD. 02:23 Differential Diagnosis altered mental status, sepsis, flu. sp4 03:29 ED course: CT report - FINDINGS: Lung bases: Unremarkable. No mass. No consolidation. sp4 Mediastinum: Small hiatal hernia. ABDOMEN: Liver: Unremarkable. No mass. Gallbladder and bile ducts: Unremarkable. No calcified stones. No ductal dilation. Pancreas: Mild prominence of the pancreatic duct in the pancreatic head. Spleen: Unremarkable. No splenomegaly. Adrenals: Unremarkable. No mass. Kidneys and ureters: Unremarkable. No solid mass. No hydronephrosis. Stomach and bowel: Postsurgical changes in the sigmoid colon. No obstruction. No mucosal thickening. PELVIS: Appendix: No findings to suggest acute appendicitis. Bladder: There is some debris in the bladder. Reproductive: Uterus is not seen. ABDOMEN and PELVIS: Intraperitoneal space: Unremarkable. No free air. No significant fluid collection. Bones/joints: Disc space narrowing with degenerative endplate changes at L5-S1. No acute fracture. No dislocation. Soft tissues: Unremarkable. Vasculature: Scattered atherosclerotic vascular calcifications. No abdominal aortic aneurysm. Lymph nodes: Unremarkable. No enlarged lymph nodes. IMPRESSION: No acute finding in the abdomen/pelvis. . 11/04 00:50 Order name: Urinalysis w/ reflexes; Complete Time: 02:27 kb 11/04 00:51 Order name: CBC with Diff; Complete Time: 02:17 sp4 11/04 00:51 Order name: CMP; Complete Time: 02:17 sp4 11/04 00:51 Order name: Type And Screen; Complete Time: 03:29 sp4 11/04 00:51 Order name: PT-INR; Complete Time: 02:17 sp4 11/04 02:21 Order name: Urine Culture EDMS 11/04 00:55 Order name: CT Abd/Pelvis - IV Contrast Only kb 11/04 00:51 Order name: IV Saline Lock; Complete Time: 01:45 sp4 11/04 00:51 Order name: Labs collected and sent; Complete Time: 01:45 sp4 Administered Medications: 01:45 Drug: morphine IVP or IV 4 mg IVP once over 4 mins Route: IVP; Infused Over: 4 mins; jj7 Site: right antecubital; 03:44 Follow up: Response: Marked relief of symptoms jj7 01:45 Drug: Ondansetron IVP 4 mg IVP once; over 2 minutes Route: IVP; Site: right antecubital;jj7 03:44 Follow up: Response: No adverse reaction jj7 01:45 Drug: NS 0.9% IV 500 ml IV at bolus once Route: IV; Rate: bolus; Site: right jj7 antecubital; 02:15 Follow up: IV Status: Completed infusion jj7 02:58 Drug: NS 0.9% IV 1000 ml IV at 125 ml/hr continuous Route: IV; Rate: 125 ml/hr; Site: 7 right antecubital; 03:50 Follow up: IV Status: Completed infusion jj7 03:57 Drug: Phenazopyridine PO 200 mg PO once Route: PO; jj7 03:59 Follow up: Response: No adverse reaction jj7 03:57 Drug: traMADol PO 100 mg PO once Route: PO; jj7 03:59 Follow up: Response: No adverse reaction jj7 03:57 Drug: Ondansetron PO 4 mg PO once Route: PO; jj7 03:59 Follow up: Response: No adverse reaction jj7 Disposition: 02:22 Co-signature as Attending Physician, Bubba Flores MD I agree with the assessment sp4 and plan of care. I reviewed the patient's care provided by Advanced Practice Provider \T\ agree w/ the diagnosis \T\ care plan. I personally saw the pt \T\ performed a substantive portion of the visit, incldng all aspects of the (History/Exam/Medical Decision Making). Disposition Summary: 11/04/23 03:41 Discharge Ordered Notes: Location: Home sp4 Problem: new sp4 Symptoms: have improved sp4 Condition: Stable sp4 Diagnosis - Acute cystitis with hematuria sp4 Followup: sp4 - With: Erin Sy MD - When: 7 - 10 days - Reason: Recheck today's complaints Discharge Instructions: - Discharge Summary Sheet sp4 - Urinary Tract Infection, Adult sp4 Forms: - Patient Portal Instructions sp4 Prescriptions: - Pyridium 200 mg Oral Tablet - take 1 tablet ORAL route every 8 hours for 3 days; 9 tablet; Refills: 0, sp4 Product Selection Permitted - Tramadol 50 mg Oral tablet - take 1 tablet ORAL route every 8 hours as needed; 20 tablet; Refills: 0, sp4 Product Selection Permitted Signatures: Dispatcher [employer] EDKaris Hays, METAL DRESSER-C METAL DRESSER-CkFabiano Lewis, RN RN jb4 Nelia Armstrong RN RN jw7 Rick Torres RN RN jj7 Bubba Flores MD MD sp4
[2023-11-04] MEDS ORDERED: PHENAZOPYRIDINE 100MG TAB PO ONE (04:01)
[2023-11-04] MEDS ORDERED: TRAMADOL HCL 50 MG TAB ONE (04:02)
[2023-11-04] MEDS ORDERED: ONDANSETRON 4 MG (ODT) TAB ONE (04:02)
[2023-11-04 04:21] VITALS: TEMP 97.8
[2023-11-04 04:39] VITALS: BP 165/80; O2SAT 98
--- NOTE | 2023-11-04 12:33 | RAD REPORT ---
EXAM DESCRIPTION: CT - Abdomen Pelvis W Contrast - 11/04/2023 6:43 am CLINICAL HISTORY: The patient is 73 years old and is Female; ABD PAIN TECHNIQUE: Axial computed tomography images of the abdomen and pelvis with intravenous contrast. S agittal and coronal reformatted images were created and reviewed. This CT exam was performed using one or more of the following dose reduction techniques: automated exposure control, adjustment of t he mA and/or kV according to patient size, and/or use of iterative reconstruction technique. COMPARISON: No relevant prior studies available. FINDINGS: Lung bases: Unremarkable. No mass. No consolidation. Mediastinum: Small hiatal hernia. ABDOMEN: Liver: Unremarkable. No mass. Gallbladder and bile ducts: Unremarkable. No calcified stones. No ductal dilation. Pancreas: Mild prominence of the pancreatic duct in the pancreatic head. Spleen: Unremarkable. No splenomegaly. Adrenals: Unremarkable. No mass. Kidneys and ureters: Unremarkable. No solid mass. No hydronephrosis. Stomach and bowel: Postsurgical changes in the sigmoid colon. No obstruction. No mucosal thickening. PELVIS: Appendix: No findings to suggest acute appendicitis. Bladder: There is some debris in the bladder. Reproductive: Uterus is not seen. ABDOMEN and PELVIS: Intraperitoneal space: Unremarkable. No free air. No significant fluid collection. Bones/joints: Disc space narrowing with degenerative endplate changes at L5-S1. No acute fracture. No dislocation. Soft tissues: Unremarkable. Vasculature: Scattered atherosclerotic vascular calcifications. No abdominal aortic aneurysm. Lymph nodes: Unremarkable. No enlarged lymph nodes. IMPRESSION: No acute finding in the abdomen/pelvis. Electronically signed by: Per Aviles MD 11/04/2023 03:25 AM [facility] Due to temporary technical issues with the PACS/Fluency reporting system, reports are being signed by the in house radiologist without review as a courtesy to ensure prompt reporting. The interpreting r adiologist is fully responsible for the content of the report.
== END 2023-11-04 03:59 | disposition home or self-care (01) ==
LOC: ER 00:33
DX: N30.01 Acute cystitis with hematuria (principal); Z88.5 Allergy status to narcotic agent; Z91.040 Latex allergy status
CPT/HCPCS: 87088; 85025; 81001; 87086; 36415; 86900; 86850; 85610; 86901; 80053; 74177; Q9967; Q0162; J2405; J7030

== ENCOUNTER 2024-01-13 08:16 | Day surgery (SDC) | payer OTHER ==
--- NOTE | 2024-01-12 15:40 | RAD REPORT ---
EXAM DESCRIPTION: Tamiko Campbell And Armando (2 Views)01/12/2024 3:22 pm CLINICAL HISTORY: Pre op umbical hernia repair COMPARISON: 2022 FINDINGS: The lungs appear clear of acute infiltrate. The heart is normal size IMPRESSION: No acute abnormalities displayed
[2024-01-12 15:56] LABS: Absolute Lymphocytes (CBC) 1.4 K/uL (0.7-4.9); Hematocrit 42.5 % (36.0-45.0); Lymphocytes % 31.8 % (15.3-44.8); MCV 89.6 fL (80-100); MPV 8.1 fL (7.6-11.3); Platelets 190 thou/uL (152-406); RBC Red Blood Cell Count 4.75 M/uL (3.86-4.86)
[2024-01-12 15:57] LABS: Potassium 4.2 mEq/L (3.5-5.1)
[2024-01-13] MEDS ORDERED: CEFAZOLIN SODIUM 1 GM/VIAL ONE (08:31)
[2024-01-13] MEDS ORDERED: Ringers Lactate 1,000 ML IV ONE (08:31)
[2024-01-13] MEDS ORDERED: FENTANYL CITR 100 MCG/2 ML ONE ×2 (08:55→11:57)
[2024-01-13] MEDS ORDERED: ROCURONIUM 50 MG/5 ML VIAL IV ONE ×2 (08:55→11:13)
[2024-01-13] MEDS ORDERED: propofoL 200 MG/20 ML VIAL IV ONE (08:55)
[2024-01-13] MEDS ORDERED: LIDOCAINE 2% MPF 5 ML VIAL ONE (08:55)
[2024-01-13] MEDS ORDERED: ONDANSETRON 4 MG/2 ML VIAL ONE (08:55)
[2024-01-13] MEDS: CEFAZOLIN SODIUM 1 GM/VIAL ONE (10:12)
[2024-01-13] MEDS ORDERED: EPHEDRINE SULF 50 MG/ML VIAL ONE (10:13)
[2024-01-13] MEDS ORDERED: dexAMETHasone 10 MG/ML VIAL ONE (10:13)
[2024-01-13] MEDS ORDERED: GLYCOPYRROLATE 0.2 MG/ML SYR ONE ×2 (10:13→11:45)
[2024-01-13] MEDS ORDERED: NEOSTIGMINE 1 MG/ML -10 ML VIAL ONE (11:45)
--- NOTE | 2024-01-13 11:58 | P.BOP ---
Preoperative diagnosis: incarcerated ventral hernia Postoperative diagnosis: multiple incarcerated incisional ventral hernias, extensivwe intrabd adhesi Primary procedure: 1. Laparoscopic repir of multiple incarcerated incisional ventral hernias Secondary procedure: 2. Laparoscopic extensive intrabdominal adhesions Estimated blood loss: <50cc Specimen: none Findings: 3 ventral incisional hernias with small bowel content Anesthesia: General Complications: None Transferred to: Recovery Room Condition: Good
[2024-01-13 12:51] VITALS: BP 134/66
[2024-01-13 12:52] VITALS: O2SAT 97
[2024-01-13 13:59] VITALS: TEMP 97
--- NOTE | 2024-01-14 16:13 | EKG ---
Test Date: 2024-01-12 Test Time: 16:04:35 Home Office Claims Examiner: PREO MEASUREMENT RESULTS: Intervals: Rate: 54 MI: 158 QRSD: 98 QT: 438 QTc: 415 [place]: P: 46 MI: 158 QRS: 56 T: 43 INTERPRETIVE STATEMENTS: Sinus bradycardia Otherwise normal ECG No previous ECG available for comparison Electronically Signed On 01-14-24 16:06:26 BEARING PRESS MACHINE OPERATOR by Fransisco Sanchez
--- NOTE | 2024-01-16 01:02 | OP ---
Date of Procedure: 01/13/2024 Surgeon: Kyler Payne MD Preoperative Diagnosis: Incarcerated ventral hernia. Postoperative Diagnoses: Multiple incarcerated incisional ventral hernia, extensive intraabdominal a dhesions. Procedures: 1.Laparoscopic repair of multiple x3 incarcerated incisional ventral hernias. 2.Laparoscopic extensive intraabdominal lysis of adhesions. Estimated Blood Loss: Less than 50 cc. Specimens: None. Hernias: The 3 hernias covered an area to about 8 cm since they were adjacent. Anesthesia: General plus local. Complications: None. Indications: This is a case of a 73-year-old patient, comes to us with lower abdominal pain, diagnos ed with incisional hernia and the small bowel loops going through it, so we discussed pros and cons o f hernia repair. She agreed with laparoscopic, possible open repair of incisional ventral hernia wit h possible mesh with benefits, alternatives, and risks including, but not limited to, infection, blee ding, damage to adjacent structures, anesthesia complication, recurrence, [place], and even . She al so understood this may not relieve symptoms. She might need more than one surgical intervention. Olinda arriaza signed a consent. Procedure In Detail: The patient was brought to the operating room, placed in supine position. Anes thesia was done without complication. Abdominal area was prepped and draped in sterile fashion. Mar raf 0.5% was injected for local anesthetic, followed by sharp incision of the skin in the epigastri c area. We noticed on the CAT scan there were many areas that she can have potential intestines to t he anterior abdominal wall. She had multiple midline incisions, but we found an area near the upper ventral region where we did not see any scar, so we made an incision in that area and went through th e fascia, and put the Geni trocar through it and that will allow me to do the diagnostic lap and ta ke care of the rest of the trocars as we visualized the abdomen. Indeed that is what we did. We put the trocar under direct visualization and then we were able to place another 5 mm trocar, and throug h those we were able to then identify area. There were many abdominal adhesions. We spent more than half the time of the entire case just doing lysis of adhesions, that was with the help of LigaSure. Once we had those adhesions down, we were sequentially then removing the intestines from the anterio r abdominal wall and once we finished, we noticed the patient to have 3 different hernias present. T he intestines were reduced safely with no enterotomies. We proceeded then to identify those, make a few incisions that will be helping us to close this on the primary repair. Those 3 areas were identi fied and then we proceeded to close each one of them with Prolene stitches #1 in a [id number] fa shion multiple times. We verified laparoscopically that the intestines were still clean and that the re was an air seal to it. Each one was done individually. We verified once again that the adhesions that we removed previously and the bowel that we reduced were still intact and viable, and that is i ndeed what happened. No bleeding seen. At that moment, I proceeded then to deflate the pneumoperito neum, removed the trocars, irrigated the subcutaneous tissue and closed the subcutaneous tissue with 3-0 chromic and the skin with a subcuticular closure. Sponge count and instrument counts were correc t. The patient tolerated procedure well. The patient was sent to recovery in stable condition. MARCELO/TELLO Voice ID: [id number] Report ID: [id number]
--- NOTE | 2024-01-16 01:03 | DS ---
Date of Discharge: 01/13/2024 Diagnosis: Incarcerated multiple ventral incisional hernias with extensive intraabdominal adhesions. Procedures: Laparoscopic repair of multiple incarcerated incisional ventral hernias and laparoscopic extensive lysis of adhesions. Disposition: Home. Activity: As tolerated. No heavy lifting. Followup: In my office in 1 week. Call for appointment [phone]. Keep area dry for 48 hours, then may shower. Keep Steri-Strip intact. Abdominal binder while out of bed. If she does not tolerate p .o. pain meds or she cannot be controlled with p.o. pain meds, then she may have to stay overnight fo r observation and pain control. MARCELO/TELLO Voice ID: [id number] Report ID: [id number]
== END 2024-01-13 13:55 | disposition home or self-care (01) ==
LOC: OR 08:16
PROVIDERS: ATTEND Surgery
PROC: 0DNW4ZZ Release Peritoneum, Percutaneous Endoscopic Approach (ICD-10-PCS; 2024-01-13)
PROC: 0WQF4ZZ Repair Abdominal Wall, Percutaneous Endoscopic Approach (ICD-10-PCS; principal; 2024-01-13 10:30)
DX: K43.0 Incisional hernia with obstruction, without gangrene (principal); K66.0 Peritoneal adhesions (postprocedural) (postinfection)
CPT/HCPCS: 49594; 49329; 93005; 85025; 80048; 36415; 71046; J2704; J2710; J2001; J3010 ×2; J1100; J2405; J7120; J0690 ×2